=== PATIENT | female | born 1970 | race Caucasian/White ===

== ENCOUNTER → 2017-04-14 | Outpatient (CLI) | payer OTHER, SELFPAY | PROVIDERS: Visit Provider Nurse Practitioner Family | DX: J40 Bronchitis, not specified as acute or chronic (principal); R30.0 Dysuria | CPT/HCPCS: 80053; 80061; 81001; 82607; 82746; 84439; 84443; 85025 ==

== ENCOUNTER → 2017-05-26 09:58 | Outpatient (REF) | payer OTHER, SELFPAY ==
[2017-05-26 14:43] LABS: Basophils # 0.1 K/mm3 (0-0.2); Basophils % 0.9 % (0.1-2.0); Eosinophils # 0.2 K/mm3 (0.0-0.4); Eosinophils % 2.6 % (0.1-12.0); Hematocrit 45.7 % (37.0-47.0); Hemoglobin 14.6 g/dL (12.2-16.2); Lymphocytes # 2.3 K/mm3 (0.7-4.5); Lymphocytes % 25.6 K/mm3 (10-50); Mean Corpuscular Hemoglobin 30.7 pg (27.0-31.2); Mean Platelet Volume 7.9 fl (7.4-10.4); Monocytes # 0.5 K/mm3 (0.1-1.0); Monocytes % 5.2 % (1.7-9.3); Neutrophils # 5.9 K/mm3 (1.8-7.8); Neutrophils % 65.8 % (37.0-80.0); Platelet Count 362 K/mm3 (142-424); Red Blood Count 4.76 M/mm3 (4.20-5.40); Red Cell Distribution Width 12.3 % (11.5-17.5); White Blood Count 8.9 K/mm3 (4.8-10.8)
[2017-05-26 15:40] LABS: Alanine Aminotransferase 14 U/L (12-78); Albumin Level 4.1 gm/dL (3.4-5.0); Albumin/Globulin Ratio 1.2 (1.1-1.8); Alkaline Phosphatase 66 U/L (46-116); Anion Gap 13.4 mEq/L (5-15); Aspartate Amino Transferase 10 U/L (15-37); Bilirubin,Total 0.4 mg/dL (0.2-1.0); Blood Urea Nitrogen 7 mg/dL (7-18); Carbon Dioxide 27 mmol/L (21.0-32.0); Chloride 106 mmol/L (98-107); Creatinine,Serum 0.76 mg/dL (0.55-1.02); Estimated Glomerular Filt Rate 81 ml/min (>60); GFR (African American) 98 ML/MIN (>60); Globulin 3.3 gm/dl (1.3-3.2); Glucose 84 mg/dL (74-106); Potassium 4.4 mmoL/L (3.5-5.1); Sodium 142 mmol/L (136-145); Total Protein,Serum 7.4 gm/dL (6.4-8.2)
[2017-05-27 08:23] LABS: Iron 84 ug/dL (27-159); UIBC 156 ug/dL (131-425)
[2017-05-27 19:23] LABS: Iron Saturation 35 % (15-55)
== END ==
LOC: LAB 09:58
PROVIDERS: Visit Provider Nurse Practitioner Family
DX: E16.2 Hypoglycemia, unspecified (principal); D72.829 Elevated white blood cell count, unspecified; E66.1 Drug-induced obesity
CPT/HCPCS: 80053; 83550; 85025

== ENCOUNTER → 2017-10-17 09:46 | Outpatient (CLI) | payer OTHER, SELFPAY ==
[2017-10-17 10:32] VITALS: PULSE 68; PULSE 72
== END ==
PROVIDERS: Family Provider Nurse Practitioner Family; PCP Nurse Practitioner Family; Visit Provider Nurse Practitioner Family
DX: J44.9 Chronic obstructive pulmonary disease, unspecified (principal); R06.02 Shortness of breath
CPT/HCPCS: 94060; 94640

== ENCOUNTER → 2018-02-06 12:41 | Outpatient (POV) | payer OTHER, SELFPAY ==
--- NOTE | 2018-02-06 14:29 | XR_ITS ---
XR chest 2V HISTORY: ITS.REASON: COPD ORDERING PHYSICIAN: Josemanuel Carmona MD PATIENT AGE: 47 years COMPARISON: 12/26/2013 FINDINGS: There is hyperinflation with attenuation of the peripheral pulmonary vessels consistent with COPD. Calcified granuloma is noted in the anterior clear space. No lobar consolidation or collapse. There are some minimal fibrotic changes in the anterior clear space. No acute bony anomalies. IMPRESSION: COPD, no change with no acute finding
== END ==
PROVIDERS: Family Provider Nurse Practitioner Family; PCP Nurse Practitioner Family; Visit Provider Internal Medicine
DX: J44.9 Chronic obstructive pulmonary disease, unspecified (principal)
CPT/HCPCS: 71046

== ENCOUNTER → 2018-03-02 11:08 | Outpatient (CLI) | payer OTHER, SELFPAY ==
--- NOTE | 2018-03-02 11:10 | XR_ITS ---
XR chest 2V HISTORY: ITS.REASON: cough ORDERING PHYSICIAN: Amanda Jacome PATIENT AGE: 47 years COMPARISON: 02/06/2018 FINDINGS: The cardiomediastinal silhouette and pulmonary vascularity are within normal limits. There is opacification in the right middle lobe consistent with pneumonia. No obvious effusion. No acute bony anomalies. Probable nipple artifact overlying the left lower lung zone. IMPRESSION: Right middle lobe pneumonia
== END ==
LOC: RAD 11:09
PROVIDERS: PCP Emergency Medicine; Visit Provider Nurse Practitioner Family
DX: R05 Cough (principal); R06.02 Shortness of breath; R09.89 Other specified symptoms and signs involving the circulatory and respiratory systems
CPT/HCPCS: 71046

== ENCOUNTER → 2018-06-19 09:53 | Outpatient (POV) | payer OTHER, SELFPAY | PROVIDERS: Visit Provider Internal Medicine | DX: Z00.00 Encounter for general adult medical examination without abnormal findings (principal) ==

== ENCOUNTER → 2018-07-25 09:07 | Outpatient (CLI) | payer OTHER, SELFPAY ==
--- NOTE | 2018-07-25 09:35 | XR_ITS ---
XR chest 2V HISTORY: ITS.REASON: pneumonia ORDERING PHYSICIAN: Amanda Jacome PATIENT AGE: 48 years COMPARISON: PA and lateral chest 03/02/2018 FINDINGS: The cardiomediastinal silhouette and pulmonary vascularity are within normal limits. There is minimal post inflammatory scarring right middle lobe but I doubt residual or recurrent pneumonia. The remainder lung garg are clear. There is no pleural fluid. IMPRESSION: Nonacute chest findings
[2018-07-25 09:55] LABS: Basophils # 0.1 K/mm3 (0-0.2); Basophils % 0.7 % (0.1-2.0); Eosinophils # 0.3 K/mm3 (0.0-0.4); Eosinophils % 3.1 % (0.1-12.0); Hematocrit 43.2 % (37.0-47.0); Hemoglobin 14.6 g/dL (12.2-16.2); Lymphocytes # 2.1 K/mm3 (0.7-4.5); Lymphocytes % 23.6 % (10-50); Mean Corpuscular HGB Conc 33.9 g/dL (31.8-35.4); Mean Corpuscular Hemoglobin 32.3 pg (27.0-31.2); Mean Corpuscular Volume 95.2 fl (81-99); Mean Platelet Volume 6.5 fl (7.4-10.4); Monocytes # 0.5 K/mm3 (0.1-1.0); Monocytes % 5.6 % (1.7-9.3); Neutrophils # 5.9 K/mm3 (1.8-7.8); Platelet Count 397 K/mm3 (142-424); Red Blood Count 4.54 M/mm3 (4.20-5.40); Red Cell Distribution Width 12.8 % (11.5-17.5); White Blood Count 8.7 K/mm3 (4.8-10.8)
== END ==
PROVIDERS: PCP Nurse Practitioner Family; Visit Provider Nurse Practitioner Family
DX: D72.829 Elevated white blood cell count, unspecified (principal); J18.1 Lobar pneumonia, unspecified organism
CPT/HCPCS: 36415; 71046; 85025

== ENCOUNTER → 2018-09-20 11:17 | Outpatient (CLI) | payer OTHER, SELFPAY ==
--- NOTE | 2018-09-20 11:24 | XR_ITS ---
XR chest 2V HISTORY: ITS.REASON: cough ORDERING PHYSICIAN: Amanda Jacome APRN PATIENT AGE: 48 years COMPARISON: 07/25/2018 FINDINGS: The cardiomediastinal silhouette and pulmonary vascularity are within normal limits. COPD. Mild pectus deformity with some silhouetting out of the right heart border. No lobar consolidation or collapse. Bilateral nipple artifact. Old granulomatous disease. IMPRESSION: COPD, no change with no acute finding.
== END ==
PROVIDERS: PCP Nurse Practitioner Family; Visit Provider Nurse Practitioner Family
DX: R05 Cough (principal); J44.9 Chronic obstructive pulmonary disease, unspecified
CPT/HCPCS: 71046

== ENCOUNTER → 2018-12-11 11:11 | Outpatient (POV) | payer OTHER, SELFPAY | PROVIDERS: Visit Provider Internal Medicine | DX: Z00.00 Encounter for general adult medical examination without abnormal findings (principal) ==

== ENCOUNTER → 2019-03-13 11:39 | Outpatient (CLI) | payer OTHER, SELFPAY ==
--- NOTE | 2019-03-13 11:51 | XR_ITS ---
PROCEDURE: XR CERVICAL SPINE 4V CLINICAL INDICATION: neck pain COMPARISON: No exams were available for comparison FINDINGS: Normal alignment. No fracture or dislocation. No lytic or blastic change. The disc spaces are well preserved. There are minimal uncovertebral and facet hypertrophic changes on the left with mild foraminal narrowing of the left C3-C4 and C4-C5 foramen. No cervical rib IMPRESSION: There are minimal uncovertebral and facet hypertrophic changes on the left with mild foraminal narrowing of the left C3-C4 and C4-C5 foramen Otherwise negative cervical spine Dictated by: Ajay Soler MD 03/13/2019 18:06 Electronically signed by Ajay Soler MD in [place] 03/13/2019 18:06
== END ==
PROVIDERS: PCP Nurse Practitioner Family; Visit Provider Nurse Practitioner Family
DX: M54.2 Cervicalgia (principal)
CPT/HCPCS: 72050

== ENCOUNTER → 2019-11-29 16:37 | Outpatient (CLI) | payer OTHER, MEDICAID, SELFPAY ==
[2019-11-29 17:28] LABS: Basophils # 0.1 K/mm3 (0-0.2); Basophils % 0.7 % (0.1-2.0); Eosinophils # 0.3 K/mm3 (0.0-0.4); Eosinophils % 3.4 % (0.1-12.0); Hematocrit 43.2 % (37.0-47.0); Hemoglobin 14.2 g/dL (12.2-16.2); Lymphocytes # 2.6 K/mm3 (0.7-4.5); Lymphocytes % 26.2 % (10-50); Mean Corpuscular HGB Conc 32.9 g/dL (31.8-35.4); Mean Corpuscular Hemoglobin 31.8 pg (27.0-31.2); Mean Corpuscular Volume 96.5 fl (81-99); Mean Platelet Volume 8.3 fl (7.4-10.4); Monocytes # 0.4 K/mm3 (0.1-1.0); Neutrophils # 6.6 K/mm3 (1.8-7.8); Neutrophils % 65.7 % (37.0-80.0); Platelet Count 396 K/mm3 (142-424); Red Blood Count 4.47 M/mm3 (4.20-5.40); Red Cell Distribution Width 12.9 % (11.5-17.5); White Blood Count 10.1 K/mm3 (4.8-10.8)
[2019-11-29 17:29] LABS: Chloride 107 mmol/L (98-107); Potassium 4.7 mmoL/L (3.5-5.1); Sodium 144 mmol/L (136-145)
[2019-11-29 17:31] LABS: Alanine Aminotransferase 5 U/L (12-78); Aspartate Amino Transferase 22 U/L (14-36); Blood Urea Nitrogen 7 mg/dl (7-17); Estimated Glomerular Filt Rate 89 ml/min (>60); GFR (African American) 107 ML/MIN (>60)
[2019-11-29 17:32] LABS: Albumin Level 4.7 g/dl (3.5-5.0); Albumin/Globulin Ratio 1.5 (1.1-1.8); Alkaline Phosphatase 77 U/L (38-126); Anion Gap 17.7 mEq/L (5-15); Bilirubin,Total 0.5 mg/dl (0.2-1.3); Calcium 10.3 mg/dl (8.4-10.2); Carbon Dioxide 24 mmol/L (22.0-30.0); Chol/HDL Ratio 3.7 (1-3.5); Cholesterol 182 mg/dl (140-200); Globulin 3.1 g/dL (1.3-3.2); Glucose 89 mg/dl (74-100); HDL Cholesterol 49 mg/dl (40-60); Total Protein,Serum 7.8 g/dl (6.3-8.2); Triglycerides 116 mg/dl (30-150); VLDL Cholesterol 23 mg/dL (0-40)
[2019-11-29 17:43] LABS: Direct LDL Cholesterol 108.26 mg/dL (100-129)
[2019-11-29 19:41] LABS: Hemoglobin A1C 5.7 % (4.0-6.0)
== END ==
PROVIDERS: Visit Provider Family Medicine
DX: J44.9 Chronic obstructive pulmonary disease, unspecified (principal); R73.9 Hyperglycemia, unspecified
CPT/HCPCS: 80053; 80061; 83036; 85025

== ENCOUNTER → 2019-12-17 07:55 | Outpatient (CLI) | payer OTHER, MEDICAID, SELFPAY ==
--- NOTE | 2019-12-17 07:56 | CT_ITS ---
PROCEDURE: CT CHEST WO CON CLINICAL INDICATION: lung collapse ?Lung collapse,,soa,,smoker shortness of air, smoker, lung collapse, COMPARISON: CT CHESTW CT chest w con from 07/16/2018 TECHNIQUE: Axial images obtained with sagittal and coronal reformats. All CT scans at the facility use one or more dose reduction, viz: automated exposure control, ma/kV adjustment per patient size (including targeted exams where dose is matched to indication, i.e. head), or iterative reconstruction technique. FINDINGS: HEART AND MEDIASTINAL STRUCTURES: There are coronary artery calcifications. No mediastinal or hilar mass or adenopathy evident. No central airway obstruction LUNGS AND PLEURAL SPACES: There is hyperinflation with attenuation of the peripheral pulmonary vessels consistent with COPD. Scarring is present in the lung apices and the left upper lobe medially. Atelectasis/scarring noted in the right upper lobe medially which appears somewhat more prominent compared to the previous exam. There are also atelectatic or fibrotic changes in the right lung base. The volume loss/atelectatic changes in the right lung base has shown some improvement compared to the previous exam. There is now some peripheral subpleural opacity noted in the right lung base posteriorly consistent with an area of atelectasis or patchy infiltrate. In the upper lung zones there is a faint diffuse mosaic attenuation. Calcified granuloma is present in the left upper lobe medially. The right middle lobe collapse has improved since the previous exam. There does remain some volume loss in the medial aspect of the right middle lobe BONY STRUCTURES: No acute bony abnormalities apparent. UPPER ABDOMEN: Unremarkable. Previously there was noted celiac artery stenosis. This is not adequately evaluated without IV contrast on today's exam. ADDITIONAL FINDINGS: No other significant abnormalities. IMPRESSION: 1. COPD with scattered areas of atelectasis/fibrosis in the right upper lobe, left upper lobe, right lower lobe, and the right middle lobe. These areas of volume loss in the right middle lobe and right lower lobe has shown improvement. The atelectatic changes in the right upper lobe are slightly worse. There is a new patchy area of infiltrate in the subpleural region in the right lower lobe posteriorly. Bronchiolitis obliterans with organizing pneumonia is a consideration. 2. There is a mild diffuse mosaic attenuation appearance of the upper lung zones. This is nonspecific and could be seen with pulmonary infection such as atypical pneumonia or interstitial lung disease. Dictated by: Ajay Soler MD 12/18/2019 09:05 Ajay Soler MD in [place] 12/18/2019 09:05
[2019-12-17 09:47] LABS: Coronavirus 19 IgG Antibody Negative (Negative); Coronavirus 19 IgM Antibody Negative (Negative)
== END ==
PROVIDERS: PCP Nurse Practitioner Family; Visit Provider Internal Medicine Pulmonary Disease
DX: Z01.818 Encounter for other preprocedural examination (principal); J98.19 Other pulmonary collapse
CPT/HCPCS: 36415; 71250; 86328

== ENCOUNTER 2019-12-18 09:21 | Day surgery (SDC) | payer OTHER, MEDICAID, SELFPAY ==
[2019-12-16 12:46] VITALS: BMI 23.0
[2019-12-18] VITALS (12 sets, daily range): BP systolic 109–156; BP diastolic 68–89; PULSE 77–108; RESP 16–18; TEMP 36.4–36.6; O2SAT 94–100
[2019-12-18 09:55] LABS: Urine Pregnancy, HCG Qual. Negative (Negative)
--- NOTE | 2019-12-18 10:15 | SUR.PREOP ---
I started pt IV in left wrist. she complained of pain at insertion site. IV went in easily with blood return. IV flushed with no difficulty. No swelling or bruising at IV site. Fluids were started. Pt stated that it still hurt. Site was checked again. No bruising or infiltration seen. Fluids were dripping freely. I asked if she would prefer us to remove the IV and restart in another location. She stated it doesn't hurt that much and did not want a new IV started.
--- NOTE | 2019-12-18 13:56 | HMH.PROC ---
[facility] Procedure Note Procedure Note:: Bronchoscopy: Performed under conscious sedation, total of 125 MCG of fentanyl and 4 mg of Versed given for the procedure. Clean bronchoscope was introduced to the left naris and advanced to the vocal cords, 1% 5 cc of lidocaine was injected there and then bronchoscope advanced into the trachea and 1% 5 cc of lidocaine were injected combined into the main trachea, right and left bronchus. These were examined to the subsegmental bronchi. Mild mucous secretions noted. All the airways appeared normal except the jose between the right heel and lateral segment is not sharp. However the right middle lobe medial and lateral segment bronchi grossly appeared patent. BAL was performed the right middle lobe medial segment and sent for analysis. Patient tolerated the procedure well without any complications. We will see the patient in clinic in 10 days.
== END 2019-12-18 11:09 | disposition home or self-care (01) ==
LOC: OUTP 09:22
PROVIDERS: PCP Nurse Practitioner Family; Visit Provider Internal Medicine Pulmonary Disease
PROC: (CPT 31624; principal; 2019-12-18 10:15)
DX: J98.19 Other pulmonary collapse (principal); J18.1 Lobar pneumonia, unspecified organism; Z72.0 Tobacco use; J44.9 Chronic obstructive pulmonary disease, unspecified; Z79.51 Long term (current) use of inhaled steroids; Z79.899 Other long term (current) drug therapy; Z88.0 Allergy status to penicillin; Z88.8 Allergy status to other drugs, medicaments and biological substances
CPT/HCPCS: 31624; 81025; 87070; 87102; 87205; 87206; 99152

== ENCOUNTER → 2020-02-11 15:21 | Outpatient (CLI) | payer OTHER, MEDICAID, SELFPAY ==
--- NOTE | 2020-02-11 15:43 | ECG_ITS ---
APPROVED REPORT Exam: Resting ECG HR:71 bpm ECG Measurements Heart Rate 71 AXES IN 166 P 55 QRSd 84 QRS 69 QT 392 T 69 QTc 425 Conclusion Normal sinus rhythm Normal ECG Electronically signed by : Jimy Shankar, 02/24/2020 16:37:42
[2020-02-11 15:48] LABS: Basophils # 0.1 K/mm3 (0-0.2); Basophils % 0.9 % (0.1-2.0); Eosinophils # 0.3 K/mm3 (0.0-0.4); Hematocrit 40.2 % (37.0-47.0); Hemoglobin 12.9 g/dL (12.2-16.2); Lymphocytes # 2.8 K/mm3 (0.7-4.5); Lymphocytes % 34.8 % (10-50); Mean Corpuscular Volume 96.9 fl (81-99); Mean Platelet Volume 6.9 fl (7.4-10.4); Monocytes # 0.4 K/mm3 (0.1-1.0); Monocytes % 4.9 % (1.7-9.3); Neutrophils # 4.5 K/mm3 (1.8-7.8); Neutrophils % 55.4 % (37.0-80.0); Platelet Count 408 K/mm3 (142-424); Red Blood Count 4.15 M/mm3 (4.20-5.40); White Blood Count 8.1 K/mm3 (4.8-10.8)
[2020-02-11 18:24] LABS: Chloride 103 mmol/L (98-107); Potassium 4.4 mmoL/L (3.5-5.1); Sodium 139 mmol/L (136-145)
[2020-02-11 18:27] LABS: Anion Gap 13.4 mEq/L (5-15); Blood Urea Nitrogen 10 mg/dl (7-17); Carbon Dioxide 27 mmol/L (22.0-30.0); Estimated Glomerular Filt Rate 76 ml/min (>60); GFR (African American) 92 ML/MIN (>60)
[2020-02-11 18:28] LABS: Calcium 9.3 mg/dl (8.4-10.2); Glucose 115 mg/dl (74-100)
[2020-02-11 19:46] LABS: Coronavirus 19 IgG Antibody Negative (Negative); Coronavirus 19 IgM Antibody Negative (Negative)
== END ==
PROVIDERS: Visit Provider Otolaryngology
DX: Z01.818 Encounter for other preprocedural examination (principal); D49.89 Neoplasm of unspecified behavior of other specified sites; L98.9 Disorder of the skin and subcutaneous tissue, unspecified
CPT/HCPCS: 36415; 80048; 85025; 86328; 93005

== ENCOUNTER 2020-02-13 06:34 | Day surgery (SDC) | payer OTHER, MEDICAID, SELFPAY ==
[2020-02-11 14:54] VITALS: BMI 23.0
[2020-02-13 06:57] LABS: HCG Qualitative, Serum Negative (Negative)
[2020-02-13 07:04] VITALS: BP 141/74; PULSE 77; RESP 18; TEMP 36.9; O2SAT 100
--- NOTE | 2020-02-13 07:33 | HMH.ANESCL ---
[facility] Anesthesia Checklist - Structural Data Admitted From: Home Planned Operative Procedure/s: excision facial lesions x 2 Consent for Planned Operative Procedure(s) Verified: Yes - Additional verifications Anesthesia Reactions: No Hx Blood Transfusions: No Blood Transfusion Reaction: No - Airway Assessment C-Spine Mobility Assessed: Yes TMJ Mobility Assessed: Yes Dentition: Edentulous - Neurological Assessment Level of Consciousness: Awake, Alert, Appropriate - Anesthesia Plan Anesthesia Risk discussed: Yes Anesthesia Plan: Verified ASA Class: II Anesthesia Type: MAC [facility] History I have reviewed the patient's past medical history: Yes Medical History: Reports:: Chronic Obstructive Pulmonary Disease (COPD) Denies:: Cancer, Diabetes Mellitus Type 1, Diabetes Mellitus Type 2, Internal Pacemaker, MRSA, Seizures *Have you ever received a pneumonia vaccine?: Yes *Have you received a flu vaccine this season?: Yes Other Medical History: Denies: Blood Transfusion Reaction Anesthesia experience/problems:: none Other Surgeries: Yes: Cholecystectomy, Diagnostic Lap, Skin Cancer Excision, Other. No: Colonoscopy, Pacemaker Amputation: No Fractures: Yes - *Social History Smoking Status: Current every day smoker Tobacco Type: cigarettes # Packs/Day (cigarettes): 1 Alcohol Intake: never Substance Use Type: denies use *Occupational Status:: employed Housing: house Household Members: family *Travel in the last 8 weeks: None Family Hx:: No significant family history
[2020-02-13 08:30] VITALS: BP 145/81; PULSE 84; RESP 18; TEMP 36.2; O2SAT 98
--- NOTE | 2020-02-13 08:31 | HMH.OPNOTE ---
Date of procedure: 02/13/20 Pre-op Diagnosis:: 1. 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 Neoplasm left inferior nasofacial groove 1 cm Post-op Diagnosis:: Same Procedure performed:: 1. Excision of neoplasm left cheek 1.5 cm with tissue rearrangement Z-plasty repair 2. Excision of neoplasm left superior nasofacial groove 1.5 cm with tissue rearrangement Z-plasty repair 3. Excision of neoplasm left inferior nasofacial groove 1 cm with simple repair Surgeon:: Gerardo Andersen MD COSTUME SHOP COORDINATOR:: Felix Green Anesthesia: MAC Estimated blood loss (mL): 5 Operative findings:: Same Operative note:: With the patient under a MAC anesthesia, the face was prepped and draped. The eyes were protected with Steri-Strips. The perilesional areas on the left cheek and left nasofacial groove were infiltrated with a total of 2.5 cc of 1% lidocaine with epi. The lesion on the left cheek measured 1.5 cm, the marked out was incised and the lesion was excised and submitted. Superior and inferior incisions were made and a tissue rearrangement Z-plasty repair was done with interrupted 5-0 nylon sutures. The lesion on the left superior nasofacial groove measured 1.5 cm, the nabil up was incised and the lesion was excised and submitted. Bleeding was stopped with bipolar cautery. And Surgicel snow was placed in the defect. Anterior and posterior incisions were made and a tissue rearrangement Z-plasty repair was done with interrupted 5-0 nylon sutures. The lesion on the inferior left nasofacial groove measured 1 cm the nabil up was incised and the lesion was excised. Bleeding was stopped with bipolar cautery. Surgicel snow was placed in the defect. And a simple repair was done with interrupted 5-0 nylon sutures. Dermabond dressings were applied to all of the excisions and the patient was sent to recovery in good general condition. Condition: stable Disposition: PACU Complications:: none
[2020-02-13 08:45] VITALS: BP 146/80; PULSE 88; RESP 18; TEMP 36.2; O2SAT 98
[2020-02-13 09:00] VITALS: BP 148/71; PULSE 77; RESP 16; TEMP 36.2; O2SAT 98
== END 2020-02-13 09:00 | disposition home or self-care (01) ==
LOC: OR 06:36
PROVIDERS: PCP Nurse Practitioner Family; Visit Provider Otolaryngology
PROC: (CPT 14040; principal; 2020-02-13 08:15)
DX: L57.0 Actinic keratosis (principal); D36.11 Benign neoplasm of peripheral nerves and autonomic nervous system of face, head, and neck; J44.9 Chronic obstructive pulmonary disease, unspecified; Z72.0 Tobacco use; Z88.0 Allergy status to penicillin; Z88.8 Allergy status to other drugs, medicaments and biological substances
CPT/HCPCS: 14040; 11106; 14060; 84703; 96374

== ENCOUNTER → 2020-03-06 08:47 | Outpatient (CLI) | payer OTHER, MEDICAID, SELFPAY ==
--- NOTE | 2020-03-06 08:51 | CT_ITS ---
PROCEDURE: CT ABDOMEN PELVIS WO/W CON CLINICAL INDICATION: PELVIC MASS pelvic mass...RLQ...area marked with BB intermittent pain COMPARISON: CT CT CHEST WO CON from 12/17/2019 TECHNIQUE: IV Contrast: 75ML Isovue 370 Oral Contrast None Axial images obtained with sagittal and coronal reformats. All CT scans at the facility use one or more dose reduction, viz: automated exposure control, ma/kV adjustment per patient size (including targeted exams where dose is matched to indication, i.e. head), or iterative reconstruction technique. FINDINGS: LOWER THORAX: Atelectatic changes are present in the lung bases. ABDOMEN & PELVIS: There has been a prior cholecystectomy. The liver, spleen, adrenal glands, and pancreas have an unremarkable appearance. There is mild ectasia of the left renal pelvis and both ureters which are nonspecific and could be due to patient's hydration status. Small exophytic cyst projects off the lateral aspect of the left kidney at 8 mm. There is a large cystic lesion in the right mid abdominal area. This measures 9.8 cm cephalad caudad, 9.2 cm transverse, and 9.7 cm AP this is contiguous with the lower pole and anterior aspect of the right kidney and also abuts the inferior aspect of the right hepatic lobe medially the. This is contiguous with the lateral aspect of the ascending colon. The ascending colon is displaced medially. There is some minimal increased density along the posterior and superior aspect of the cyst slightly irregular in nature and also some minimal thickening of the cyst wall medially but with no significant enhancement of the cyst wall. Unremarkable appendix. Bowel gas pattern is nonspecific. There is a small umbilical hernia containing fat. No pelvic mass or abnormal fluid collection is evident. There is mild dilatation of the celiac artery just proximal to the its bifurcation measuring 1 cm in diameter. Moderate to high-grade stenosis involves the proximal aspect of the celiac artery of 50-60 percent with poststenotic dilatation. No acute bony anomalies are evident. IMPRESSION: 1. Large cystic lesion within the mid aspect of the right abdomen as described above. This is inseparable from the lower pole of the right kidney and could represent a large exophytic renal cyst. A large enteric duplication cyst is also consideration. There are only minimal complex features with some irregular increased density in the upper aspect of the cyst and some minimal thickening of the wall of the cyst inferiorly but no significant enhancement or nodularity. Follow-up is suggested to confirm stability. 2. Moderate to high-grade stenosis involving the proximal aspect of the celiac artery with mild poststenotic dilatation. Dictated by: Ajay Soler MD 03/07/2020 09:13 Ajay Soler MD in [place] 03/07/2020 09:13
== END ==
PROVIDERS: PCP Emergency Medicine; Visit Provider Nurse Practitioner Women's Health
DX: R19.00 Intra-abdominal and pelvic swelling, mass and lump, unspecified site (principal)
CPT/HCPCS: 74178; Q9967

== ENCOUNTER → 2020-03-09 10:47 | Outpatient (CLI) | payer OTHER, MEDICAID, SELFPAY ==
--- NOTE | 2020-03-09 10:49 | CA_ITS ---
APPROVED REPORT Right Upper Extremity Venous Study for DVT. Resident Surgeon: Marquita Mariee CRT Indications Upper Extremity Pain: Right Upper Extremity Edema: Right IV stick on 03/06/20 Vein Imaging IJV (R): Normal phasic flow is seen. Normal flow, augmentation and compression is seen. No evidence of Deep Vein Thrombosis. No abnormalities are demonstrated. SCV (R): Normal phasic flow is seen. Normal flow, augmentation and compression is seen. No evidence of Deep Vein Thrombosis. No abnormalities are demonstrated. Axillary (R): Normal phasic flow is seen. Normal flow, augmentation and compression is seen. No evidence of Deep Vein Thrombosis. No abnormalities are demonstrated. Brachial (R): Normal phasic flow is seen. Normal flow, augmentation and compression is seen. No evidence of Deep Vein Thrombosis. No abnormalities are demonstrated. Basilic (R): Normal phasic flow is seen. Normal flow, augmentation and compression is seen. No evidence of Deep Vein Thrombosis. No abnormalities are demonstrated. Cephalic (R): Non-Compressible Radial (R): Normal phasic flow is seen. Normal flow, augmentation and compression is seen. No evidence of Deep Vein Thrombosis. No abnormalities are demonstrated. Ulnar (R): Normal phasic flow is seen. Normal flow, augmentation and compression is seen. No evidence of Deep Vein Thrombosis. No abnormalities are demonstrated. Findings RUE negative for DVT. RUE positive for SVT in the Cephalic vein. Conclusion RUE negative for DVT. RUE positive for SVT in the Cephalic vein. Critical Notification Critical Value: Yes Physician Notified Date: 03/09/2020 Time: 1145 Physician Name: Javier Report Read Back Electronically signed by : Ajay Soler MD 03/09/2020 17:09:10
== END ==
PROVIDERS: PCP Emergency Medicine; Visit Provider Emergency Medicine
DX: M79.601 Pain in right arm (principal); R60.0 Localized edema
CPT/HCPCS: 93971

== ENCOUNTER 2020-03-23 08:45 | Day surgery (SDC) | payer OTHER, MEDICAID, SELFPAY ==
[2020-03-23] VITALS (12 sets, daily range): BP systolic 135–178; BP diastolic 76–94; PULSE 63–83; RESP 16–20; TEMP 36.9; O2SAT 94–100; BMI 23.3
--- NOTE | 2020-03-23 | IR_ITS ---
APPROVED REPORT Patient Location: Outpatient PROCEDURES Left heart catheterization Left ventriculogram Selective coronary angiogram Selective engagement of the superior mesenteric artery with selective superior mesenteric artery angiogram Selective engagement of the celiac artery with selective celiac artery angiogram Bare-metal stent deployment to the ostial proximal celiac artery INDICATION Coronary artery disease, Angina pectoris, Mesenteric ischemia, Celiac artery stenosis Informed consent was obtained prior to the procedure. COMPLICATIONS none Estimated Blood Loss: less than 10 mls TECHNIQUE One percent lidocaine was used to anesthetize the right groin. The right femoral artery was accessed via the Seldinger technique. A 4-Kenyan sheath was placed in the right femoral artery. The JL-4 and JR-4 catheter was also used to perform left heart catheterization left ventriculogram and selective coronary angiogram. The JR4 catheter was used to selectively intubate the celiac artery and perform selective angiography. At the end of the procedure the 4 Kenyan sheath was exchanged for a 7 Kenyan sheath and therapeutic heparin was administered giving a therapeutic ACT. A 7 Kenyan short FLOYD catheter was used to cannulate the celiac artery and a Choice PT wire was placed distally. A 7 mm x 15 mm Herculink stent was deployed at 14 and then 20 juli to reduce the severe stenosis to 0%. After achieving excellent angiographic results the apparatus was removed the groin was reprepped gloves were changed sheath was removed good hemostasis was achieved using Perclose device patient was transferred to the postop holding area stable condition ANGIOGRAPHIC RESULTS The left main artery Normal The left anterior descending artery Has proximal 20 to 30% stenosis followed by mid vessel 30% stenosis The circumflex artery Nondominant and has mid vessel 10 to 20% stenosis The right coronary artery Is a dominant vessel and has mid vessel 20% stenoses The VILLANUEVA ventriculogram reveals Normal 65% The left ventricular end-diastolic pressure 10 mmHg The superior mesenteric artery is normal The celiac artery has an ostial 80% stenosis IMPRESSION Mild coronary disease as described above Normal ejection fraction Normal left ventricular end-diastolic pressure Severe celiac artery stenosis Successful stenting of the ostial celiac artery severe disease reduced to 0% with 1 bare-metal stent PLAN 1. Aspirin Plavix for 1 month then drop Plavix 2. If patient has polyvascular disease I would recommend Xarelto 2.5 twice daily plus aspirin 81 mg daily 3. Risk factor modification for atherosclerotic disease 4. LDL less than 55 Electronically signed by : Kevin Coelho, 03/23/2020 13:59:43
[2020-03-23 09:10] LABS: Basophils # 0.1 K/mm3 (0-0.2); Eosinophils # 0.4 K/mm3 (0.0-0.4); Eosinophils % 3.5 % (0.1-12.0); Hemoglobin 13.6 g/dL (12.2-16.2); Lymphocytes # 2.5 K/mm3 (0.7-4.5); Lymphocytes % 23.2 % (10-50); Mean Corpuscular HGB Conc 32.5 g/dL (31.8-35.4); Mean Corpuscular Hemoglobin 31.1 pg (27.0-31.2); Mean Corpuscular Volume 95.8 fl (81-99); Mean Platelet Volume 7.1 fl (7.4-10.4); Monocytes # 0.4 K/mm3 (0.1-1.0); Monocytes % 4.1 % (1.7-9.3); Neutrophils # 7.2 K/mm3 (1.8-7.8); Neutrophils % 68.1 % (37.0-80.0); Platelet Count 449 K/mm3 (142-424); Red Blood Count 4.38 M/mm3 (4.20-5.40); Red Cell Distribution Width 13.3 % (11.5-17.5); White Blood Count 10.6 K/mm3 (4.8-10.8)
[2020-03-23 09:20] LABS: Chloride 109 mmol/L (98-107); Potassium 3.9 mmoL/L (3.5-5.1); Sodium 143 mmol/L (136-145)
[2020-03-23 09:23] LABS: Anion Gap 13.9 mEq/L (5-15); Blood Urea Nitrogen 6 mg/dl (7-17); Carbon Dioxide 24 mmol/L (22.0-30.0); Creatinine Clearance Estimated 71 mL/min (50-200); Estimated Glomerular Filt Rate 66 ml/min (>60); GFR (African American) 80 ML/MIN (>60)
[2020-03-23 09:24] LABS: Calcium 9.7 mg/dl (8.4-10.2); Glucose 101 mg/dl (74-100)
[2020-03-23 09:28] LABS: HCG Qualitative, Serum Negative (Negative)
[2020-03-23 09:46] LABS: Coronavirus 19 IgG Antibody Negative (Negative); Coronavirus 19 IgM Antibody Negative (Negative)
[2020-03-23 15:07] LABS: CATHL Activated Clotting Time 233 SEC (74-125)
--- NOTE | 2020-03-23 15:54 | HMH.PHACLD ---
Arlin Hirsch has received discharge medication counseling on the following medications: PATIENT IS CURRENTLY TAKING ASPIRIN 81 MG DAILY AND BISOPROLOL 5 MG DAILY. MD STARTING PLAVIX 75 MG DAILY AND LIPITOR 40 MG DAILY. PATIENT HAD PERIPHERAL STENT.
== END 2020-03-23 16:47 | disposition home or self-care (01) ==
LOC: CATHLAB 08:46
PROVIDERS: PCP Emergency Medicine; Visit Provider Internal Medicine
DX: I77.4 Celiac artery compression syndrome; R07.9 Chest pain, unspecified; R93.5 Abnormal findings on diagnostic imaging of other abdominal regions, including retroperitoneum; Z72.0 Tobacco use; Z82.49 Family history of ischemic heart disease and other diseases of the circulatory system; I77.1 Stricture of artery; J44.9 Chronic obstructive pulmonary disease, unspecified; Z88.1 Allergy status to other antibiotic agents; Z88.0 Allergy status to penicillin
CPT/HCPCS: 37236; 80048; 84703; 85025; 85347; 86328; 93458; 99152; 99153; C1725; C1760; C1769; C1876; C1894; J1644; Q9967

== ENCOUNTER → 2020-03-30 11:14 | Outpatient (CLI) | payer OTHER, SELFPAY ==
[2020-03-30 11:45] LABS: Chloride 104 mmol/L (98-107); Potassium 4.2 mmoL/L (3.5-5.1); Sodium 138 mmol/L (136-145)
[2020-03-30 11:46] LABS: Basophils # 0.1 K/mm3 (0-0.2); Basophils % 0.9 % (0.1-2.0); Eosinophils # 0.4 K/mm3 (0.0-0.4); Eosinophils % 3.9 % (0.1-12.0); Hematocrit 40.4 % (37.0-47.0); Hemoglobin 13.4 g/dL (12.2-16.2); Lymphocytes # 2.2 K/mm3 (0.7-4.5); Lymphocytes % 21.8 % (10-50); Mean Corpuscular HGB Conc 33.3 g/dL (31.8-35.4); Mean Corpuscular Volume 96.1 fl (81-99); Monocytes # 0.4 K/mm3 (0.1-1.0); Monocytes % 4.5 % (1.7-9.3); Neutrophils # 6.9 K/mm3 (1.8-7.8); Neutrophils % 68.9 % (37.0-80.0); Platelet Count 414 K/mm3 (142-424)
[2020-03-30 11:48] LABS: Anion Gap 12.2 mEq/L (5-15); Blood Urea Nitrogen 6 mg/dl (7-17); Calcium 9.6 mg/dl (8.4-10.2); Carbon Dioxide 26 mmol/L (22.0-30.0); Estimated Glomerular Filt Rate 76 ml/min (>60); GFR (African American) 92 ML/MIN (>60); Glucose 108 mg/dl (74-100)
== END ==
PROVIDERS: Visit Provider Internal Medicine
DX: I25.10 Atherosclerotic heart disease of native coronary artery without angina pectoris (principal); I77.4 Celiac artery compression syndrome; R09.89 Other specified symptoms and signs involving the circulatory and respiratory systems; Z72.0 Tobacco use
CPT/HCPCS: 36415; 80048; 85025

== ENCOUNTER → 2020-06-16 11:37 | Outpatient (CLI) | payer OTHER, SELFPAY ==
[2020-06-16 12:30] VITALS: PULSE 70; PULSE 74
== END ==
PROVIDERS: PCP Emergency Medicine; Visit Provider Internal Medicine Pulmonary Disease
DX: R06.02 Shortness of breath (principal)
CPT/HCPCS: 94060; 94640; 94726; 94729

== ENCOUNTER → 2020-06-16 12:40 | Outpatient (CLI) | payer OTHER, SELFPAY ==
--- NOTE | 2020-06-16 12:50 | XR_ITS ---
PROCEDURE: XR CHEST 2V CLINICAL HISTORY: RML collapse COMPARISON: CR CXR2V XR chest 2V from 03/02/2018 CR Chest from 07/16/2018 CR CXR2V XR chest 2V from 07/25/[address] CHEST WO CON from 12/17/[address] ABDOMEN PELVIS WO/W CON from 03/06/2020 FINDINGS: The cardiomediastinal silhouette and pulmonary vascularity are within normal limits. COPD. There is increased density in the right lower lung zone with silhouetting out of the right heart border consistent with right middle lobe collapse as noted on the lateral view is well. The remaining lungs are clear.. There are no recent studies available for comparison. No effusions. No acute bony findings IMPRESSION: COPD with right middle lobe collapse. Consider CT with contrast for further evaluation to exclude a post obstructive lesion Dictated by: Ajay Soler MD 06/16/2020 14:30 Ajay Soler MD in [place] 06/16/2020 14:30
[2020-06-17 19:09] LABS: Alpha-1-Antitrypsin 199 mg/dL (101-187)
== END ==
PROVIDERS: Visit Provider Internal Medicine Pulmonary Disease
DX: J44.9 Chronic obstructive pulmonary disease, unspecified (principal)
CPT/HCPCS: 36415; 71046; 82103

== ENCOUNTER 2020-07-30 10:52 | Emergency (ER) | payer OTHER, SELFPAY ==
[2020-07-30 10:53] VITALS: BP 142/81; PULSE 74; RESP 18; TEMP 36.9; O2SAT 98; BMI 22.8
--- NOTE | 2020-07-30 11:02 | XR_ITS ---
PROCEDURE: XR ANKLE RT MIN 3V CLINICAL INDICATION: fall Posttraumatic pain COMPARISON: CR XR FOOT RT MIN 3V from 07/30/2020 FINDINGS: No fracture or dislocation. No lytic or blastic change. There is normal mineralization. The joint spaces are well-preserved. No significant degenerative/arthritic changes. No erosive changes evident. Other findings:None. IMPRESSION: No acute findings. Dictated by: Ajay Soler MD 07/30/2020 11:51 Ajay Soler MD in [place] 07/30/2020 11:51
[2020-07-30 11:15] VITALS: BP 142/81; PULSE 74; RESP 18; TEMP 36.9; O2SAT 98; BMI 22.8
--- NOTE | 2020-07-30 11:56 | HMH.EDUTC ---
[facility] [place] Disposition Clinical Impression: Foot sprain Qualifiers: Encounter type: initial encounter Laterality: right Qualified Code(s): S93.601A - Unspecified sprain of right foot, initial encounter Disposition: Home, Self-Care Condition on Discharge: Good Instructions: How to Use Crutches, DI for Ankle Sprain, How To Perform RICE (Rest, Ice, Compress, Elevate), DI for Foot Sprain, How to Use a Walking Boot Additional Instructions: *weight bearing as tolerated *RICE, Rest the extremity, Ice 15-20 minutes 3-4 times daily, Compress- wear the sunday wrap as discussed as much as possible to help reduce swelling and pain, Elevate the extremity when at rest *Sunday wrap is for support and help control swelling, use it except in the shower. Be sure that is not to tight but not to loose either *Elevate when resting *Ibuprofen every 6-8 hours as needed for pain an inflammation. If need something more can take Tylenol in between doses of Ibuprofen to help Immediately follow up with your family doctor for new or worsening of symptoms, or no noticeable improvement over the next 3-5 days Follow up with Family Doctor if no improvement or any worsening of symptoms for further treatment and evaluation Return if needed Straight to ER if any life threatening symptoms Referrals: Mario Herrera MD [Primary Care Provider] - Forms: Work/School Release Time of Disposition: 12:06 Medical Decision Making - Shahbaz Inquiry Pt receiving controlled substance: No Shahbaz was queried for this patient: No Vital Signs: 07/30/20 10:53 07/30/20 11:15 Temperature 98.4 F 98.4 F Temperature Source Oral Oral Pulse Rate [Right] 74 74 Respiratory Rate 18 18 Blood Pressure [Right Arm] 142/81 H 142/81 H Blood Pressure Mean [Right Arm] 101 101 Blood Pressure Source [Right Arm] Automatic Cuff Blood Pressure Position [Right Arm] Sitting 02 Sat by Pulse Oximetry 98 98 Oxygen Delivery Method Room Air Room Air - Radiology Data #1 Image(s): Foot/Toes Image Reviewed: Yes I reviewed the patient's radiology image, Yes I have reviewed radiologist's interpretation No acute findings #2 Image(s): Ankle Image Reviewed: Yes I reviewed the patient's radiology image, Yes I have reviewed radiologist's interpretation No acute findings. [facility] [place] HPI - General Stated complaint: a/o 07/28 right foot Time Seen by Provider: 07/30/20 11:56 Mode of Arrival: Ambulatory Source of Information: Patient Limitations: No Limitations Description of Symptoms (Recalled from Triage Doc. by RN): PATIENT C/O PAIN TO RIGHT FOOT AFTER TWISTING IT YESTERDAY HEENT Symptoms (Recalled from RN notes): No Resp Symptoms (Recalled from RN notes): No Skin Symptoms (Recalled from RN notes): No MS Symptoms (Recalled from RN notes): Yes Functional Status (Recalled from RN notes): WNL - History of Present Illness Provider Complaint: Patient state that she was wearing sandles yesterday and slipped on some plastic and twisted her right foot States that she has been having pain in the top of her foot that shoots around the side of her foot ever since and having some swelling and pain when she tries to walk on it - Related Data Home Medications Medication Instructions Recorded Confirmed bisoproloL fumarate [Bisoprolol 5 mg PO QDAY 03/23/20 07/30/20 Fumarate] Aspirin [Low Dose Aspirin EC] See Rx Instructions .ROUTE .COMPLEX 07/30/20 07/30/20 Atorvastatin Calcium [Lipitor 40mg 40 mg PO HS 07/30/20 07/30/20 Tab] Umeclidinium Brm/Vilanterol Tr 1 inh INHALATION DAILY 07/30/20 07/30/20 [Anoro Ellipta] Allergies Allergy/AdvReac Type Severity Reaction Status Date / Time fluoxetine [From Prozac] Allergy Intermediate I-RASH Verified 07/21/20 09:53 Penicillins Allergy Intermediate I-RASH Verified 07/21/20 09:53 - Worker's Comp Is this a Worker's Comp case?: No H History - Hepatitis A Screen Drug use history?: No High risk sexual behaviors?: No History of sexually
[2020-07-30 12:16] VITALS: BP 142/81; PULSE 74; RESP 18; TEMP 36.9; O2SAT 98
== END 2020-07-30 12:20 | disposition home or self-care (01) ==
PROVIDERS: Emergency Provider Nurse Practitioner; PCP Emergency Medicine
DX: S93.601A Unspecified sprain of right foot, initial encounter (principal); X50.1XXA Overexertion from prolonged static or awkward postures, initial encounter; Y92.89 Other specified places as the place of occurrence of the external cause; E78.5 Hyperlipidemia, unspecified; J44.9 Chronic obstructive pulmonary disease, unspecified; F17.210 Nicotine dependence, cigarettes, uncomplicated; Z88.0 Allergy status to penicillin
CPT/HCPCS: 29515; 73610; 73630; 99202; G0463

== ENCOUNTER → 2020-08-05 12:57 | Outpatient (CLI) | payer OTHER, SELFPAY ==
--- NOTE | 2020-08-05 13:02 | US_ITS ---
APPROVED REPORT Exam Type: Ankle to Brachial Index Magazine Journalist: Marquita Mariee CRT Indications Claudication: Bilaterally PAD Current Smoker History of Smoking CAD hx- Right celiac stent Risk Factors History of PAD: Right CAD Hyperlipidemia Cardiac Disease Current Smoker History of Smoking Pressures/Indices Right Indices Left Indices Brachial 135.00 mmHg Brachial 134.00 mmHg Low Thigh 92.00 mmHg 0.68 Low Thigh 124.00 mmHg 0.92 Calf 100.00 mmHg 0.74 Calf 134.00 mmHg 0.99 Ankle(PT) 96.00 mmHg 0.71 Ankle(PT) 119.00 mmHg 0.88 Ankle(DP) 88.00 mmHg 0.65 Ankle(DP) 115.00 mmHg 0.85 Digit 59.00 mmHg 0.44 Digit 85.00 mmHg 0.63 Findings RT THOMAS=0.71 LT THOMAS=0.88 RT TPI=0.44 LT TPI=0.63 Conclusion RT THOMAS=0.71 LT THOMAS=0.88 RT TPI=0.44 LT TPI=0.63 Mild left and moderate right arterial disease Electronically signed by : Ajya Soler MD 08/05/2020 17:34:31
--- NOTE | 2020-08-05 15:33 | MR_ITS ---
PROCEDURE: MR LUMBAR SPINE WO CON CLINICAL INDICATION: back pain Lbp when bending over [id number]. COMPARISON: CT CT ABDOMEN PELVIS WO/W CON from 03/06/2020 TECHNIQUE: Standard multiplanar multiecho sequences are performed without contrast. 3-D MIP and myelographic images are also rendered and reviewed FINDINGS: There is normal alignment. Spinal cord ends at the L1-L2 level L1-L2: Unremarkable. L2-L3: Unremarkable. L3-L4: Mild facet and ligamentum hypertrophy. L4-5: Minimal bulging disc with facet and ligamentum hypertrophy. The bulging disc is slightly eccentric to the right causing moderate right-sided and mild left-sided foraminal narrowing. Small annular fissures are present in both the right and left foraminal region of the disc. L5-S1: Mild concentric bulging disc with mild facet and ligamentum hypertrophy with mild bilateral foraminal narrowing left slightly greater than right. No extruded herniated disc or bony canal stenosis. There is a large cystic structure along the inferior aspect of the right kidney measuring approximately 10 by 9 cm suggesting a large right renal cyst with some debris posteriorly. This was demonstrated on the previous CT scan of 03/06/2020 IMPRESSION: 1. L3-L4: Mild facet and ligamentum hypertrophy. 2. L4-5: Minimal bulging disc with facet and ligamentum hypertrophy. The bulging disc is slightly eccentric to the right causing moderate right-sided and mild left-sided foraminal narrowing. Small annular fissures are present in both the right and left foraminal region of the disc. 3. L5-S1: Mild concentric bulging disc with mild facet and ligamentum hypertrophy with mild bilateral foraminal narrowing left slightly greater than right. 4. No extruded herniated disc or bony canal stenosis. 5. There is a large cystic structure along the inferior aspect of the right kidney measuring approximately 10 by 9 cm suggesting a large right renal cyst with some debris posteriorly. This was demonstrated on the previous CT scan of 03/06/2020 Dictated by: Ajay Soler MD 08/06/2020 15:14 Ajay Soler MD in [facility] 08/06/2020 15:14
== END ==
PROVIDERS: PCP Emergency Medicine; Visit Provider Emergency Medicine
DX: M79.605 Pain in left leg (principal); M79.604 Pain in right leg; M54.5 Low back pain
CPT/HCPCS: 72148; 76376; 93923

== ENCOUNTER → 2020-08-10 17:15 | Outpatient (CLI) | payer OTHER, SELFPAY ==
[2020-08-10 18:28] LABS: Amphetamine/Metha Screen,Urine Negative ng/ml (<1000); Barbiturates Screen,Urine Negative ng/ml (<200)
[2020-08-10 18:29] LABS: Benzodiazepines Screen,Urine Negative ng/ml (<200)
[2020-08-10 18:30] LABS: Cannabinoid Screen,Urine Negative ng/ml (<50); Cocaine Screen,Urine Negative ng/ml (<300)
[2020-08-10 18:31] LABS: Methadone Screen,Urine Negative ng/ml (<300); Opiate Screen,Urine Negative ng/ml (<300)
[2020-08-10 18:32] LABS: Phencyclidine Screen,Urine Negative ng/ml (<25)
== END ==
PROVIDERS: Visit Provider Emergency Medicine
DX: Z79.899 Other long term (current) drug therapy (principal)
CPT/HCPCS: 80305

== ENCOUNTER → 2020-08-27 11:30 | Outpatient (CLI) | payer OTHER, SELFPAY ==
[2020-09-01 20:35] LABS: Chromogranin A 204.3
== END ==
PROVIDERS: Visit Provider Obstetrics & Gynecology Gynecologic Oncology
DX: R93.5 Abnormal findings on diagnostic imaging of other abdominal regions, including retroperitoneum (principal)
CPT/HCPCS: 36415; 83520

== ENCOUNTER → 2020-10-08 12:48 | Outpatient (CLI) | payer OTHER, SELFPAY ==
--- NOTE | 2020-10-08 12:48 | CA_ITS ---
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 Laterality: Bilateral Study Quality: Excellent Indications: right carotid bruit Risk Factors Hypertension: Smoking Hx-celiac stent Doppler Spectral Velocity Analysis ECA (R) 65.50/12.80 cm/s ECA (L) 87.10/11.20 cm/s dICA (R) 130.00/47.20 cm/s dICA (L) 132.80/50.60 cm/s Marin (R) 107.70/37.40 cm/s Marin (L) 117.50/40.40 cm/s pICA (R) 100.80/31.50 cm/s pICA (L) 90.50/28.30 cm/s dCCA (R) 84.50/23.90 cm/s dCCA (L) 72.60/13.50 cm/s pCCA (R) 115.60/18.30 cm/s pCCA (L) 110.70/18.70 cm/s Vert (R) 77.10/22.40 cm/s Vert (L) 62.90/14.80 cm/s ICA/CCA 1.50 ICA/CCA 1.80 Findings Duplex evaluation demonstrates stenosis of the right proximal internal carotid artery in the range of 20-49% with PSV <140 cm/sec, EDV <100 cm/sec, and IC/CC Ratio <4.0. Duplex evaluation demonstrates stenosis of the left proximal internal carotid artery in the range of 20-49% with PSV <140 cm/sec, EDV <100 cm/sec, and IC/CC Ratio <4.0. Duplex evaluation demonstrates antegrade flow of the bilateral Vertebral Arteries. Minimal plaque observed in the left caroitd bulb. Conclusion Duplex evaluation demonstrates stenosis of the right proximal internal carotid artery in the range of 20-49% with PSV <140 cm/sec, EDV <100 cm/sec, and IC/CC Ratio <4.0. Duplex evaluation demonstrates stenosis of the left proximal internal carotid artery in the range of 20-49% with PSV <140 cm/sec, EDV <100 cm/sec, and IC/CC Ratio <4.0. Duplex evaluation demonstrates antegrade flow of the bilateral Vertebral Arteries. Minimal plaque observed in the left caroitd bulb. Electronically signed by : Josemanuel Martinez MD 10/09/2020 08:45:10
== END ==
PROVIDERS: PCP Emergency Medicine; Visit Provider Physician Assistant
DX: R09.89 Other specified symptoms and signs involving the circulatory and respiratory systems (principal); I25.10 Atherosclerotic heart disease of native coronary artery without angina pectoris; I77.4 Celiac artery compression syndrome; Z72.0 Tobacco use
CPT/HCPCS: 93880

== ENCOUNTER → 2020-11-26 14:55 | Outpatient (CLI) | payer OTHER, SELFPAY ==
--- NOTE | 2020-11-26 15:04 | XR_ITS ---
PROCEDURE: XR CHEST PORTABLE CLINICAL HISTORY: COVID OUTPATIENT COMPARISON: CR Chest from 07/16/2018 CR CXR2V XR chest 2V from 07/25/[address] CHEST WO CON from 12/17/2019 CR XR CHEST 2V from 06/16/2020 FINDINGS: The cardiomediastinal silhouette and pulmonary vascularity are within normal limits. Atelectatic changes are present in the lower lung zones. Hyperdense nodules present in the left midlung and may be due to a granuloma. Nodular opacity right lower lobe and left lower lobe consistent with nipple densities No acute bony abnormalities. IMPRESSION: Bilateral lower lobe atelectatic change Dictated by: Ajay Soler MD 11/26/2020 15:39 Ajay Soler MD in [facility] 11/26/2020 15:39
[2020-11-26 16:01] LABS: Basophils # 0.1 K/mm3 (0-0.2); Basophils % 0.6 % (0.1-2.0); Eosinophils # 0.6 K/mm3 (0.0-0.4); Eosinophils % 4.8 % (0.1-12.0); Hematocrit 35.7 % (37.0-47.0); Hemoglobin 12.1 g/dL (12.2-16.2); Lymphocytes # 2.2 K/mm3 (0.7-4.5); Lymphocytes % 19.8 % (10-50); Mean Corpuscular HGB Conc 33.9 g/dL (31.8-35.4); Mean Corpuscular Volume 91.5 fl (81-99); Mean Platelet Volume 7.7 fl (7.4-10.4); Monocytes # 0.5 K/mm3 (0.1-1.0); Monocytes % 4.6 % (1.7-9.3); Neutrophils # 7.9 K/mm3 (1.8-7.8); Neutrophils % 70.1 % (37.0-80.0); Platelet Count 477 K/mm3 (142-424); Red Cell Distribution Width 13.7 % (11.5-17.5); White Blood Count 11.3 K/mm3 (4.8-10.8)
== END ==
PROVIDERS: PCP Physician Assistant; Visit Provider Physician Assistant
DX: Z20.822 Contact with and (suspected) exposure to COVID-19 (principal)
CPT/HCPCS: 36415; 71045; 85025; U0003

== ENCOUNTER → 2020-12-15 08:49 | Outpatient (CLI) | payer OTHER, SELFPAY ==
--- NOTE | 2020-12-15 09:12 | CT_ITS ---
PROCEDURE: CT ABDOMEN PELVIS W CON CLINICAL INDICATION: INCISIONAL HERNIA COMPARISON: CT CT ABDOMEN PELVIS WO/W CON from 03/06/2020 TECHNIQUE: IV Contrast: 17 mL Isovue 370. Patient was unable to tolerate contrast injection due to pain Oral Contrast None Axial images obtained with sagittal and coronal reformats. All CT scans at the facility use one or more dose reduction, viz: automated exposure control, ma/kV adjustment per patient size (including targeted exams where dose is matched to indication, i.e. head), or iterative reconstruction technique. FINDINGS: LOWER THORAX: Minimal atelectatic change right lung base posteriorly. Scarring is present in the lung bases as well. ABDOMEN & PELVIS: Prior cholecystectomy. No focal liver lesion. The spleen, adrenal glands, and pancreas have an unremarkable appearance. No renal or ureteral calculi. There is a small exophytic cyst projecting off the lateral aspect of the left kidney at 11 mm. Previously noted large cystic lesion in the right abdominal area is no longer apparent having been removed surgically. There is some minimal stranding of the fat in the right pericolic gutter with a small amount fluid in the right pericolic gutter inferiorly. There postsurgical changes of the abdominal wall in the supraumbilical region with minimal stranding of the fat both superficial and deep to the abdominal wall. No abnormal fluid collection apparent at this region. There is a small umbilical hernia containing fat with some mild stranding of the fat. Small amount of gas is noted in the abdominal wall on the left. There is also postsurgical changes in the infraumbilical region of the abdominal wall with minimal stranding of the fat. No evidence of abscess. There is a small area of discontinuity in the left periumbilical region image 57 series 3 which could represent a tiny incisional hernia or merely could be postsurgical change. There is a small umbilical hernia containing fat. No other hernias apparent. The umbilical hernia was present on the previous exam No intestinal obstruction or free air. No evidence of appendicitis or diverticulitis. There are post hysterectomy changes with a minimal amount of fluid in the pelvis. Colonic diverticulosis noted. There is an oval area fluid density noted in the right pelvic region and may be related to unopacified bowel. Multiple unopacified bowel loops in the abdomen or pelvis which could obscure or mimic pathology. If symptoms persist, consider repeat exam with IV and oral contrast.. IMPRESSION: 1. Postsurgical changes of the abdominal wall with some minimal stranding of the fat along the recent incision in both the supra and infra umbilical area and periumbilical area. No abscess apparent. There is a small area of discontinuity in the left periumbilical region image 57 series 3 which could represent a tiny incisional hernia or merely could be postsurgical change. There is a small umbilical hernia containing fat. 2. Interval removal of the cystic mass in the right abdominal area. 3. Multiple unopacified bowel loops in the abdomen or pelvis which could obscure or mimic pathology. If symptoms persist, consider repeat exam with IV and oral contrast. Dictated by: Ajay Soler MD 12/16/2020 06:50 Ajay Soler MD in [facility] 12/16/2020 06:50
== END ==
PROVIDERS: PCP Physician Assistant; Visit Provider Obstetrics & Gynecology Gynecologic Oncology
DX: K43.2 Incisional hernia without obstruction or gangrene (principal)
CPT/HCPCS: 74177; Q9967

== ENCOUNTER → 2021-01-05 18:56 | Outpatient (CLI) | payer OTHER, SELFPAY ==
[2021-01-05 21:25] LABS: Amphetamine/Metha Screen,Urine Negative ng/ml (<1000)
[2021-01-05 21:26] LABS: Benzodiazepines Screen,Urine Negative ng/ml (<200)
[2021-01-05 21:27] LABS: Cannabinoid Screen,Urine Negative ng/ml (<50)
[2021-01-05 21:30] LABS: Cocaine Screen,Urine Negative ng/ml (<300); Methadone Screen,Urine Negative ng/ml (<300)
[2021-01-05 21:31] LABS: Opiate Screen,Urine Negative ng/ml (<300)
[2021-01-05 21:32] LABS: Phencyclidine Screen,Urine Negative ng/ml (<25)
[2021-01-05 21:34] LABS: Barbiturates Screen,Urine Negative ng/ml (<200)
== END ==
PROVIDERS: Visit Provider Emergency Medicine
DX: Z79.899 Other long term (current) drug therapy (principal)
CPT/HCPCS: 80305

== ENCOUNTER → 2021-01-13 15:24 | Outpatient (CLI) | payer OTHER, SELFPAY ==
[2021-01-13 16:12] LABS: Basophils # 0.1 K/mm3 (0-0.2); Basophils % 1.5 % (0.1-2.0); Eosinophils # 0.5 K/mm3 (0.0-0.4); Eosinophils % 5.3 % (0.1-12.0); Hematocrit 38.8 % (37.0-47.0); Hemoglobin 12.3 g/dL (12.2-16.2); Lymphocytes # 2.7 K/mm3 (0.7-4.5); Mean Corpuscular HGB Conc 31.8 g/dL (31.8-35.4); Mean Corpuscular Hemoglobin 30.8 pg (27.0-31.2); Mean Corpuscular Volume 97.1 fl (81-99); Mean Platelet Volume 8.3 fl (7.4-10.4); Monocytes # 0.4 K/mm3 (0.1-1.0); Monocytes % 4.4 % (1.7-9.3); Neutrophils % 57.8 % (37.0-80.0); Platelet Count 390 K/mm3 (142-424); Red Cell Distribution Width 13.1 % (11.5-17.5); White Blood Count 8.6 K/mm3 (4.8-10.8)
[2021-01-13 17:16] LABS: Chloride 109 mmol/L (98-107); Sodium 144 mmol/L (136-145)
[2021-01-13 17:17] LABS: Potassium 4.2 mmoL/L (3.5-5.1)
[2021-01-13 17:19] LABS: Blood Urea Nitrogen 6 mg/dl (7-17); Estimated Glomerular Filt Rate 88 ml/min (>60); GFR (African American) 107 ML/MIN (>60)
[2021-01-13 17:20] LABS: Anion Gap 13.2 mEq/L (5-15); Carbon Dioxide 26 mmol/L (22.0-30.0); Glucose 116 mg/dl (74-100)
== END ==
PROVIDERS: Visit Provider Urology
DX: Z01.812 Encounter for preprocedural laboratory examination (principal); Z11.52 Encounter for screening for COVID-19; I73.9 Peripheral vascular disease, unspecified; I77.4 Celiac artery compression syndrome; R68.89 Other general symptoms and signs; Z72.0 Tobacco use
CPT/HCPCS: 36415; 80048; 85025; C9803; U0003; U0005

== ENCOUNTER 2021-01-14 08:51 | Day surgery (SDC) | payer OTHER, SELFPAY ==
[2021-01-14] VITALS (9 sets, daily range): BP systolic 149–193; BP diastolic 79–93; PULSE 68–81; RESP 17–20; TEMP 36.6; O2SAT 90–99; BMI 21.8
--- NOTE | 2021-01-14 07:15 | IR_ITS ---
APPROVED REPORT Patient Location: Outpatient PROCEDURES Left femoral arterial access Catheter placed in the abdominal aorta Abdominal aortography Bilateral iliofemoral runoff Right femoral arterial access Right retrograde femoral angiogram Catheter placement in the right superficial femoral artery Right superficial femoral artery antegrade angiogram Angioplasty followed by bare-metal stent deployment to the proximal common femoral artery Angioplasty followed by bare-metal stent deployment to the right external iliac artery INDICATION [place] claudication class III, Peripheral artery disease, Abnormal THOMAS, Occlusion of the proximal portion of the right common femoral artery extending into the distal right external iliac artery Informed consent was obtained prior to the procedure. COMPLICATIONS None Estimated Blood Loss: less than 10ml TECHNIQUE 1% lidocaine used to anesthetize the left femoral groin. The left femoral artery was accessed via the Seldinger technique. Pigtail catheter was placed in abdominal aorta and abdominal aortography was performed. The catheter was then repositioned and bilateral iliofemoral runoff was performed. Following this 1% lidocaine was used anesthetize right groin and the right femoral artery was accessed via the Salinger technique. Initially the sheath was placed in a small collateral with extravasation in the soft tissue with no evidence of retroperitoneal bleed. The sheath was pulled back and pressure was held with no hematoma or other problems. The femoral artery was then cannulated and an advantage wire was advanced into the common femoral artery. Using the 5 Chadian sheath a loop was developed and the wire and the sheath was used to push through the 100% occlusion of the proximal femoral artery and distal right common iliac artery. The wire was passed into the aorta true lumen. Following this a rim catheter was then placed in the left femoral groin and used to cannulate the right common iliac artery where a separate long advantage wire was then used to floss down the retrograde wire. The wire was advanced through the occlusion into the common femoral artery and into the superficial femoral artery true lumen. A trailblazer catheter was then advanced into the right superficial femoral artery and right superficial femoral artery selective angiography was performed at this point therapeutic heparin was administered giving a therapeutic ACT. The trailblazer was exchanged for a long advantage wire. A destination 6 Chadian sheath was then advanced in the left common femoral artery into the right common femoral artery. Angiography was performed. A 5 mm x 60 mm balloon was then deployed at 10 juli to open the chronic occlusion of the right common femoral artery and right external iliac artery. Following this a 7 mm x 80 mm self-expanding EV 3 stent was deployed at the very proximal tip of the right common femoral artery extending into the distal and midportion of the external iliac artery. A 6 mm x 40 mm balloon was then deployed at 10 juli. An additional 7 mm x 57 mm balloon mounted stent was then placed proximal to the stent covering the entire proximal portion of the right external iliac artery. The stent was deployed at 10 juli reducing the stenosis to 0%. An additional 6 mm x 20 mm balloon was then placed in the distal right external iliac artery and used to post dilate at 1014 and then 18 juli up and down the external iliac artery. Excellent angiographic results were obtained with repeat angiography demonstrated wide patency of the profunda femoris femoral artery and proximal superficial femoral artery in the right leg. At the end of the procedure the apparatus was removed the groin
--- NOTE | 2021-01-14 11:42 | CT_ITS ---
PROCEDURE: CT ABDOMEN PELVIS WO CON CLINICAL INDICATION: retro bleed Possible retroperitoneal bleed, recent stenting COMPARISON: CT CT ABDOMEN PELVIS W CON from 12/15/2020 XA CL BOLUS OLIVER UNILAT AORTA from 01/14/2021 TECHNIQUE: Axial images obtained with sagittal and coronal reformats. All CT scans at the facility use one or more dose reduction, viz: automated exposure control, ma/kV adjustment per patient size (including targeted exams where dose is matched to indication, i.e. head), or iterative reconstruction technique. FINDINGS: LOWER THORAX: Atelectatic changes are present in the lung bases. Mild consolidation/volume loss within the right middle lobe and lingula. ABDOMEN & PELVIS: Prior cholecystectomy. The liver, spleen, adrenal glands, and pancreas has an unremarkable appearance. No hydronephrosis. There is no evidence of acute retroperitoneal bleed. There is an area of extreme hyperdensity which extends from the right inguinal region cephalad to the inferior aspect of the cecum and extends medially to the stented right external iliac artery. This may be related to contrast extravasation from the recent procedure. Please correlate with clinical parameters. One would not expect extravasated contrast from the vessel to be this hyperdense without surrounding blood. There is a small amount of gas density also in this region suggesting postprocedure changes. Minimal amount of hyperdense material suspected to be contrast noted in the subcutaneous tissues in the right inguinal area. Minimal amount of fluid is noted in the pelvis. There has been a prior hysterectomy. No intestinal obstruction or free air apparent. The appendix has an unremarkable appearance. The bowel gas pattern is nonspecific with some fluid-filled loops of small bowel and a few air-fluid levels. There is mild haziness of the right perinephric fat and in the right pericolic gutter. There is stranding of the fat in the ventral abdominal region inferior to the level of the umbilicus. Has the patient had recent abdominal pelvic surgery? There is a small umbilical hernia containing fat. IMPRESSION: 1. No evidence of acute retroperitoneal hemorrhage. 2. Hyperdense area in the right inguinal region extending to the inferior right pericolic gutter with a small amount of air in this area suspected to be extravasated contrast from recent procedure. Please correlate with that procedure. Dictated by: Ajay Soler MD 01/14/2021 12:12 Ajay Soler MD in [facility] 01/14/2021 12:12
[2021-01-14 14:40] LABS: CATHL Activated Clotting Time > 400 SEC (74-125)
== END 2021-01-14 15:35 | disposition home or self-care (01) ==
LOC: CATHLAB 08:53
PROVIDERS: PCP Emergency Medicine; Visit Provider Internal Medicine
DX: I70.211 Atherosclerosis of native arteries of extremities with intermittent claudication, right leg (principal); I77.1 Stricture of artery; F17.210 Nicotine dependence, cigarettes, uncomplicated; Z79.899 Other long term (current) drug therapy; I70.92 Chronic total occlusion of artery of the extremities; I77.4 Celiac artery compression syndrome
CPT/HCPCS: 37221; 37226; 74176; 75716; 85347; 99152; 99153; C1725; C1760; C1766; C1769; C1876; C1894; J1644; Q9967

== ENCOUNTER → 2021-01-19 11:50 | Outpatient (CLI) | payer OTHER, SELFPAY ==
--- NOTE | 2021-01-19 11:51 | CA_ITS ---
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 She states her left groin has hurt since the cath. The entire left leg hurts per patient. Risk Factors History of Lower Extremity PAD: Patient had peripheral stent placed in right iliac artery 01/14/21. Findings Groin: Left Negative Findings No evidence of pseudoaneurysm, hematoma, or AV fistula of the left groin. Conclusion No evidence of pseudoaneurysm, hematoma, or AV fistula of the left groin. Electronically signed by : Ajay Soler MD 01/19/2021 15:46:00
== END ==
PROVIDERS: PCP Emergency Medicine; Visit Provider Emergency Medicine
DX: G89.18 Other acute postprocedural pain (principal)
CPT/HCPCS: 93926

== ENCOUNTER → 2021-03-02 08:22 | Outpatient (POV) | payer OTHER, SELFPAY ==
[2021-03-02 08:40] VITALS: BP 152/79; PULSE 71; RESP 18; O2SAT 99; BMI 22.1
--- NOTE | 2021-03-02 09:45 | [facility].PMCON ---
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 She also has soreness to her neck area. She has undergone an MRI which notes the patient to have a large cystic structure to the inferior aspect of the right kidney measuring approximately 10 x 9 cm suggesting a large right renal cyst with debris. Patient says that she has not been worked up for the renal cyst. She has been advised to discuss this with her primary care provider so that she can acquire a referral if warranted. The patient says this was also noted on 03/06/2020 CT scan. She does have disc bulging along with ligamentum hypertrophy and facet hypertrophy at the L4-L5 and L5-S1 area. We discussed injective therapy, however, the patient does not want to proceed with any type of injections. She has been advised by pulmonary not to proceed with injective therapy with steroids. We did discuss a low-dose of tramadol. She would like to try the lowest dose possible. The patient is on Xarelto and cannot take anti-inflammatories. We will order the patient tramadol 50 mg 1 tablet p.o. daily to see if this helps with the pain. She will discuss referral with Dr. Herrera for the large right renal cyst. We will see the patient back in 2 weeks to see if tramadol is helping. She does not want to go any higher on the dose until she determines if she is going to have any type of side effects to the medication. Risks and benefits of the medication have been explained in detail to the patient. If side effects do present with the medication, patient has been advised to stop the medication immediately and call the clinic. The patient has been advised to consult with his/her primary care provider and pharmacist regarding drug-drug interaction of medications currently prescribed. Patient has been instructed to contact the clinic with any concerns before the next appointment. Dr. Crouch has reviewed this note and agrees with this plan of care. This note was dictated using voice recognition software and make contain errors or omissions. HPI - Data of Consult Patient: new to practice Consult date: 03/02/21 Requesting Physician: Misa Matos APRN - Consult Narrative Reason for consult: Right low back pain History of present illness: Ms. Hirsch is a 50 year old female who presents today for consultation for right low back pain. 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 She says that she also has neck soreness. Patient's pain is worse to the low back, however. She says the pain does radiate into bilateral hips as well as her right lower extremity which she has heaviness and weakness. She reports the heaviness and weakness to her right leg to have started shortly after undergoing stenting by Dr. Coelho. She has stenting to right iliac. She denies any numbness or tingling. She says she does have pain to the posterior area of bilateral legs. She denies any surgical history, fractures, or trauma. She does report a history of severe pneumonia with collapsed lung and has been told to not undergo corticosteroid injections. She is also septic from pneumonia. This occurred this past year. She also reports that her stenting occurred this year. The patient did have a mass removed from her right abdominal area in October 2020. She says that she had a mass in her bowel requiring removal along with a complete h
== END ==
PROVIDERS: Visit Provider Clinical Nurse Specialist Family Health
DX: M47.896 Other spondylosis, lumbar region (principal); M54.16 Radiculopathy, lumbar region; N28.1 Cyst of kidney, acquired
CPT/HCPCS: 99202; G0463

== ENCOUNTER → 2021-03-09 09:18 | Outpatient (CLI) | payer OTHER, SELFPAY ==
--- NOTE | 2021-03-09 09:18 | US_ITS ---
PROCEDURE: US KIDNEY CLINICAL INDICATION: COMPARISON: CT CT ABDOMEN PELVIS WO/W CON from 03/06/[address] ABDOMEN PELVIS WO CON from 01/14/2021 FINDINGS: The right kidney is 11 x 4 x 5 cm. No cyst or solid lesion apparent. No hydronephrosis. The left kidney is 11 x 5 x 5 cm. Small exophytic cyst is present along the mid aspect of the left kidney at 11 mm. IMPRESSION: Small left renal cyst otherwise negative bilateral renal ultrasound Dictated by: Ajay Soler MD 03/10/2021 09:42 Ajay Soler MD in [facility] 03/10/2021 09:42
== END ==
PROVIDERS: PCP Emergency Medicine; Visit Provider Emergency Medicine
DX: N28.1 Cyst of kidney, acquired (principal)
CPT/HCPCS: 76770

== ENCOUNTER → 2021-03-16 13:41 | Outpatient (POV) | payer OTHER, SELFPAY ==
[2021-03-16 13:55] VITALS: BP 136/70; PULSE 70; RESP 18; O2SAT 98; BMI 22.1
--- NOTE | 2021-03-16 14:39 | HMH.PAINSOAP ---
[facility] Pain Management SOAP Note Subjective:: Patient is a 50-year-old white female who presents today for follow-up. The patient was referred to us for chronic right low back pain with radiation into right leg and bilateral hips. She did undergo an MRI which noted the patient to have a large cystic structure near the right kidney with renal cyst and debris. Patient says that she did undergo thorough work-up which was unremarkable. She does have imaging that shows her to have severe ligamentum hypertrophy/facet hypertrophy at the L4-L5 L5-S1 area. Patient deferred on injective therapy and also has deferred on any further physical therapy. was previously prescribed oral medications by Dr. Herrera. She has tried [place], oxycodone, Percocet, and gabapentin. She is currently on gabapentin 10 mg 1 tablet p.o. twice daily. Patient did try tramadol at last visit low dose of 50 mg, but was unable to tolerate the medication due to dizziness and nausea. She is unable to take anti-inflammatories due to renal insufficiency. At this time we are limited with options for the patient, as she does not want to do injective therapy. We also discussed possible implanted devices such as spinal cord stimulation. She is unsure she wants to proceed with this type of treatment. She has also deferred on seeing a neurosurgeon. She does rate her pain an 8 out of 10. Review of Systems General: No recent weight changes, no fever, no sleep disturbances Respiratory: No cough, no shortness of air, no recurring pulmonary infections Cardiovascular/peripheral vascular: No chest pain, no palpitations, no edema, no shortness of breath Gastrointestinal: No new onset incontinence, normal bowel movements reported Genitourinary: No new onset incontinence Musculoskeletal: []low back pain with radiation into right lower extremity with heaviness and weakness right lower extremity Psychiatric: [Normal mood/affect] Neurological: [Denies weakness in extremities], [denies balance issues] Objective:: Physical exam General: Alert and oriented x3, no acute distress, pleasant and cooperative Lungs: Respirations even and unlabored, symmetrical chest expansion Eyes: PERRL Musculoskeletal: Flexion and extension of lumbar [spine] somewhat guarded secondary to pain, [antalgic gait noted] Neurological: Speech clear, no gross sensory deficit Assessment:: Degenerative disc disease lumbar spine with lumbar radiculopathy symptoms, spinal stenosis with neurogenic claudication symptoms, facet arthropathy Plan:: Patient has deferred on all options available in the clinic at this time. She was given educational information regarding spinal cord stimulation. This may be an option for her in the future if she decides to proceed with any further treatment. She is deferred on injections, further physical therapy, and oral medications due to inability to tolerate the medicines. She is unable to take anti-inflammatories due to anticoagulation therapy and due to renal insufficiency. Patient has been advised she can contact the clinic if she does decide to proceed with possible implanted devices in the future. Patient has been instructed to contact the clinic with any concerns before the next appointment. Dr. Crouch has reviewed this note and agrees with this plan of care. This note was dictated using voice recognition software and make contain errors or omissions. [facility] History I have reviewed the patient's past medical history: Yes Medical History: Reports:: Chronic Obstructive Pulmonary Disease (COPD), Peripheral Artery Disease Denies:: Cancer, Diabetes Mellitus Type 1, Diabetes Mellitus Type 2, Internal Pacemaker, MRSA, Seizures *Have you ever received a pneumonia vaccine?: Yes *Have you received a flu vaccine this season?: No Other Medical History: Denies: Blood Transfusion Reaction Other Surgeries: Yes: Angiogram, Cardiac Catheterization, Cholecystectomy, Coronary Stent, Diagnostic L
== END ==
PROVIDERS: Visit Provider Clinical Nurse Specialist Family Health
DX: M51.16 Intervertebral disc disorders with radiculopathy, lumbar region (principal); M48.062 Spinal stenosis, lumbar region with neurogenic claudication; M54.06 Panniculitis affecting regions of neck and back, lumbar region
CPT/HCPCS: 99212; G0463

== ENCOUNTER → 2021-05-14 14:49 | Outpatient (CLI) | payer OTHER, SELFPAY ==
[2021-05-14 16:29] LABS: Amphetamine/Metha Screen,Urine Negative ng/ml (<1000); Barbiturates Screen,Urine Negative ng/ml (<200)
[2021-05-14 16:30] LABS: Benzodiazepines Screen,Urine Negative ng/ml (<200); Cannabinoid Screen,Urine Negative ng/ml (<50)
[2021-05-14 16:31] LABS: Cocaine Screen,Urine Negative ng/ml (<300)
[2021-05-14 16:32] LABS: Methadone Screen,Urine Negative ng/ml (<300); Opiate Screen,Urine Negative ng/ml (<300)
[2021-05-14 16:33] LABS: Phencyclidine Screen,Urine Negative ng/ml (<25)
== END ==
PROVIDERS: Visit Provider Emergency Medicine
DX: M47.816 Spondylosis without myelopathy or radiculopathy, lumbar region (principal)
CPT/HCPCS: 80305

== ENCOUNTER → 2021-06-21 16:15 | Outpatient (CLI) | payer OTHER, SELFPAY ==
--- NOTE | 2021-06-21 16:19 | XR_ITS ---
PROCEDURE INFORMATION: Exam: XR Cervical Spine Exam date and time: 06/21/2021 4:19 PM Age: 51 years old Clinical indication: Patient HX: Lt side neck pain and stiffness TECHNIQUE: Imaging protocol: XR of the cervical spine. Views: 4 or 5 views. COMPARISON: CR XR CHEST 2V 06/16/2020 12:56 PM FINDINGS: Bones/joints: Normal. No acute fracture. Normal alignment. Soft tissues: Unremarkable. IMPRESSION: No acute findings.
== END ==
PROVIDERS: PCP Emergency Medicine; Visit Provider Emergency Medicine
DX: M54.2 Cervicalgia (principal)
CPT/HCPCS: 72050

== ENCOUNTER 2021-06-22 03:01 | Emergency (ER) | payer OTHER, SELFPAY ==
[2021-06-22 03:02] VITALS: BP 156/85; PULSE 78; RESP 16; TEMP 36.5; O2SAT 98; BMI 21.6
--- NOTE | 2021-06-22 03:12 | CT_ITS ---
PROCEDURE INFORMATION: Exam: CT Cervical Spine Without Contrast Exam date and time: 06/22/2021 3:12 AM Age: 51 years old Clinical indication: Neck pain TECHNIQUE: Imaging protocol: Computed tomography images of the cervical spine without contrast. Radiation optimization: All CT scans at this facility use at least one of these dose optimization techniques: automated exposure control; mA and/or kV adjustment per patient size (includes targeted exams where dose is matched to clinical indication); or iterative reconstruction. COMPARISON: CR XR CERVICAL SPINE 5V 06/21/2021 4:23 PM FINDINGS: Bones/joints: Mild diffuse cervical spondylosis is noted. Hypertrophic changes of the facets are seen bilaterally. Discs/Spinal canal/Neural foramina: Degenerative changes are noted at C1-C2. Some small posterior osteophytes are present. Moderate neural foraminal narrowing is noted on the left at C3-C4. Lungs: Lung apices are normal. Soft tissues: Unremarkable. IMPRESSION: Mild degenerative changes as described. Consider MRI for further evaluation as clinically.
--- NOTE | 2021-06-22 03:12 | CT_ITS ---
PROCEDURE INFORMATION: Exam: CT Thoracic Spine Without Contrast Exam date and time: 06/22/2021 3:12 AM Age: 51 years old Clinical indication: Pain in thoracic spine TECHNIQUE: Imaging protocol: Computed tomography images of the thoracic spine without contrast. Radiation optimization: All CT scans at this facility use at least one of these dose optimization techniques: automated exposure control; mA and/or kV adjustment per patient size (includes targeted exams where dose is matched to clinical indication); or iterative reconstruction. COMPARISON: CT CERVICAL SPINE WO CON 06/22/2021 3:25 AM FINDINGS: Vertebrae: No acute fracture. Normal alignment. Discs/Spinal canal/Neural foramina: No significant disc protrusion. No severe spinal canal stenosis. No significant neural foraminal narrowing. Soft tissues: Unremarkable. IMPRESSION: Unremarkable CT Spine.
--- NOTE | 2021-06-22 03:29 | PC.NURSE ---
PT TO CT VIA AMBULATION.
--- NOTE | 2021-06-22 04:18 | HMH.EDGENADL ---
ED Disposition Clinical Impression: Cervical pain (neck) Disposition: Home, Self-Care Condition on Discharge: Good Instructions: DI for Neck Pain Additional Instructions: see pcp for follow up Prescriptions: methocarbamoL [Methocarbamol 500mg Tablet] 500 mg PO BID 7 Days #14 tab Transmission Status: Pending to [facility] Referrals: Mario Herrera MD [Primary Care Provider] - - Critical Care Critical Care Time: No Attestation: On 06/22/21, the high probability of a clinically significant, sudden or life threatening deterioration of the following system(s) required my full and direct attention, intervention and personal management. The time I documented below is in addition to time spent performing reported procedures but includes the following listed in this critical care notation. Medical Decision Making - Medical Records Medical records reviewed: Yes: I reviewed the patient's medical records. - Shabhaz Inquiry Pt receiving controlled substance: No Vital Signs: 06/22/21 03:02 Temperature 97.7 F Temperature Source Oral Pulse Rate [Right Radial] 78 Respiratory Rate 16 Blood Pressure [Right Arm] 156/85 H Blood Pressure Mean [Right Arm] 108 Blood Pressure Source [Right Arm] Automatic Cuff Blood Pressure Position [Right Arm] Sitting 02 Sat by Pulse Oximetry 98 Oxygen Delivery Method Room Air - Lab Data Lab results reviewed: Yes: I reviewed the patient's lab results. Orders (Tests/Meds): ED MEDICATIONS Generic Name Dose Route Start Last Admin Trade Name Freq PRN Reason Stop Dose Admin Methocarbamol 500 mg 06/22/21 09:00 06/22/21 03:19 Methocarbamol 500mg Tablet PO 07/22/21 08:59 500 mg BID KWASI Administration Discontinued Medications Generic Name Dose Route Start Last Admin Trade Name Freq PRN Reason Stop Dose Admin Acetaminophen 1,000 mg 06/22/21 03:12 06/22/21 03:18 Acetaminophen 500mg Tab PO 06/22/21 03:13 1,000 mg ONCE ONE Administration Lidocaine 1 each 06/22/21 03:12 06/22/21 03:22 Lidocaine 5% Transdermal Patch TP 06/22/21 03:13 1 each ONCE ONE Administration Prednisone 20 mg 06/22/21 03:16 06/22/21 03:19 Prednisone 20mg Tab PO 06/22/21 03:17 20 mg ONCE ONE Administration - CT Data CT Scan: C-Spine, T-Spine Time Received: 04:[address] Reviewed: Yes: I have viewed the radiologist's interpretation Preliminary Findings: No Fracture Seen Medical Decision Narrative: no def changes on ct - no focal changes General Adult HPI - General Chief complaint: PAIN Stated complaint: neck and left shoulder pain Time Seen by Provider: 06/22/21 03:30 Mode of Arrival: Ambulatory Source of Information: Patient, Medical Record Limitations: No Limitations Description of Symptoms (Recalled from ER Triage Doc. by RN): Pt c/o left sided neck and shoulder pain since . Pt was seen by PCP on 06/21 and had negative xrays. Pt says she just cant take it anymore. She denies any injury. Denies cp, abd pain, fevers, cough, N/V/D, dizziness. - History of Present Illness HPI narrative: atraumatic neck pain with no rash or acute trauma Onset (ago): day(s) Location: neck, back Severity: moderate Consistency: intermittent Associated symptoms: denies other symptoms Treatments prior to arrival: none - Related Data Home Medications Medication Instructions Recorded Confirmed Atorvastatin Calcium [Lipitor 40mg 40 mg PO HS 07/30/20 06/15/21 Tab] famotidine 20 mg tablet 20 mg PO DAILY 09/28/20 06/15/21 Aspirin [Low Dose Aspirin EC] See Rx Instructions .ROUTE .COMPLEX 01/14/21 06/15/21 Previous Rx's Medication Instructions Recorded alprazolam 0.25 mg tablet 0.25 mg PO BID #60 tab 04/12/21 clopidogrel 75 mg tablet 75 mg PO DAILY #30 tab 05/12/21 diclofenac sodium 1 % topical gel 2 g TOPICAL QID #100 g 05/14/21 gabapentin 100 mg capsule See Rx Instructions .ROUTE 05/14/21 .COMPLEX #120 cap lidocaine 5 % t
[2021-06-22 04:30] VITALS: BP 133/73; PULSE 63; RESP 16; TEMP 36.6; O2SAT 97
== END 2021-06-22 04:34 | disposition home or self-care (01) ==
PROVIDERS: Emergency Provider Emergency Medicine; PCP Emergency Medicine
DX: M54.2 Cervicalgia (principal); M25.512 Pain in left shoulder; J44.9 Chronic obstructive pulmonary disease, unspecified; F17.210 Nicotine dependence, cigarettes, uncomplicated
CPT/HCPCS: 72125; 72128; 99284

== ENCOUNTER 2021-06-23 12:54 | Outpatient (RCR) | payer OTHER, SELFPAY ==
--- NOTE | 2021-06-23 14:33 | HMH.PTOPEV ---
PT Outpatient Evaluation Rehab PT Outpatient Evaluation Start: 06/23/21 12:59 Freq: Status: Active Protocol: Document 06/23/21 12:59 JOSÉ LUIS (Rec: 06/23/21 14:33 PDESEROUX [id number]) Electronically Signed By Chaparro Marquez, PT 06/23/21 12:59 Outpatient Therapy Subjective History Subjective History Pt. is a 51 year old female who presents to [facility] Outpatient [facility] Therapy Services for the initial evaluation this date(06/23/21) w/ c/o acute on chronic and constant L-sided cervical/ shldr. P!, weakness, and ROM deficits of insidious onset since last (06/17/21). However, pt. reports initial onset of symptoms were 2 years ago, but were intermittent and managed w/ Tylenol. Pt. reports symptoms worsened last (06/17/21) insidiously, only thing pt. reported she could think of was looking down at her computer more often at work. 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 Pt. reports symptoms worsen w/ looking down at her computer and phone, but also lifting weighted objects and pushing a wheelchair. Pt. reports having some symptom relief w/ ice and prescribed medication. Pt. describes symptoms as a deep ache that is constant in the L-sided cervical spine and shldr., but will intermittently radiate to her elbow. Pt. denies symptoms into the RUE, denies any diplopia/drop attacks/ dizziness/blurred vision since last (06/17/21). Recent diagnostic imaging positive for osteoarthritis per pt. report. Pt. denies having injections for current
== END 2021-07-19 11:35 | disposition home or self-care (01) ==
LOC: PT.CARL 12:54
PROVIDERS: PCP Emergency Medicine; Visit Provider Emergency Medicine
DX: M54.2 Cervicalgia (principal)
CPT/HCPCS: 97010; 97014; 97110; 97140; 97163; G0283

== ENCOUNTER → 2021-07-12 14:14 | Outpatient (CLI) | payer OTHER, SELFPAY ==
[2021-07-09 17:29] LABS: Benzodiazepines Screen,Urine Negative ng/ml (<200)
[2021-07-09 17:30] LABS: Amphetamine/Metha Screen,Urine Negative ng/ml (<1000)
[2021-07-09 17:31] LABS: Barbiturates Screen,Urine Negative ng/ml (<200); Cannabinoid Screen,Urine Negative ng/ml (<50)
[2021-07-09 17:32] LABS: Cocaine Screen,Urine Negative ng/ml (<300)
[2021-07-09 17:33] LABS: Opiate Screen,Urine Negative ng/ml (<300)
[2021-07-09 17:34] LABS: Phencyclidine Screen,Urine Negative ng/ml (<25)
[2021-07-09 17:36] LABS: Methadone Screen,Urine Negative ng/ml (<300)
== END ==
PROVIDERS: Visit Provider Emergency Medicine
DX: Z79.899 Other long term (current) drug therapy (principal)
CPT/HCPCS: 80305

== ENCOUNTER → 2021-09-25 09:21 | Outpatient (CLI) | payer OTHER, SELFPAY ==
--- NOTE | 2021-09-25 09:21 | MR_ITS ---
FINAL REPORT CLINICAL HISTORY: back pain. chronic. nki. numbness/ tingling and pain that radiates down bilateral extremities. FINDINGS: Multiplanar MR imaging of the lumbar spine was performed without contrast. On the sagittal T2-weighted images, disc degeneration is seen at several levels. The vertebral alignment is normal. Mild endplate changes are noted at several levels. There is no evidence of fracture. No bony mass is identified. The conus has an unremarkable appearance. No significant canal stenosis is identified. L1-2: An annular bulge is present. There is no significant canal stenosis or neural foraminal narrowing. L2-3: An annular bulge is present. There is no significant canal stenosis or neural foraminal narrowing. L3-4: An annular bulge is present. There is mild bilateral neural foraminal narrowing. L4-5: An annular bulge is present. A right posterolateral annular tear is present. There is moderate to severe bilateral neural foraminal narrowing. L5-S1: An annular bulge is present. A small broad-based left paracentral disc protrusion is present which contacts the left S1 nerve root. There is mild right and moderate left neural foraminal narrowing. IMPRESSION: Multilevel degenerative disc disease and spondylosis as described. Broad-based left paracentral L5-S1 disc protrusion contacting the left S1 nerve root. Authenticated and ERN
== END ==
PROVIDERS: PCP Emergency Medicine; Visit Provider Emergency Medicine
DX: M54.50 Low back pain, unspecified (principal)
CPT/HCPCS: 72148; 76376

== ENCOUNTER → 2021-10-11 16:34 | Outpatient (CLI) | payer OTHER, SELFPAY ==
[2021-10-11 15:15] LABS: Amphetamine/Metha Screen,Urine Negative ng/ml (<1000); Barbiturates Screen,Urine Negative ng/ml (<200)
[2021-10-11 15:16] LABS: Benzodiazepines Screen,Urine Negative ng/ml (<200)
[2021-10-11 15:17] LABS: Cannabinoid Screen,Urine Negative ng/ml (<50); Cocaine Screen,Urine Negative ng/ml (<300)
[2021-10-11 15:18] LABS: Methadone Screen,Urine Negative ng/ml (<300)
[2021-10-11 15:19] LABS: Opiate Screen,Urine Negative ng/ml (<300); Phencyclidine Screen,Urine Negative ng/ml (<25)
== END ==
PROVIDERS: Visit Provider Emergency Medicine
DX: Z79.899 Other long term (current) drug therapy (principal)
CPT/HCPCS: 80305

== ENCOUNTER → 2021-10-30 09:12 | Outpatient (CLI) | payer OTHER, SELFPAY ==
--- NOTE | 2021-10-30 09:13 | ECG_ITS ---
APPROVED REPORT Exam: Resting ECG HR:58 bpm ECG Measurements Heart Rate 58 AXES ME 182 P 68 QRSd 96 QRS 50 QT 410 T 69 QTc 407 Conclusion SINUS BRADYCARDIA BORDERLINE ECG UNCONFIRMED REPORT Electronically signed by : Jt Carlos MD 11/01/2021 14:06:02
[2021-10-30 09:20] LABS: MANUAL DIFFERENTIAL MANUAL DIFFERENTIAL (MANUAL DIFF)
[2021-10-30 09:49] LABS: Basophils # 0.1 K/mm3 (0-0.2); Basophils % 0.6 % (0.1-2.0); Eosinophils # 0.1 K/mm3 (0.0-0.4); Eosinophils % 1.4 % (0.1-12.0); Hemoglobin 13.3 g/dL (12.2-16.2); Lymphocytes # 2.5 K/mm3 (0.7-4.5); Lymphocytes % 24.9 % (10-50); Mean Corpuscular HGB Conc 32.5 g/dL (31.8-35.4); Mean Corpuscular Hemoglobin 30.7 pg (27.0-31.2); Mean Corpuscular Volume 94.5 fl (81-99); Mean Platelet Volume 7.1 fl (7.4-10.4); Monocytes # 0.6 K/mm3 (0.1-1.0); Monocytes % 5.9 % (1.7-9.3); Neutrophils # 6.7 K/mm3 (1.8-7.8); Neutrophils % 67.2 % (37.0-80.0); Platelet Count 283 K/mm3 (142-424); Red Blood Count 4.34 M/mm3 (4.20-5.40); Red Cell Distribution Width 12.6 % (11.5-17.5)
[2021-10-30 10:15] LABS: Alanine Aminotransferase 8 U/L (12-78); Albumin Level 3.8 g/dl (3.5-5.0); Albumin/Globulin Ratio 1.7 (1.1-1.8); Alkaline Phosphatase 73 U/L (38-126); Anion Gap 9.9 mEq/L (5-15); Aspartate Amino Transferase 16 U/L (14-36); Blood Urea Nitrogen 7 mg/dl (7-17); Calcium 9.2 mg/dl (8.4-10.2); Carbon Dioxide 28 mmol/L (22.0-30.0); Chloride 107 mmol/L (98-107); Estimated Glomerular Filt Rate 88 ml/min (>60); GFR (African American) 106 ML/MIN (>60); Globulin 2.3 g/dL (1.3-3.2); Glucose 123 mg/dl (74-100); Potassium 3.9 mmoL/L (3.5-5.1); Sodium 141 mmol/L (136-145); Total Protein,Serum 6.1 g/dl (6.3-8.2)
[2021-10-30 10:39] LABS: Bilirubin,Total < 0.1 mg/dl (0.2-1.3)
[2021-10-30 10:59] LABS: Lymphocytes % 38 % (10-50); Monocytes % 2 % (2-9); Neutrophils % 60 % (42-76); Total Cells Counted 100
[2021-10-30 11:01] LABS: Platelet Estimate Normal; RBC Morphology Normal
== END ==
PROVIDERS: PCP Emergency Medicine; Visit Provider Otolaryngology
DX: Z01.812 Encounter for preprocedural laboratory examination (principal); Z20.822 Contact with and (suspected) exposure to COVID-19; H02.826 Cysts of left eye, unspecified eyelid; L72.0 Epidermal cyst
CPT/HCPCS: 36415; 80053; 85007; 85014; 85018; 85048; 85049; 93005; C9803; U0003; U0005

== ENCOUNTER 2021-11-01 07:13 | Day surgery (SDC) | payer OTHER, SELFPAY ==
[2021-10-28 13:48] VITALS: BMI 20.9
[2021-11-01] VITALS (9 sets, daily range): BP systolic 122–149; BP diastolic 55–81; PULSE 67–97; RESP 16–25; TEMP 36.1–36.3; O2SAT 94–100
--- NOTE | 2021-11-01 08:26 | HMH.ANESCL ---
[facility] Anesthesia Checklist - Patient Identification Patient Identification: Arm Band, Verbal (Name & ) - Structural Data Admitted From: Home Planned Operative Procedure/s: Evxcision of eyelid and midback lesion Consent for Planned Operative Procedure(s) Verified: Yes Verified Documents: Surgical Consent - NPO Status Verified Time NPO: 00:00 - Chart Verification Results Verified: CBC, BMP - Additional verifications Anesthesia Reactions: No Hx Blood Transfusions: No Blood Transfusion Reaction: No - Airway Assessment C-Spine Mobility Assessed: Yes TMJ Mobility Assessed: Yes Dentition: Partials - Neurological Assessment Level of Consciousness: Awake, Alert, Appropriate - Anesthesia Plan Anesthesia Risk discussed: Yes ASA Class: II Anesthesia Type: General - Preoperative Comments Pre-Operative Comments: none [facility] History Medical History: Reports:: Chronic Obstructive Pulmonary Disease (COPD), Peripheral Artery Disease Denies:: Cancer, Diabetes Mellitus Type 1, Diabetes Mellitus Type 2, Internal Pacemaker, MRSA, Seizures *Have you ever received a pneumonia vaccine?: No *Have you received a flu vaccine this season?: No Other Medical History: Denies: Blood Transfusion Reaction Anesthesia experience/problems:: none Other Surgeries: Yes: Angiogram, Cardiac Catheterization, Cholecystectomy, Coronary Stent, Diagnostic Lap, Hysterectomy-Total, Skin Cancer Excision, Other. No: Colonoscopy, Pacemaker Amputation: No Fractures: Yes - *Social History Last grade of school completed: High school graduate Smoking Status: Current every day smoker Tobacco Type: cigarettes # Packs/Day (cigarettes): 1 Alcohol Intake: never Substance Use Type: denies use *Occupational Status:: unemployed Housing: house Household Members: significant other *Travel in the last 8 weeks: None Family Hx:: Coronary Artery Disease
--- NOTE | 2021-11-01 10:21 | HMH.ANESI ---
[facility] Anesthesia Record Part I Intake, IV Amount: 800 Estimated blood loss (mL): 0 Urine output (mL): 0 Blood Pressure: 132/72 SaO2: 100 Pulse Rate: 87 Respiratory Rate: 25 Temperature: 97.4 F Patient is:: Drowsy, Oral/Nasal airway Stable to PACU at:: 10:17
--- NOTE | 2021-11-01 10:28 | P.OP_ITS ---
Date of procedure: 11/01/21 Pre-op Diagnosis:: 1. Left lateral canthal lesion 2. Midline mid scapular skin lesion Post-op Diagnosis:: 1. Left lateral canthal lesion 2. Midline mid scapular skin lesion Procedure performed:: 1. Wide local excision left lateral canthal lesion measuring 8 mm in greatest diameter 2. Wide local excision mid scapular skin lesion (12 mm) Surgeon:: Rosales Silverman III, MD SALES REPRESENTATIVE [employer]:: Reva Moore Anesthesia: GETA, LMA Estimated blood loss (mL): 2 Operative findings:: 1. Left lateral canthal lesion suspect cyst 2. Mid scapular lesion cystic Operative note:: Patient was brought to the operating placed under general anesthesia with an LMA device. The left lateral canthal lesion was identified and preinjected with 1% lidocaine with epinephrine. It appeared to be a cystic lesion just lateral to the lateral canthus. Ellipse was marked around the area after it was prepared and draped in usual fashion. Incision was brought down through the skin and scope continues tissue and the cyst was preserved as it was being removed. Any bleeding spots were spot coagulated with the bipolar cautery. Incision was then closed with interrupted 5-0 fast-absorbing chromic sutures. Steri-Strips were applied. She was then placed in the lateral position and the back lesion was identified in the mid scapular area. It was in the midline and was longer vertically than laterally; I therefore marked out an incision in the vertical plane. The area was prepared and draped in usual fashion and an injection of 1% lidocaine with epinephrine was placed in the subcutaneous tissue. An ellipse was marked out around the lesion, and was carried down through the skin and subcutaneous tissue and the mass was removed along with the surrounding skin. Subcutaneous tissue was then reapproximated using 4-0 Monocryl suture. A running mattress suture consisting of 5-0 fast-absorbing gut was then used to bring the skin edges together. Steri-Strips were applied followed by pressure dressing. Both specimens were sent for pathologic evaluation. Condition: stable Disposition: PACU Complications:: none
--- NOTE | 2021-11-03 08:12 | HMH.ANESII ---
[facility] Anesthesia Record Part II Discharge Time: 10:47 Destination: Home PACU nurse assessment reviewed?: Yes Patient Condition:: Good Anesthesia Complications:: None Swallowing reflex intact?: Yes Cyanosis?: No Blood Pressure: 126/55 Pulse Rate: 72 Temperature: 97.2 F Mental Status: Alert & Oriented Pain level:: 0 Nausea and/or vomitting:: None Intake, IV Amount: 0
[2021-11-03 08:13] VITALS: BP 126/55; PULSE 72; TEMP 36.2
== END 2021-11-01 11:17 | disposition home or self-care (01) ==
PROVIDERS: PCP Emergency Medicine; Visit Provider Otolaryngology
PROC: (CPT 11406; principal; 2021-11-01 09:00)
DX: H02.826 Cysts of left eye, unspecified eyelid (principal); L72.0 Epidermal cyst; J44.9 Chronic obstructive pulmonary disease, unspecified; I73.9 Peripheral vascular disease, unspecified; Z72.0 Tobacco use; I25.10 Atherosclerotic heart disease of native coronary artery without angina pectoris; Z79.899 Other long term (current) drug therapy
CPT/HCPCS: 11406; 67840

== ENCOUNTER → 2021-11-19 09:27 | Outpatient (CLI) | payer OTHER, SELFPAY ==
[2021-11-19 10:05] LABS: Basophils # 0.1 K/mm3 (0-0.2); Basophils % 1.1 % (0.1-2.0); Eosinophils # 0.4 K/mm3 (0.0-0.4); Eosinophils % 4.4 % (0.1-12.0); Hematocrit 42.8 % (37.0-47.0); Hemoglobin 13.7 g/dL (12.2-16.2); Lymphocytes # 2.2 K/mm3 (0.7-4.5); Lymphocytes % 23.1 % (10-50); Mean Corpuscular HGB Conc 32.1 g/dL (31.8-35.4); Mean Corpuscular Hemoglobin 31.4 pg (27.0-31.2); Mean Corpuscular Volume 97.9 fl (81-99); Mean Platelet Volume 7.2 fl (7.4-10.4); Monocytes # 0.6 K/mm3 (0.1-1.0); Monocytes % 5.8 % (1.7-9.3); Neutrophils # 6.4 K/mm3 (1.8-7.8); Neutrophils % 65.6 % (37.0-80.0); Platelet Count 334 K/mm3 (142-424); Red Blood Count 4.37 M/mm3 (4.20-5.40); Red Cell Distribution Width 13.6 % (11.5-17.5); White Blood Count 9.7 K/mm3 (4.8-10.8)
[2021-11-19 10:25] LABS: INR 0.98 (0.9-1.1); Prothrombin Time 11.1 seconds (10.1-12.5)
[2021-11-19 10:33] LABS: Alanine Aminotransferase 7 U/L (12-78); Albumin/Globulin Ratio 1.7 (1.1-1.8); Alkaline Phosphatase 96 U/L (38-126); Anion Gap 7.7 mEq/L (5-15); Aspartate Amino Transferase 18 U/L (14-36); Bilirubin,Total 0.2 mg/dl (0.2-1.3); Blood Urea Nitrogen 5 mg/dl (7-17); Calcium 9.2 mg/dl (8.4-10.2); Carbon Dioxide 28 mmol/L (22.0-30.0); Chloride 109 mmol/L (98-107); Chol/HDL Ratio 2.7 (1-3.5); Cholesterol 109 mg/dl (140-200); Estimated Glomerular Filt Rate 88 ml/min (>60); GFR (African American) 106 ML/MIN (>60); Globulin 2.4 g/dL (1.3-3.2); Glucose 80 mg/dl (74-100); HDL Cholesterol 41 mg/dl (40-60); Potassium 3.7 mmoL/L (3.5-5.1); Sodium 141 mmol/L (136-145); Total Protein,Serum 6.4 g/dl (6.3-8.2); Triglycerides 83 mg/dl (30-150); VLDL Cholesterol 17 mg/dL (0-40)
[2021-11-19 10:44] LABS: Direct LDL Cholesterol 45.68 mg/dL (100-129)
[2021-11-19 11:03] LABS: Thyroid Stimulating Hormone 1.56 uIU/mL (0.465-4.68)
== END ==
PROVIDERS: PCP Emergency Medicine; Visit Provider Emergency Medicine
DX: E03.9 Hypothyroidism, unspecified (principal); R53.83 Other fatigue; K59.00 Constipation, unspecified
CPT/HCPCS: 36415; 80053; 80061; 82306; 84439; 84443; 85025; 85610

== ENCOUNTER 2021-12-05 10:36 | Emergency (ER) | payer OTHER, SELFPAY ==
[2021-12-05 10:52] VITALS: BP 121/66; PULSE 67; RESP 17; TEMP 36.7; O2SAT 98; BMI 23.0
--- NOTE | 2021-12-05 11:06 | HMH.EDUTC ---
[facility] [place] Dis[place] Clinical Impression: Muscle spasm of back Disposition: Home, Self-Care Condition on Discharge: Good Instructions: Methocarbamol, DI for Muscle Spasm Additional Instructions: *Ibuprofen juanita 6 hours with meal as needed for pain/inflammation if your doctor has said that you can take it *Not additional anti-inflammatory like motrin, aleve, advil with the above amount of ibuprofen. You can still take Tylenol every 4 hours as needed if you need something else for pain *Ice 20 minutes every 2 hours for the first 48 hours after the initial injury followed by moist heat every 20 minutes 3-4 times a day to affected area *Muscle relaxer every 12 hours as needed for muscle spasms but remember, it WILL cause drowsiness You cannot take it and drive, operate machinery or care for small children. *Keep this area active, no movement leads to more stiffness, However take it easy and avoid heavy lifting pushing or pulling *Follow up with you family doctor if no improvement for further treatment Prescriptions: methylPREDNISolone [Medrol 4mg tab] 4 mg PO DIRECTED #21 tab Transmission Status: Received by [id number] methocarbamoL [Methocarbamol 500mg Tablet] 500 mg PO BID PRN 30 Days #60 tab PRN Reason: Muscle Spasm Transmission Status: Received by [id number] Referrals: Mario Herrera MD [Primary Care Provider] - As needed Time of Disposition: 11:30 Medical Decision Making - Shahbaz Inquiry Pt receiving controlled substance: No Shahbaz was queried for this patient: No Vital Signs: 12/05/21 10:52 12/05/21 11:45 Temperature 98.0 F 98.0 F Temperature Source Oral Pulse Rate 67 Pulse Rate [Left] 67 Respiratory Rate 17 17 Blood Pressure 121/66 Blood Pressure [Right Arm] 121/66 Blood Pressure Mean [Right Arm] 84 02 Sat by Pulse Oximetry 98 Medical Decision Narrative: Discussed xrays and patient declined states that she hasnt falling or anything and pain started after lifting the health aide Patient states that she has taken medrol and methocarbamol in the past without complications or reactions Declined injection in the [facility] HPI - General Stated complaint: back and leg pain, no accident Time Seen by Provider: 12/05/21 11:06 Mode of Arrival: Ambulatory Source of Information: Patient Limitations: No Limitations Description of Symptoms (Recalled from Triage Doc. by RN): patient comes in with complaints of severe back and bilateral leg pain. symptoms began monday. patient states that she helped her sister move a lawnmower and ever since that her back has been hurting HEENT Symptoms (Recalled from RN notes): No Resp Symptoms (Recalled from RN notes): No Skin Symptoms (Recalled from RN notes): No MS Symptoms (Recalled from RN notes): Yes Functional Status (Recalled from RN notes): n/a - History of Present Illness Provider Complaint: Patient states that she helped her sister lift a health aide and ever since she has been having pain in her back that is worse with movement States that it feels like she is having spasms States that she took her Percocet and it helps for a little while then the pain returns Denies falling denies loss of control of bowel or bladder - Related Data Home Medications Medication Instructions Recorded Confirmed famotidine 20 mg tablet 20 mg PO DAILY 09/28/20 12/05/21 ALPRAZolam [Alprazolam 0.25mg 0.25 mg PO BID 10/28/21 12/05/21 Tab] Aspirin [Low Dose Aspirin EC] See Rx Instructions .ROUTE .COMPLEX 10/28/21 12/05/21 Atorvastatin Calcium [Lipitor 40mg See Rx Instructions .ROUTE .COMPLEX 10/28/21 12/05/21 Tab] Clopidogrel Bisulfate [Plavix] 75 mg PO DAILY 10/28/21 11/15/21 Gabapentin See Rx Instructions .ROUTE .COMPLEX 10/28/21 12/05/21 Minocycline HCl [Minocycline HCl 100 mg PO BID 10/28/21 11/15/21 100mg Tab*] Oxycodone HCl/Acetaminophen 1 tab PO BID 10/28/21 12/05/21 [Oxycodone-Acetaminophen 5-325] Umeclidinium Brm/Vilanterol Tr 1
[2021-12-05 11:45] VITALS: BP 121/66; PULSE 67; RESP 17; TEMP 36.7
== END 2021-12-05 11:45 | disposition home or self-care (01) ==
PROVIDERS: Emergency Provider Nurse Practitioner; PCP Emergency Medicine
DX: M62.830 Muscle spasm of back (principal); M79.605 Pain in left leg; M79.604 Pain in right leg; Z88.0 Allergy status to penicillin; Z88.6 Allergy status to analgesic agent; Z88.8 Allergy status to other drugs, medicaments and biological substances; Z79.82 Long term (current) use of aspirin; Z79.899 Other long term (current) drug therapy
CPT/HCPCS: 99212; G0463

== ENCOUNTER → 2021-12-16 07:50 | Outpatient (CLI) | payer OTHER, SELFPAY | PROVIDERS: PCP Emergency Medicine; Visit Provider Internal Medicine Pulmonary Disease | DX: R06.09 Other forms of dyspnea (principal) | CPT/HCPCS: 94060; 94726; 94729 ==

== ENCOUNTER → 2022-01-03 13:46 | Outpatient (CLI) | payer OTHER, SELFPAY ==
--- NOTE | 2022-01-03 13:49 | XR_ITS ---
FINAL REPORT CLINICAL HISTORY: Pt injured forearm lifting rolled pennies x 1 day ago. Pain all over Lt forearm (ANNA not specified) FINDINGS: 2 views of the left forearm were obtained. There is no acute fracture or dislocation. The joint spaces are intact. There is no soft tissue abnormality. IMPRESSION: No acute abnormality. Reviewed, Interpreted and Dictated by Kale Valverde III, MD Transcribed by Remberto Marinelli Authenticated and [facility]
== END ==
PROVIDERS: PCP Emergency Medicine; Visit Provider Emergency Medicine
DX: M79.632 Pain in left forearm (principal)
CPT/HCPCS: 73090

== ENCOUNTER → 2022-01-11 12:00 | Outpatient (CLI) | payer OTHER, SELFPAY ==
[2022-01-12 07:13] LABS: Homocyst(e)ine 17.3 umol/L (0.0-14.5)
[2022-01-13 19:13] LABS: Anti-Thrombin III Antigen 112 % (72-124); Antithrombin Activity 136 % (75-135); Factor VIII Activity 109 % (56-140); Protein C Functional 97 % (73-180); Protein S, Free 93 % (61-136); Protein S, Total 117 % (60-150); Protein S-Functional 95 % (63-140)
[2022-01-14 14:42] LABS: Protein C Antigen 82 % (60-150)
[2022-01-21 08:26] LABS: Prothrombin Time 11.4 seconds (10.1-12.5)
== END ==
PROVIDERS: PCP Emergency Medicine; Visit Provider Emergency Medicine
DX: L98.9 Disorder of the skin and subcutaneous tissue, unspecified (principal)
CPT/HCPCS: 36415; 81241; 83090; 85240; 85300; 85301; 85302; 85305; 85306; 85610; 86148

== ENCOUNTER → 2022-02-02 09:30 | Outpatient (CLI) | payer OTHER, SELFPAY | PROVIDERS: PCP Emergency Medicine; Visit Provider Emergency Medicine | DX: Z11.1 Encounter for screening for respiratory tuberculosis (principal) ==

== ENCOUNTER → 2022-02-02 10:10 | Outpatient (CLI) | payer OTHER, SELFPAY ==
--- NOTE | 2022-02-02 10:11 | XR_ITS ---
FINAL REPORT CLINICAL HISTORY: rule out TB COMPARISON: November 26, 2020 FINDINGS: Two views of the chest were obtained. The heart size and pulmonary vascularity are within normal limits. The mediastinum is normal. There is mild left lung base scarring. There is no acute abnormality. There is no evidence of active mycobacterial/fungal disease. There is no pneumothorax. The bony thorax is intact. IMPRESSION: Mild left lung base scarring. No evidence of active mycobacterial/fungal disease. Reviewed, Interpreted and Dictated by Kale Valverde III, MD Transcribed by Tiffany Sanchez Authenticated and . [facility]
[2022-02-02 12:16] LABS: Amphetamine/Metha Screen,Urine Negative ng/ml (<1000)
[2022-02-02 12:18] LABS: Barbiturates Screen,Urine Negative ng/ml (<200); Benzodiazepines Screen,Urine Negative ng/ml (<200)
[2022-02-02 12:19] LABS: Cannabinoid Screen,Urine Negative ng/ml (<50)
[2022-02-02 12:20] LABS: Cocaine Screen,Urine Negative ng/ml (<300); Methadone Screen,Urine Negative ng/ml (<300)
[2022-02-02 12:21] LABS: Opiate Screen,Urine Negative ng/ml (<300)
[2022-02-02 12:23] LABS: Phencyclidine Screen,Urine Negative ng/ml (<25)
[2022-02-02 18:05] LABS: Amphetamine/Metha Screen,Urine Negative ng/ml (<1000)
[2022-02-02 18:06] LABS: Barbiturates Screen,Urine Negative ng/ml (<200); Benzodiazepines Screen,Urine Negative ng/ml (<200)
[2022-02-02 18:07] LABS: Cannabinoid Screen,Urine Negative ng/ml (<50); Cocaine Screen,Urine Negative ng/ml (<300)
[2022-02-02 18:08] LABS: Methadone Screen,Urine Negative ng/ml (<300)
[2022-02-02 18:11] LABS: Opiate Screen,Urine Negative ng/ml (<300); Phencyclidine Screen,Urine Negative ng/ml (<25)
== END ==
PROVIDERS: PCP Emergency Medicine; Visit Provider Emergency Medicine
DX: Z11.1 Encounter for screening for respiratory tuberculosis (principal); M54.12 Radiculopathy, cervical region
CPT/HCPCS: 71046; 80305

== ENCOUNTER → 2022-03-16 11:37 | Outpatient (CLI) | payer OTHER, SELFPAY ==
--- NOTE | 2022-03-16 11:39 | XR_ITS ---
FINAL REPORT CLINICAL HISTORY: left hip pain FINDINGS: 2 views of the left hip and an AP pelvis were obtained. There is no acute fracture or dislocation. There are mild degenerative changes of both hips. There is mild vascular calcification. There is a right iliac artery stent. IMPRESSION: Mild degenerative change. Reviewed, Interpreted and Dictated by Kale Valverde III, MD Transcribed by Remberto Marinelli Authenticated and [facility]
== END ==
PROVIDERS: PCP Emergency Medicine; Visit Provider Emergency Medicine
DX: M25.552 Pain in left hip (principal)
CPT/HCPCS: 73502

== ENCOUNTER → 2022-03-22 15:27 | Outpatient (CLI) | payer OTHER, SELFPAY ==
--- NOTE | 2022-03-22 15:27 | CT_ITS ---
FINAL REPORT TECHNIQUE: Axial images were obtained from the lung apex to the mid abdomen by computed tomography. This study was performed with techniques to keep radiation doses as low as reasonably achievable (ALARA). Individualized dose reduction techniques using automated exposure control or adjustment of mA and/or kV according to the patient's size were employed. CLINICAL HISTORY: lung cancer screening COMPARISON: Chest CT dated 12/17/2019 FINDINGS: CHEST CT LOW DOSE CTDI vol (mGy): 2.90 DLP (mGy-cm): 108.90 There is no axillary adenopathy. There is no hilar or mediastinal adenopathy. The heart is normal in size. There is no pericardial or pleural effusion. Note is made of emphysema. Scattered chronic changes are identified. There is new, fibrosis/collapse in the right middle lobe. No obvious mass is identified. No suspicious pulmonary nodule is seen. Limited images of the upper abdomen are unremarkable. IMPRESSION: New fibrosis/collapse in the right middle lobe. No suspicious pulmonary nodule. Lung RADS category 1S. Recommend 6 month follow-up low-dose chest CT given the new findings in the right middle lobe. Reviewed, Interpreted and Dictated by Norma Mittal MD Transcribed by Kelly Gonsales Authenticated and [facility]
== END ==
PROVIDERS: PCP Emergency Medicine; Visit Provider Internal Medicine Pulmonary Disease
DX: Z87.891 Personal history of nicotine dependence (principal); Z12.2 Encounter for screening for malignant neoplasm of respiratory organs
CPT/HCPCS: 71271

== ENCOUNTER → 2022-05-17 06:17 | Outpatient (CLI) | payer OTHER, SELFPAY ==
[2022-05-17 18:28] LABS: Coronavirus 19, PCR Not Detected (NotDetected); Influenza A, PCR Not Detected (NotDetected); Influenza B, PCR Not Detected (NotDetected)
== END ==
PROVIDERS: PCP Emergency Medicine; Visit Provider Emergency Medicine
DX: R09.89 Other specified symptoms and signs involving the circulatory and respiratory systems (principal)
CPT/HCPCS: C9803; U0003; U0005

== ENCOUNTER → 2022-06-14 08:01 | Outpatient (CLI) | payer OTHER, SELFPAY ==
--- NOTE | 2022-06-14 08:01 | US_ITS ---
FINAL REPORT CLINICAL HISTORY: pulsating sensation to abdomen FINDINGS: Limited sonographic images were obtained of the abdomen to evaluate the abdominal aorta and iliac arteries. The abdominal aorta measures up to 2.0 cm in greatest dimension. The iliac arteries are within normal limits. IMPRESSION: No evidence of abdominal aortic aneurysm. Reviewed, Interpreted and Dictated by Kale Valverde III, MD Transcribed by Tiffany Sanchez Authenticated and [facility]
== END ==
PROVIDERS: PCP Emergency Medicine; Visit Provider Nurse Practitioner
DX: R07.89 Other chest pain (principal); I73.9 Peripheral vascular disease, unspecified; I77.4 Celiac artery compression syndrome
CPT/HCPCS: 76770

== ENCOUNTER → 2022-07-13 14:39 | Outpatient (CLI) | payer OTHER, SELFPAY ==
--- NOTE | 2022-07-13 14:50 | XR_ITS ---
FINAL REPORT CLINICAL HISTORY: congestion, covid + FINDINGS: SINGLE-VIEW CHEST The heart size is normal. The mediastinum is normal. There is mild airspace opacity at the left base, probably due to small focus of acute pneumonia. There is linear scar or atelectasis at the right base, favor atelectasis. There is no pneumothorax. IMPRESSION: Probable acute pneumonia at the left base. Reviewed, Interpreted and Dictated by Malcolm Tolliver MD Transcribed by Kelly Gonsales Authenticated and [facility]
== END ==
PROVIDERS: PCP Emergency Medicine; Visit Provider Emergency Medicine
DX: R09.89 Other specified symptoms and signs involving the circulatory and respiratory systems (principal)
CPT/HCPCS: 71045

== ENCOUNTER → 2022-07-26 09:20 | Outpatient (CLI) | payer OTHER, SELFPAY ==
[2022-07-26 14:07] LABS: Amphetamine/Metha Screen,Urine Negative ng/ml (<1000)
[2022-07-26 14:08] LABS: Barbiturates Screen,Urine Negative ng/ml (<200)
[2022-07-26 14:09] LABS: Benzodiazepines Screen,Urine Negative ng/ml (<200); Cannabinoid Screen,Urine Negative ng/ml (<50)
[2022-07-26 14:10] LABS: Cocaine Screen,Urine Negative ng/ml (<300)
[2022-07-26 14:11] LABS: Methadone Screen,Urine Negative ng/ml (<300); Opiate Screen,Urine Negative ng/ml (<300)
[2022-07-26 14:12] LABS: Phencyclidine Screen,Urine Negative ng/ml (<25)
== END ==
PROVIDERS: PCP Emergency Medicine; Visit Provider Emergency Medicine
DX: Z79.899 Other long term (current) drug therapy (principal)
CPT/HCPCS: 80305

== ENCOUNTER → 2022-08-04 06:14 | Outpatient (CLI) | payer OTHER, SELFPAY | PROVIDERS: PCP Emergency Medicine; Visit Provider Nurse Practitioner | DX: R07.89 Other chest pain (principal); I25.10 Atherosclerotic heart disease of native coronary artery without angina pectoris; I35.0 Nonrheumatic aortic (valve) stenosis | CPT/HCPCS: 78452; 93017; 93306; A9502; J2785 ==

== ENCOUNTER → 2022-08-22 08:52 | Outpatient (CLI) | payer OTHER, SELFPAY ==
--- NOTE | 2022-08-22 08:56 | XR_ITS ---
FINAL REPORT CLINICAL HISTORY: Chronic left foot pain FINDINGS: LEFT FOOT Three views demonstrate no acute fracture or dislocation. Mild hypertrophic changes are seen at the 1st metatarsophalangeal joint. There is a degenerative cyst at the base of the 1st proximal phalanx measuring 6 mm. No acute soft tissue abnormality is seen. IMPRESSION: Mild hypertrophic changes of the 1st MTP joint with a degenerative cyst at the base of the 1st proximal phalanx. Reviewed, Interpreted and Dictated by Malcolm Tolliver MD Transcribed by Donna Salazar Authenticated and [facility]
--- NOTE | 2022-08-22 08:56 | XR_ITS ---
FINAL REPORT CLINICAL HISTORY: Chronic right foot pain FINDINGS: RIGHT FOOT Three views demonstrate no acute fracture or dislocation. There are hammertoe deformities of the 2nd, 3rd, and 4th digits. The joint spaces appear normal. No acute soft tissue abnormality is seen. IMPRESSION: No acute process. Reviewed, Interpreted and Dictated by Malcolm Tolliver MD Transcribed by Donna Salazar Authenticated and [facility]
== END ==
PROVIDERS: PCP Emergency Medicine; Visit Provider Emergency Medicine
DX: M79.671 Pain in right foot (principal); M79.672 Pain in left foot; R00.2 Palpitations
CPT/HCPCS: 73630; 93270

== ENCOUNTER → 2022-09-26 14:36 | Outpatient (CLI) | payer OTHER, SELFPAY ==
[2022-09-26 13:32] LABS: Alanine Aminotransferase 14 U/L (12-78); Albumin Level 4.5 g/dl (3.5-5.0); Albumin/Globulin Ratio 1.9 (1.1-1.8); Alkaline Phosphatase 80 U/L (38-126); Anion Gap 15.2 mEq/L (5-15); Aspartate Amino Transferase 33 U/L (14-36); Bilirubin,Total 0.6 mg/dl (0.2-1.3); Blood Urea Nitrogen 7 mg/dl (7-17); Calcium 9.1 mg/dl (8.4-10.2); Carbon Dioxide 28 mmol/L (22.0-30.0); Chloride 99 mmol/L (98-107); Chol/HDL Ratio 2.5 (1-3.5); Cholesterol 113 mg/dl (140-200); Estimated Glomerular Filt Rate 88 ml/min (>60); GFR (African American) 106 ML/MIN (>60); Globulin 2.4 g/dL (1.3-3.2); Glucose 103 mg/dl (74-100); HDL Cholesterol 45 mg/dl (40-60); Potassium 4.2 mmoL/L (3.5-5.1); Sodium 138 mmol/L (136-145); Total Protein,Serum 6.9 g/dl (6.3-8.2); Triglycerides 126 mg/dl (30-150); VLDL Cholesterol 25 mg/dL (0-40)
[2022-09-26 13:43] LABS: Direct LDL Cholesterol 50.79 mg/dL (100-129)
[2022-09-26 13:54] LABS: Basophils # 0.1 K/mm3 (0-0.2); Basophils % 0.6 % (0.1-2.0); Eosinophils # 0.3 K/mm3 (0.0-0.4); Eosinophils % 2.9 % (0.1-12.0); Hematocrit 39.3 % (37.0-47.0); Hemoglobin 12.8 g/dL (12.2-16.2); Lymphocytes # 1.9 K/mm3 (0.7-4.5); Lymphocytes % 19.5 % (10-50); Mean Corpuscular HGB Conc 32.6 g/dL (31.8-35.4); Mean Corpuscular Hemoglobin 31.3 pg (27.0-31.2); Mean Corpuscular Volume 96.1 fl (81-99); Mean Platelet Volume 7.1 fl (7.4-10.4); Monocytes # 0.6 K/mm3 (0.1-1.0); Monocytes % 5.6 % (1.7-9.3); Neutrophils % 71.3 % (37.0-80.0); Platelet Count 287 K/mm3 (142-424); Red Blood Count 4.09 M/mm3 (4.20-5.40); Red Cell Distribution Width 12.8 % (11.5-17.5); White Blood Count 9.8 K/mm3 (4.8-10.8)
[2022-09-26 14:00] LABS: Amphetamine/Metha Screen,Urine Negative ng/ml (<1000)
[2022-09-26 14:01] LABS: Barbiturates Screen,Urine Negative ng/ml (<200)
[2022-09-26 14:02] LABS: Thyroid Stimulating Hormone 1.62 uIU/mL (0.465-4.68)
[2022-09-26 14:02] LABS: Benzodiazepines Screen,Urine Negative ng/ml (<200)
[2022-09-26 14:03] LABS: Cannabinoid Screen,Urine Negative ng/ml (<50)
[2022-09-26 14:04] LABS: Cocaine Screen,Urine Negative ng/ml (<300)
[2022-09-26 14:05] LABS: Methadone Screen,Urine Negative ng/ml (<300); Opiate Screen,Urine Negative ng/ml (<300)
[2022-09-26 14:06] LABS: Phencyclidine Screen,Urine Negative ng/ml (<25)
[2022-09-26 14:33] LABS: Hemoglobin A1C 5.7 % (4.0-6.0)
== END ==
PROVIDERS: PCP Emergency Medicine; Visit Provider Emergency Medicine
DX: Z79.899 Other long term (current) drug therapy (principal); E78.5 Hyperlipidemia, unspecified
CPT/HCPCS: 80053; 80061; 80305; 83036; 84443; 85025

== ENCOUNTER → 2022-10-06 09:22 | Outpatient (CLI) | payer OTHER, SELFPAY ==
--- NOTE | 2022-10-06 | US_ITS ---
FINAL REPORT CLINICAL HISTORY: Smoker, Right leg stents, HLD, TIA FINDINGS: COMPLETE ANKLE/BRACHIAL INDICES BILATERAL Complete ankle brachial indices were obtained. The right THOMAS is 1.0. The left THOMAS is 1.0. IMPRESSION: ABIs are within normal limits bilaterally. Reviewed, Interpreted and Dictated by Kale Valverde III, MD Transcribed by Kelly Gonsales Authenticated and . [facility]
== END ==
PROVIDERS: PCP Emergency Medicine; Visit Provider Emergency Medicine
DX: M79.606 Pain in leg, unspecified (principal); R25.2 Cramp and spasm; R09.89 Other specified symptoms and signs involving the circulatory and respiratory systems
CPT/HCPCS: 93923

== ENCOUNTER → 2022-11-23 12:58 | Outpatient (CLI) | payer OTHER, SELFPAY ==
[2022-11-23 15:36] LABS: Amphetamine/Metha Screen,Urine Negative ng/ml (<1000); Barbiturates Screen,Urine Negative ng/ml (<200); Benzodiazepines Screen,Urine Negative ng/ml (<200)
[2022-11-23 15:41] LABS: Cocaine Screen,Urine Negative ng/ml (<300); Phencyclidine Screen,Urine Negative ng/ml (<25)
[2022-11-23 16:09] LABS: Cannabinoid Screen,Urine Negative ng/ml (<50); Methadone Screen,Urine Negative ng/ml (<300)
[2022-11-23 16:10] LABS: Opiate Screen,Urine Negative ng/ml (<300)
== END ==
PROVIDERS: PCP Emergency Medicine; Visit Provider Emergency Medicine
DX: Z79.899 Other long term (current) drug therapy (principal)
CPT/HCPCS: 80305

== ENCOUNTER → 2023-01-11 11:10 | Outpatient (CLI) | payer OTHER, SELFPAY ==
[2023-01-11 19:54] LABS: Amphetamine/Metha Screen,Urine Negative ng/ml (<1000); Barbiturates Screen,Urine Negative ng/ml (<200)
[2023-01-11 19:55] LABS: Benzodiazepines Screen,Urine Negative ng/ml (<200)
[2023-01-11 19:56] LABS: Cannabinoid Screen,Urine Negative ng/ml (<50); Cocaine Screen,Urine Negative ng/ml (<300)
[2023-01-11 19:57] LABS: Methadone Screen,Urine Negative ng/ml (<300)
[2023-01-11 19:58] LABS: Opiate Screen,Urine Negative ng/ml (<300); Phencyclidine Screen,Urine Negative ng/ml (<25)
== END ==
PROVIDERS: PCP Emergency Medicine; Visit Provider Emergency Medicine
DX: Z79.899 Other long term (current) drug therapy (principal)
CPT/HCPCS: 80305

== ENCOUNTER → 2023-02-01 09:04 | Outpatient (CLI) | payer OTHER, SELFPAY ==
--- NOTE | 2023-02-01 09:07 | XR_ITS ---
FINAL REPORT CLINICAL HISTORY: callous of right foot, foot pain FINDINGS: Right foot Three views were obtained. There is no acute fracture or dislocation. The joint spaces appear normal. No soft tissue abnormality is identified. IMPRESSION: No acute process. Reviewed, Interpreted and Dictated by Kale Valverde III, MD Transcribed by Kelly Gonsales Authenticated and [facility]
== END ==
PROVIDERS: PCP Emergency Medicine; Visit Provider Podiatrist
DX: M79.671 Pain in right foot (principal)
CPT/HCPCS: 73630

== ENCOUNTER → 2023-02-20 15:21 | Outpatient (CLI) | payer OTHER, SELFPAY ==
--- NOTE | 2023-02-20 15:21 | US_ITS ---
FINAL REPORT CLINICAL HISTORY: B/L LE decreased sensation recent left great toe nail removal difficulty in healing FINDINGS: ANKLE-BRACHIAL PRESSURE INDICES Pressure indices are as follows: RIGHT LOWER EXTREMITY: Ankle-brachial pressure index: 1.1 Comments: Normal LEFT LOWER EXTREMITY: Ankle-brachial pressure index: 1.0 Comments: Normal IMPRESSION: No evidence of significant obstructive peripheral vascular disease of the lower extremities Reviewed, Interpreted and Dictated by Kale Valverde III, MD Transcribed by Anabel Calderon Authenticated and [facility]
== END ==
PROVIDERS: PCP Emergency Medicine; Visit Provider Podiatrist
DX: R20.8 Other disturbances of skin sensation (principal)
CPT/HCPCS: 93923

== ENCOUNTER → 2023-03-08 08:10 | Outpatient (CLI) | payer OTHER, SELFPAY | PROVIDERS: PCP Emergency Medicine; Visit Provider Emergency Medicine | DX: R06.02 Shortness of breath (principal) | CPT/HCPCS: 87635 ==

== ENCOUNTER → 2023-03-28 11:35 | Outpatient (CLI) | payer OTHER, SELFPAY ==
[2023-03-28 12:06] LABS: Basophils # 0.1 K/mm3 (0-0.2); Basophils % 0.5 % (0.1-2.0); Eosinophils # 0.3 K/mm3 (0.0-0.4); Eosinophils % 3.3 % (0.1-12.0); Hematocrit 40.6 % (37.0-47.0); Hemoglobin 13.9 g/dL (12.2-16.2); Lymphocytes # 2.7 K/mm3 (0.7-4.5); Mean Corpuscular HGB Conc 34.2 g/dL (31.8-35.4); Mean Corpuscular Hemoglobin 32.8 pg (27.0-31.2); Mean Corpuscular Volume 95.9 fl (81-99); Mean Platelet Volume 7.9 fl (7.4-10.4); Monocytes # 0.4 K/mm3 (0.1-1.0); Neutrophils # 6.5 K/mm3 (1.8-7.8); Neutrophils % 65.2 % (37.0-80.0); Platelet Count 301 K/mm3 (142-424); Red Blood Count 4.23 M/mm3 (4.20-5.40); Red Cell Distribution Width 12.9 % (11.5-17.5); White Blood Count 9.9 K/mm3 (4.8-10.8)
[2023-03-28 12:44] LABS: Alanine Aminotransferase 12 U/L (12-78); Albumin Level 4.4 g/dl (3.5-5.0); Albumin/Globulin Ratio 1.7 (1.1-1.8); Alkaline Phosphatase 67 U/L (38-126); Anion Gap 12.9 mEq/L (5-15); Aspartate Amino Transferase 25 U/L (14-36); Bilirubin,Total 0.4 mg/dl (0.2-1.3); Blood Urea Nitrogen 6 mg/dl (7-17); Calcium 8.8 mg/dl (8.4-10.2); Carbon Dioxide 26 mmol/L (22.0-30.0); Chloride 103 mmol/L (98-107); Estimated Glomerular Filt Rate 88 ml/min (>60); GFR (African American) 106 ML/MIN (>60); Globulin 2.6 g/dL (1.3-3.2); Glucose 129 mg/dl (74-100); Potassium 3.9 mmoL/L (3.5-5.1); Sodium 138 mmol/L (136-145)
[2023-03-28 12:46] LABS: Erythrocyte Sedimentation Rate 13 mm/hr (0-30)
[2023-03-28 12:49] LABS: C-Reactive Protein 0.8 mg/L (0-4)
== END ==
PROVIDERS: PCP Internal Medicine; Visit Provider Podiatrist
DX: R60.9 Edema, unspecified (principal)
CPT/HCPCS: 36415; 80053; 85025; 85651; 86140

== ENCOUNTER → 2023-04-05 09:06 | Outpatient (CLI) | payer OTHER, SELFPAY ==
--- NOTE | 2023-04-05 09:06 | CA_ITS ---
FINAL REPORT TECHNIQUE: Real-time imaging was performed of the extracranial carotid arteries in transverse and longitudinal planes, with color duplex evaluation of blood flow velocity. Spectral analysis was performed. The cervical vertebral arteries were also examined. CLINICAL HISTORY: ALONSO,DIZZINESS,SMOKER COMPARISON: None FINDINGS: NASCET technique is utilized for stenosis evaluation. Right carotid system (centimeters/second): CCA: 106 ICA: 129 ECA: 79 Vertebral artery: Antegrade ICA/CCA ratio: 1.8 Minimal plaque is identified at the bifurcation. Left carotid system (centimeters/second): CCA: 100 ICA: 111 ECA: 70 Vertebral artery: Antegrade ICA/CCA ratio: 1.25 Minimal plaque is identified at the bifurcation. IMPRESSION: Less than 50% right ICA stenosis. Less than 50% left ICA stenosis. Antegrade flow bilateral vertebral arteries. Reviewed, Interpreted and Dictated by Malcolm Tolliver MD Transcribed by Grace Navas Authenticated and . [facility]
== END ==
PROVIDERS: PCP Internal Medicine; Visit Provider Nurse Practitioner
DX: R42 Dizziness and giddiness (principal); I65.23 Occlusion and stenosis of bilateral carotid arteries; I77.9 Disorder of arteries and arterioles, unspecified
CPT/HCPCS: 93880

== ENCOUNTER → 2023-04-10 09:07 | Outpatient (CLI) | payer OTHER, SELFPAY ==
--- NOTE | 2023-04-10 09:15 | CT_ITS ---
FINAL REPORT TECHNIQUE: Axial CT images of the chest were obtained without contrast. Low-dose protocol was utilized. This study was performed with techniques to keep radiation doses as low as reasonably achievable (ALARA). Individualized dose reduction techniques using automated exposure control or adjustment of mA and/or kV according to the patient's size were employed. CLINICAL HISTORY: lung cancer screening, smokes 1 pk per day for 30+ yrs, COPD, mother had hx of lung cancer, exposed to second hand smoke COMPARISON: 03/22/2022 FINDINGS: CT CHEST WITHOUT, LOW DOSE SCREENING CT Di Vol: 2.90 mGy DLP: 109.16 mGy*cm There is no axillary, mediastinal, or hilar adenopathy. The heart size is normal. There is dense calcification of the aortic arch. There is no pleural or pericardial effusion. The lung windows show no suspicious mass or nodule. There is linear density along the medial aspect of the right upper lobe. There is a calcified granuloma in the left upper lobe. Mild changes of centrilobular emphysema are noted. Limited images of the upper abdomen demonstrate no acute findings. IMPRESSION: LR Category 1S: 12 month follow-up low-dose chest CT is recommended. Modifier S: Scarring medial right upper lobe. Reviewed, Interpreted and Dictated by Malcolm Tolliver MD Transcribed by Rena Jaimes Authenticated and [facility]
== END ==
PROVIDERS: PCP Internal Medicine; Visit Provider Internal Medicine Pulmonary Disease
DX: F17.200 Nicotine dependence, unspecified, uncomplicated (principal); Z12.2 Encounter for screening for malignant neoplasm of respiratory organs; R06.09 Other forms of dyspnea
CPT/HCPCS: 71271; 94060

== ENCOUNTER 2023-04-25 14:37 | Emergency (ER) | payer OTHER, SELFPAY ==
[2023-04-25 15:45] VITALS: BP 120/67; PULSE 92; RESP 19; TEMP 37.1; O2SAT 96; BMI 19.8
--- NOTE | 2023-04-25 16:03 | ED_ITS ---
Discharge Plan Disposition Patient Disposition: Home, Self-Care Condition: Good Prescriptions Prescriptions: New azithromycin [Zithromax Z-Horacio] 250 mg tablet See Rx Instructions .ROUTE .COMPLEX 5 Days Qty: 6 0RF Rx Instructions: For 250 mg dose pack: take 500 mg today (day 1), then 250 mg for 4 days (days 2-5) prednisone [prednisone] 20 mg tablet 20 mg PO BID 5 Days Qty: 10 0RF guaifenesin [Mucinex] 600 mg tablet extended release 12hr 600 mg PO BID PRN (Reason: cough) Qty: 20 0RF No Action ipratropium-albuterol 0.5 mg-3 mg(2.5 mg base)/3 mL solution for nebulization 3 ml inhalation QID PRN (Reason: shortness of breath or wheezing) 90 Days Qty: 270 3RF benzonatate 150 mg capsule 150 mg PO TID PRN (Reason: cough) fluticasone propionate [Flonase Allergy Relief] 50 mcg/actuation spray,suspension 2 spray intranasal DAILY 90 Days Qty: 16 2RF Rx Instructions: administer into each nostril azelastine 137 mcg (0.1 %) aerosol,spray 2 spray intranasal HS 90 Days Qty: 30 3RF Rx Instructions: administer into each nostril Trelegy Ellipta 200-62.5-25 mcg blister with device 1 inh inhalation DAILY 90 Days Qty: 90 3RF Santyl 250 unit/gram ointment 1 applic topical QDAY Qty: 30 1RF diclofenac sodium 1 % gel 2 g topical QID Qty: 100 0RF Rx Instructions: apply to single elbow, wrist or hand; for hand includes palm/fingers/back of hand bisoprolol fumarate 5 mg tablet 7.5 mg PO DAILY 90 Days Qty: 135 3RF clonazepam [Klonopin] 0.5 mg tablet 0.5 mg PO BID Qty: 60 1RF gabapentin 300 mg capsule See Rx Instructions .Route .COMPLEX Qty: 120 1RF Rx Instructions: Take one tablet twice dailly and 2 tablets at night; oxycodone-acetaminophen [Percocet] 7.5-325 mg tablet 1 tab PO BID Qty: 60 0RF lidocaine 5 % adhesive patch,medicated 1 patch topical DAILY Qty: 30 2RF Rx Instructions: Leave on most painful area for up to 12 hrs doxycycline hyclate 100 mg tablet 100 mg PO BID Qty: 28 0RF lidocaine 5 % adhesive patch,medicated See Rx Instructions .ROUTE .COMPLEX Qty: 30 1RF Dose Instruction: APPLY 1 PATCH TOPICALLY ONCE DAILY AND LEAVE ON MOST PAINFUL AREA FOR UP TO 12 HOURS Rx Instructions: APPLY 1 PATCH TOPICALLY ONCE DAILY AND LEAVE ON MOST PAINFUL AREA FOR UP TO 12 HOURS albuterol sulfate [ProAir HFA] 90 mcg/actuation HFA aerosol inhaler See Rx Instructions .ROUTE .COMPLEX Qty: 8.5 2RF Dose Instruction: INHALE TWO PUFFS BY MOUTH THREE TIMES DAILY NEEDED FOR SHORTNESS OF BREATH OR wheezing Rx Instructions: INHALE TWO PUFFS BY MOUTH THREE TIMES DAILY NEEDED FOR SHORTNESS OF BREATH OR wheezing nystatin 100,000 unit/mL suspension 10 ml PO QID 5 Days Qty: 200 0RF Rx Instructions: swish and swallow aspirin 81 mg tablet,delayed release (DR/EC) 81 mg PO DAILY Qty: 90 1RF Rx Instructions: 81 mg orally daily; atorvastatin 40 mg tablet 40 mg PO DAILY Qty: 90 3RF clopidogrel [Plavix] 75 mg tablet 75 mg PO DAILY Qty: 30 11RF pantoprazole 40 mg tablet,delayed release (DR/EC) See Rx Instructions .ROUTE .COMPLEX Qty: 90 0RF Dose Instruction: Take 1 tablet by mouth once daily Rx Instructions: Take 1 tablet by mouth once daily Referrals Follow up/Referrals: Mario Llamas DO [Primary Care Provider] - See instructions Activity Restrictions/Add. Instructions Additional Instructions/Restrictions: * Start antibiotic today. Be sure to complete entire prescription even if feeling better * Monitor temp. Tylenol every 4 hours as needed and / or ibuprofen every 6 hours as needed ( As long as your primary care physician has told you that it ok to take both. For fever/aches/pains ER if no less than 101 despite Tylenol or Motrin * Humidifier/vaporizer or hot steamy shower * Mucinex for your cough Be sure to drink lots of water. *Start steroid today. Helps with inflammation therefore, cough and wheezing. Follow directions on the package. Reviewed side effects. Patient reports taking them before. Follow up IMMEDIATELY for new or worsening of symptoms OR no noticeable improvement over the next 48-72 hours. 911 immediately for any life threatening symptoms such as chest pain or difficulty breathing You were tested for today for ?Upper Respiratory Panel with COVID19 your test result should be back in the next 24hours, you may check your results on the [facility] My Health Portal if your COVID or Flu is positive you must Quarantine for 5 days Clinical Impressions Clinical Impression: Bronchitis Instructions Patient Instructions: Acute Bronchitis, DI for Fever (Symptom) -- Adult Discharge ED Provider: Brandi Flores [facility] HPI General Stated complaint: fever, cough, chills body aches Mode of Arrival: Ambulatory Source of Information: Patient Limitations: No Limitations Time Seen by Provider: 04/25/23 16:03 Description of Symptoms (Recalled from Triage Doc. by RN): PATIENT C/O FEVER, BODY ACHES AND COUGH SINCE MONDAY HEENT Symptoms (Recalled from RN notes): No Resp Symptoms (Recalled from RN notes): Yes Skin Symptoms (Recalled from RN notes): No MS Symptoms (Recalled from RN notes): No Functional Status (Recalled from RN notes): WNL History of Present Illness Provider Complaint: Patient states that she started feeling bad on Monday States that she had a cough and at times would cough up some mucous States that since then she started with fever, chills, body aches and over all feeling bad states that she has been drinking but dont have much of an appetite so today when she was still feeling bad she came in to get checked Related Data Home Medications Medication Instructions Recorded Confirmed benzonatate 150 mg capsule 150 mg PO TID PRN cough 05/31/22 03/28/23 Previous Rx's Medication Instructions Recorded ipratropium 0.5 mg-albuterol 3 mg 3 ml inhalation QID PRN shortness 12/21/21 (2.5 mg base)/3 mL nebulization of breath or wheezing 90 days #270 soln mL diclofenac sodium 1 % topical gel 2 g topical QID #100 grams 05/02/22 lidocaine 5 % topical patch See Rx Instructions .Route 05/30/22 .COMPLEX #30 patches albuterol sulfate 90 mcg/actuation See Rx Instructions .Route 07/13/22 aerosol inhaler (ProAir HFA) .COMPLEX #8.5 grams nystatin 100,000 unit/mL oral 10 ml PO QID 5 days #200 mL 07/26/22 suspension azelastine 137 mcg (0.1 %) nasal 2 spray intranasal HS 90 days #30 09/22/22 spray aerosol mL fluticasone fur. 200 mcg-umeclid 1 inh inhalation DAILY 90 days #90 09/22/22 62.5 mcg-vilant 25 mcg ea inhalat.powder (Trelegy Ellipta) fluticasone propionate 50 2 spray intranasal DAILY 90 days 09/22/22 mcg/actuation nasal #16 grams spray,suspension (Flonase Allergy Relief) aspirin 81 mg tablet,delayed 81 mg PO DAILY thiiner #90 tabs 11/23/22 release atorvastatin 40 mg tablet 40 mg PO DAILY #90 tabs 11/23/22 clopidogrel 75 mg tablet (Plavix) 75 mg PO DAILY #30 tabs 12/13/22 pantoprazole 40 mg tablet,delayed See Rx Instructions .Route 01/27/23 release .COMPLEX #90 tabs doxycycline hyclate 100 mg tablet 100 mg PO BID #28 tabs 02/17/23 lidocaine 5 % topical patch 1 patch topical DAILY pain #30 ea 02/17/23 clonazepam 0.5 mg tablet (Klonopin) 0.5 mg PO BID #60 tabs 03/08/23 gabapentin 300 mg capsule See Rx Instructions .Route 03/08/23 .COMPLEX Pain #120 caps oxycodone-acetaminophen 7.5 mg-325 1 tab PO BID #60 tabs 03/08/23 mg tablet (Percocet) bisoprolol fumarate 5 mg tablet 7.5 mg PO DAILY 90 days #135 tabs 03/28/23 collagenase clostridium histo. 250 1 applic topical QDAY wound care 03/28/23 unit/gram topical ointment (Santyl) #30 grams azithromycin 250 mg tablet See Rx Instructions PO .COMPLEX 5 04/25/23 (Zithromax Z-Horacio) days #6 tabs guaifenesin 600 mg tablet, 600 mg PO BID PRN cough #20 tabs 04/25/23 extended release 12 hr (Mucinex) prednisone 20 mg tablet 20 mg PO BID 5 days #10 tabs 04/25/23 Allergies Allergy/AdvReac Type Severity Reaction Status Date / Time fluoxetine [From Prozac] Allergy Intermediate I-RASH Verified 03/28/23 10:41 Penicillins Allergy Intermediate I-RASH Verified 03/28/23 10:41 tramadol AdvReac dizziness, Verified 03/28/23 10:41 sweats Worker's Comp Is this a Worker's Comp case?: No [facility] Disclaimer: The information contained in this section may have been updated after the patient was seen, as this information can be updated by other users. 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 Tobacco abuse counseling Tobacco abuse counseling Tobacco abuse disorder Surgical History H/O total hysterectomy History of abdominal surgery History of cholecystectomy History of heart artery stent Family History Mother Lung cancer Social History Smoking Status: Current every day smoker tobacco type: cigarettes packs per day: 1 second hand exposure: No alcohol intake: never substance use type: denies use current occupational status: unemployed Travel in the last 8 weeks: None household members: significant other housing: house current occupation: [employer] current occupational exposures/hazards: No caffeine: Yes ROS Obtained: Yes All systems reviewed & no additional complaints except as documented and Yes Systems reviewed as appropriate & no additional complaints except as documented Constitutional Constitutional: Reports system reviewed and no additional complaints, except as documented, Reports as per HPI, Reports body ache, Reports chills, Reports fever(s) and Reports headache(s) ENT Ears, Nose, Mouth, and Throat: Reports system reviewed and no additional complaints, except as documented, Reports as per HPI, Reports headache(s), Reports nasal congestion and Reports nasal discharge Cardiovascular Cardiovascular: Reports system reviewed and no additional complaints, except as documented and Reports as per HPI Respiratory Respiratory: Reports system reviewed and no additional complaints, except as documented, Reports as per HPI, Denies shortness of breath, Denies chest congestion and Reports cough Gastrointestinal Gastrointestingal: Reports system reviewed and no additional complaints, except as documented and as per HPI Neurologic Neurologic: Reports headache(s) Physical Exam General General appearance: alert and in no apparent distress ENT ENT exam: Present mucous membranes moist Expanded ENT Exam Nose exam: Present sinus tenderness Throat exam: Present other (Pharyngeal erythema noted with PND) Chest Chest inspection: Present normal inspection and symmetric chest wall rise Respiratory Respiratory exam: Present normal lung sounds bilaterally; Absent respiratory distress or wheezes Cardiovascular Cardiovascular exam: Present regular rate, normal rhythm and normal heart sounds Abdominal Exam Abdominal exam: Present soft and normal bowel sounds; Absent distention or tenderness Neurological Exam Neurological exam: Present alert, oriented X3 and normal gait Medical Decision Making Shahbaz Inquiry Pt receiving controlled substance: No Shahbaz was queried for this patient: No Vital Signs: 04/25/23 15:45 Temperature 98.7 F Temperature Source Oral Pulse Rate [Left Brachial] 92 H Respiratory Rate 19 Blood Pressure [Left Arm] 120/67 Blood Pressure Mean [Left Arm] 84 Blood Pressure Source [Left Arm] Automatic Cuff Blood Pressure Position [Left Arm] Sitting 02 Sat by Pulse Oximetry 96 Oxygen Delivery Method Room Air Lab Data Lab results reviewed: Yes I reviewed the patient's lab results.
[2023-04-25 16:13] VITALS: BP 120/67; PULSE 92; RESP 19; TEMP 37.1; O2SAT 96
[2023-04-25 16:22] LABS: UTC Influenza A Antigen Negative (Negative); UTC Influenza B Antigen Negative (Negative)
[2023-04-25 16:55] LABS: Adenovirus,PCR Not Detected (NotDetected); Bordetella Pertussis Not Detected (NotDetected); Chlamydophila Pneumoniae, PCR Not Detected (NotDetected); Coronavirus 19, PCR Not Detected (NotDetected); Coronavirus 229E Not Detected (NotDetected); Coronavirus NL63 Not Detected (NotDetected); Coronavirus OC43 Not Detected (NotDetected); Coronovirus HKU1,PCR Not Detected (NotDetected); Human Metapneumovirus Not Detected (NotDetected); Influenza A, PCR Not Detected (NotDetected); Influenza AH1, PCR Not Detected (NotDetected); Influenza AH3,PCR Not Detected (NotDetected); Influenza B, PCR Not Detected (NotDetected); Mycoplasma Pneumoniae, PCR Not Detected (NotDetected); Parainfluenza 1, PCR Not Detected (NotDetected); Parainfluenza 2, PCR Not Detected (NotDetected); Parainfluenza 3, PCR Not Detected (NotDetected); Parainfluenza 4, PCR Not Detected (NotDetected); Respiratory Syncytial Virus Not Detected (NotDetected); Rhinovirus/Enterovirus Not Detected (NotDetected)
[2023-04-25 18:17] LABS: Influenza AH1, 2009 Detected (NotDetected)
== END 2023-04-25 16:42 | disposition home or self-care (01) ==
PROVIDERS: Emergency Provider Nurse Practitioner; PCP Internal Medicine
DX: J10.1 Influenza due to other identified influenza virus with other respiratory manifestations (principal); J20.9 Acute bronchitis, unspecified; R50.9 Fever, unspecified; R05.9 Cough, unspecified; R51.9 Headache, unspecified; R09.81 Nasal congestion; M79.18 Myalgia, other site
CPT/HCPCS: 87581; 87632; 87635; 87798; 87804; 99212; 99214; G0463

== ENCOUNTER 2023-04-28 14:52 | Emergency (ER) | payer OTHER, SELFPAY ==
[2023-04-28 14:54] VITALS: BP 107/60; PULSE 120; RESP 20; TEMP 38; O2SAT 94; BMI 21.2
--- NOTE | 2023-04-28 15:32 | HMH.EDGENADL ---
Discharge Plan Disposition Patient Disposition: Home, Self-Care Condition: Fair Prescriptions Prescriptions: New doxycycline hyclate 100 mg capsule 100 mg PO BID 7 Days Qty: 14 0RF ondansetron 4 mg tablet,disintegrating 4 mg PO Q8H PRN (Reason: nausea and vomiting) 5 Days Qty: 10 0RF Discontinued doxycycline hyclate 100 mg tablet 100 mg PO BID Qty: 28 0RF No Action ipratropium-albuterol 0.5 mg-3 mg(2.5 mg base)/3 mL solution for nebulization 3 ml inhalation QID PRN (Reason: shortness of breath or wheezing) 90 Days Qty: 270 3RF benzonatate 150 mg capsule 150 mg PO TID PRN (Reason: cough) fluticasone propionate [Flonase Allergy Relief] 50 mcg/actuation spray,suspension 2 spray intranasal DAILY 90 Days Qty: 16 2RF Rx Instructions: administer into each nostril azelastine 137 mcg (0.1 %) aerosol,spray 2 spray intranasal HS 90 Days Qty: 30 3RF Rx Instructions: administer into each nostril Trelegy Ellipta 200-62.5-25 mcg blister with device 1 inh inhalation DAILY 90 Days Qty: 90 3RF Santyl 250 unit/gram ointment 1 applic topical QDAY Qty: 30 1RF diclofenac sodium 1 % gel 2 g topical QID Qty: 100 0RF Rx Instructions: apply to single elbow, wrist or hand; for hand includes palm/fingers/back of hand bisoprolol fumarate 5 mg tablet 7.5 mg PO DAILY 90 Days Qty: 135 3RF clonazepam [Klonopin] 0.5 mg tablet 0.5 mg PO BID Qty: 60 1RF gabapentin 300 mg capsule See Rx Instructions .Route .COMPLEX Qty: 120 1RF Rx Instructions: Take one tablet twice dailly and 2 tablets at night; oxycodone-acetaminophen [Percocet] 7.5-325 mg tablet 1 tab PO BID Qty: 60 0RF lidocaine 5 % adhesive patch,medicated 1 patch topical DAILY Qty: 30 2RF Rx Instructions: Leave on most painful area for up to 12 hrs lidocaine 5 % adhesive patch,medicated See Rx Instructions .ROUTE .COMPLEX Qty: 30 1RF Dose Instruction: APPLY 1 PATCH TOPICALLY ONCE DAILY AND LEAVE ON MOST PAINFUL AREA FOR UP TO 12 HOURS Rx Instructions: APPLY 1 PATCH TOPICALLY ONCE DAILY AND LEAVE ON MOST PAINFUL AREA FOR UP TO 12 HOURS albuterol sulfate [ProAir HFA] 90 mcg/actuation HFA aerosol inhaler See Rx Instructions .ROUTE .COMPLEX Qty: 8.5 2RF Dose Instruction: INHALE TWO PUFFS BY MOUTH THREE TIMES DAILY NEEDED FOR SHORTNESS OF BREATH OR wheezing Rx Instructions: INHALE TWO PUFFS BY MOUTH THREE TIMES DAILY NEEDED FOR SHORTNESS OF BREATH OR wheezing nystatin 100,000 unit/mL suspension 10 ml PO QID 5 Days Qty: 200 0RF Rx Instructions: swish and swallow aspirin 81 mg tablet,delayed release (DR/EC) 81 mg PO DAILY Qty: 90 1RF Rx Instructions: 81 mg orally daily; atorvastatin 40 mg tablet 40 mg PO DAILY Qty: 90 3RF clopidogrel [Plavix] 75 mg tablet 75 mg PO DAILY Qty: 30 11RF pantoprazole 40 mg tablet,delayed release (DR/EC) See Rx Instructions .ROUTE .COMPLEX Qty: 90 0RF Dose Instruction: Take 1 tablet by mouth once daily Rx Instructions: Take 1 tablet by mouth once daily azithromycin [Zithromax Z-Horacio] 250 mg tablet See Rx Instructions .ROUTE .COMPLEX 5 Days Qty: 6 0RF Rx Instructions: For 250 mg dose pack: take 500 mg today (day 1), then 250 mg for 4 days (days 2-5) prednisone [prednisone] 20 mg tablet 20 mg PO BID 5 Days Qty: 10 0RF guaifenesin [Mucinex] 600 mg tablet extended release 12hr 600 mg PO BID PRN (Reason: cough) Qty: 20 0RF Referrals Follow up/Referrals: Mario Llamas DO [Primary Care Provider] - See instructions Activity Restrictions/Add. Instructions Additional Instructions/Restrictions: Please take the nausea medication as needed and the additional antibiotic. Please continue to stay hydrated. Please return with any new or worsening symptoms. Please follow-up with your primary care doctor. Clinical Impressions Clinical Impression: Community acquired pneumonia Qualifiers: Laterality: right Lung location: lower lobe of lung Qualified Code(s): J18.9 - Pneumonia, unspecified organism Instructions Patient Instructions: Influenza Discharge ED Provider: Anand Valerio General Adult HPI General Chief complaint: Upper Respiratory Infection Stated complaint: vomiting Time Seen by Provider: 04/28/23 15:32 Mode of Arrival: Ambulatory Source of Information: Patient Limitations: No Limitations Description of Symptoms (Recalled from ER Triage Doc. by RN): Patient states that she has Flu A diagnosed on Monday and just isn't getting any better. States she thinks that she may have pneumonia. States that she hasn't been able to eat or drink. States she took Tylenol this morning. History of Present Illness HPI narrative: Patient presents with nausea, vomiting, shortness of air, gradual in onset, constant, worsening, since diagnosis of influenza a diagnosed earlier this week. She was prescribed azithromycin, no antivirals were prescribed. Patient has history of COPD, pneumonia, smoking history, and has had similar symptoms before. She has been compliant with azithromycin. She denies any associated chest pain. No known sick contacts. No recent travel. She has had markedly decreased p.o. intake of solids but has been able to get some liquids down. No oxygen requirements. Related Data Home Medications Medication Instructions Recorded Confirmed benzonatate 150 mg capsule 150 mg PO TID PRN cough 05/31/22 03/28/23 Previous Rx's Medication Instructions Recorded ipratropium 0.5 mg-albuterol 3 mg 3 ml inhalation QID PRN shortness 12/21/21 (2.5 mg base)/3 mL nebulization of breath or wheezing 90 days #270 soln mL diclofenac sodium 1 % topical gel 2 g topical QID #100 grams 05/02/22 lidocaine 5 % topical patch See Rx Instructions .Route 05/30/22 .COMPLEX #30 patches albuterol sulfate 90 mcg/actuation See Rx Instructions .Route 07/13/22 aerosol inhaler (ProAir HFA) .COMPLEX #8.5 grams nystatin 100,000 unit/mL oral 10 ml PO QID 5 days #200 mL 07/26/22 suspension azelastine 137 mcg (0.1 %) nasal 2 spray intranasal HS 90 days #30 09/22/22 spray aerosol mL fluticasone fur. 200 mcg-umeclid 1 inh inhalation DAILY 90 days #90 09/22/22 62.5 mcg-vilant 25 mcg ea inhalat.powder (Trelegy Ellipta) fluticasone propionate 50 2 spray intranasal DAILY 90 days 09/22/22 mcg/actuation nasal #16 grams spray,suspension (Flonase Allergy Relief) aspirin 81 mg tablet,delayed 81 mg PO DAILY thiiner #90 tabs 11/23/22 release atorvastatin 40 mg tablet 40 mg PO DAILY #90 tabs 11/23/22 clopidogrel 75 mg tablet (Plavix) 75 mg PO DAILY #30 tabs 12/13/22 pantoprazole 40 mg tablet,delayed See Rx Instructions .Route 01/27/23 release .COMPLEX #90 tabs lidocaine 5 % topical patch 1 patch topical DAILY pain #30 ea 02/17/23 clonazepam 0.5 mg tablet (Klonopin) 0.5 mg PO BID #60 tabs 03/08/23 gabapentin 300 mg capsule See Rx Instructions .Route 03/08/23 .COMPLEX Pain #120 caps oxycodone-acetaminophen 7.5 mg-325 1 tab PO BID #60 tabs 03/08/23 mg tablet (Percocet) bisoprolol fumarate 5 mg tablet 7.5 mg PO DAILY 90 days #135 tabs 03/28/23 collagenase clostridium histo. 250 1 applic topical QDAY wound care 03/28/23 unit/gram topical ointment (Santyl) #30 grams azithromycin 250 mg tablet See Rx Instructions PO .COMPLEX 5 04/25/23 (Zithromax Z-Horacio) days #6 tabs guaifenesin 600 mg tablet, 600 mg PO BID PRN cough #20 tabs 04/25/23 extended release 12 hr (Mucinex) prednisone 20 mg tablet 20 mg PO BID 5 days #10 tabs 04/25/23 doxycycline hyclate 100 mg capsule 100 mg PO BID 7 days #14 caps 04/28/23 ondansetron 4 mg disintegrating 4 mg PO Q8H PRN nausea and 04/28/23 tablet vomiting 5 days #10 tabs Allergies Allergy/AdvReac Type Severity Reaction Status Date / Time fluoxetine [From Prozac] Allergy Intermediate I-RASH Verified 03/28/23 10:41 Penicillins Allergy Intermediate I-RASH Verified 03/28/23 10:41 tramadol AdvReac dizziness, Verified 03/28/23 10:41 sweats PFSH PFS Disclaimer: The information contained in this section may have been updated after the patient was seen, as this information can be updated by other users. 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 Tobacco abuse counseling Tobacco abuse counseling Tobacco abuse disorder Surgical History H/O total hysterectomy History of abdominal surgery History of cholecystectomy History of heart artery stent Family History Mother Lung cancer Social History Smoking Status: Unknown if ever smoked second hand exposure: No alcohol intake: never substance use type: denies use current occupational status: unemployed Travel in the last 8 weeks: None household members: significant other housing: house current occupation: [employer] current occupational exposures/hazards: No caffeine: Yes ROS Obtained: Yes Systems reviewed as appropriate & no additional complaints except as documented As per HPI Physical Exam General General appearance: alert, in no apparent distress and other (Fatigued appearing, but overall nontoxic) Head Head exam: atraumatic and normocephalic Eye Eye exam: Present normal appearance Neck Neck exam: Present normal inspection Chest Chest inspection: Present normal inspection and symmetric chest wall rise Respiratory Respiratory exam: Present normal lung sounds bilaterally and other (Bilateral rhonchi); Absent respiratory distress Cardiovascular Cardiovascular exam: Present regular rate and normal rhythm Abdominal Exam Abdominal exam: Present soft Neurological Exam Neurological exam: Present alert and oriented X3 Psychiatric Psychiatric exam: Present normal affect and normal mood Skin Skin exam: Present warm and dry Medical Decision Making Medical Records Medical records reviewed: Yes I reviewed the patient's medical records. Shahbaz Inquiry Pt receiving controlled substance: No Vital Signs: 04/28/23 14:54 04/28/23 18:21 Temperature 100.4 F H 100.0 F H Temperature Source Oral Oral Pulse Rate 100 H Pulse Rate [Radial] 120 H Respiratory Rate 20 20 Blood Pressure 107/60 L Blood Pressure [Right Arm] 107/60 L Blood Pressure Mean [Right Arm] 75 Blood Pressure Source Automatic Cuff Blood Pressure Source [Right Arm] Automatic Cuff Blood Pressure Position Sitting Blood Pressure Position [Right Arm] Sitting 02 Sat by Pulse Oximetry 94 L Oxygen Delivery Method Room Air Room Air Lab Data Lab Results 04/28/23 15:51: WBC 13.2 H, RBC 4.74, Hgb 15.1, Hct 45.2, MCV 95.3, MCH 31.9 H, MCHC 33.5, RDW 13.0, Plt Count 213, MPV 8.0, Neut % (Auto) 85.5 H, Lymph % (Auto) 7.6 L, Platte % (Auto) 5.8, Eos % (Auto) 0.5, Baso % (Auto) 0.6, Neut # (Auto) 11.3 H, Lymph # (Auto) 1.0, Platte # (Auto) 0.8, Eos # (Auto) 0.1, Baso # (Auto) 0.1, Total Counted 100, Neutrophils % (Manual) 88 H, Lymphocytes % (Manual) 11, Monocytes % (Manual) 1 L, Platelet Estimate Normal, RBC Morphology Normal, Sodium 131 L, Potassium 2.9 L*, Chloride 99, Carbon Dioxide 22, Anion Gap 12.9, BUN 13, Creatinine 1.20 H, Estimated Creat Clear 47, Estimated GFR 47 L, Est GFR ( Amer) 57 L, Glucose 132 H, Calcium 8.3 L, Total Bilirubin 0.3, AST 33, ALT 16, Alkaline Phosphatase 62, Troponin I < 0.01, Total Protein 7.2, Albumin 4.0, Globulin 3.2, Albumin/Globulin Ratio 1.3 04/28/23 15:51 04/28/23 15:51 Orders (Tests/Meds): ED MEDICATIONS Discontinued Medications Generic Name Dose Route Start Last Admin Trade Name aNsq PRN Reason Stop Dose Admin Lactated Ringer's 1,000 mls @ 999 mls/hr 04/28/23 15:41 04/28/23 15:56 Lactated Ringer's 1000 Ml Bag IV 04/28/23 16:41 999 mls/hr .Q1H1M ONE Administration Ondansetron HCl 4 mg 04/28/23 15:41 04/28/23 15:57 Ondansetron 4mg/2ml Vial IV 04/28/23 15:42 4 mg ONCE ONE Administration ORDERS Category Date Time Status XR chest 2V Stat Exams 04/28/23 15:42 Completed CBC w/Auto Diff [Complete Blood Count Auto Diff] Stat Lab 04/28/23 15:51 Completed CMP [Comprehensive Metabolic Panel] Stat Lab 04/28/23 15:51 Completed Troponin I Q2H Lab 04/28/23 15:51 Completed Medical Decision Narrative: Patient with history and exam per above presenting for evaluation of shortness of breath Diagnoses considered include COPD exacerbation, pleural effusion, noncardiogenic edema, pneumothorax, pneumonia, CHF exacerbation, ACS, anemia ED workup and treatment included: ED MEDICATIONS Discontinued Medications Generic Name Dose Route Start Last Admin Trade Name Yair PRN Reason Stop Dose Admin Lactated Ringer's 1,000 mls @ 999 mls/hr 04/28/23 15:41 04/28/23 15:56 Lactated Ringer's 1000 Ml Bag IV 04/28/23 16:41 999 mls/hr .Q1H1M ONE Administration Ondansetron HCl 4 mg 04/28/23 15:41 04/28/23 15:57 Ondansetron 4mg/2ml Vial IV 04/28/23 15:42 4 mg ONCE ONE Administration ORDERS Category Date Time Status XR chest 2V Stat Exams 04/28/23 15:42 Completed CBC w/Auto Diff [Complete Blood Count Auto Diff] Stat Lab 04/28/23 15:51 Completed CMP [Comprehensive Metabolic Panel] Stat Lab 04/28/23 15:51 Completed Troponin I Q2H Lab 04/28/23 15:51 Completed Labs were independently interpreted by me, significant for troponin undetectable, leukocytosis, hypokalemia to 2.9, creatinine 1.2 with baseline approximately 0.7-0.9 Imaging was independently visualized and interpreted by me, significant for right-sided lobar pneumonia Symptoms at this time are thought to be most consistent with pneumonia, in the setting of COPD and influenza A Discussed my clinical impression with the patient, she reports improvement of symptoms upon repeat evaluation and is able to tolerate p.o. intake. She exhibits no respiratory distress and has no supplemental oxygen requirement. Unfortunately she is out of the treatment window for her known diagnosis of influenza A. It appears that she has developed a secondary bacterial pneumonia. I discussed the possibility of inpatient management for her symptoms. After shared decision-making, she elects to be discharged at this time with strict return precautions and close outpatient follow-up. I have prescribed doxycycline for combination therapy and addition to her previous atypical pneumonia coverage. Return precautions were given. Critical Care Critical Care Time Critical Care Time: No
--- NOTE | 2023-04-28 15:42 | XR_ITS ---
FINAL REPORT CLINICAL HISTORY: Shortness of breath, hx flu A, cough COMPARISON: 07/13/2022 FINDINGS: Two views of the chest were obtained. The heart size and pulmonary vascularity are within normal limits. The mediastinum is normal. Mild bibasilar opacities are favored to represent atelectasis or scar. There is a mild right mid lung opacity worrisome for pneumonia. There is no pneumothorax. The bony thorax is intact. IMPRESSION: Mild right midlung opacity worrisome for pneumonia. Mild bibasilar opacities, favor atelectasis or scar. Reviewed, Interpreted and Dictated by Kale Valverde III, MD Transcribed by Rena Jaimes Authenticated and [facility]
[2023-04-28] MEDS: LACTATED RINGERS 1000ML 1,000 ML 999 ML IV (15:56)
[2023-04-28] MEDS: ONDANSETRON 4MG/2ML VIAL 4 MG IV (15:57)
[2023-04-28 16:00] LABS: Basophils # 0.1 K/mm3 (0-0.2); Basophils % 0.6 % (0.1-2.0); Eosinophils # 0.1 K/mm3 (0.0-0.4); Eosinophils % 0.5 % (0.1-12.0); Hematocrit 45.2 % (37.0-47.0); Hemoglobin 15.1 g/dL (12.2-16.2); Lymphocytes % 7.6 % (10-50); Mean Corpuscular HGB Conc 33.5 g/dL (31.8-35.4); Mean Corpuscular Hemoglobin 31.9 pg (27.0-31.2); Mean Corpuscular Volume 95.3 fl (81-99); Monocytes # 0.8 K/mm3 (0.1-1.0); Monocytes % 5.8 % (1.7-9.3); Neutrophils # 11.3 K/mm3 (1.8-7.8); Neutrophils % 85.5 % (37.0-80.0); Platelet Count 213 K/mm3 (142-424); Red Blood Count 4.74 M/mm3 (4.20-5.40); White Blood Count 13.2 K/mm3 (4.8-10.8)
[2023-04-28 16:05] LABS: MANUAL DIFFERENTIAL MANUAL DIFFERENTIAL (MANUAL DIFF)
[2023-04-28 16:16] LABS: Alanine Aminotransferase 16 U/L (12-78); Albumin/Globulin Ratio 1.3 (1.1-1.8); Alkaline Phosphatase 62 U/L (38-126); Anion Gap 12.9 mEq/L (5-15); Aspartate Amino Transferase 33 U/L (14-36); Bilirubin,Total 0.3 mg/dl (0.2-1.3); Blood Urea Nitrogen 13 mg/dl (7-17); Calcium 8.3 mg/dl (8.4-10.2); Carbon Dioxide 22 mmol/L (22.0-30.0); Chloride 99 mmol/L (98-107); Creatinine Clearance Estimated 47 mL/min (50-200); Estimated Glomerular Filt Rate 47 ml/min (>60); GFR (African American) 57 ML/MIN (>60); Globulin 3.2 g/dL (1.3-3.2); Glucose 132 mg/dl (74-100); Sodium 131 mmol/L (136-145); Total Protein,Serum 7.2 g/dl (6.3-8.2)
[2023-04-28 16:19] LABS: Potassium 2.9 mmoL/L (3.5-5.1)
[2023-04-28 16:21] LABS: Lymphocytes % 11 % (10-50); Monocytes % 1 % (2-9); Neutrophils % 88 % (42-76); RBC Morphology Normal; Total Cells Counted 100
[2023-04-28 16:22] LABS: Platelet Estimate Normal
[2023-04-28 16:33] LABS: Troponin I < 0.01 ng/ml (0.00-0.034)
[2023-04-28 18:21] VITALS: BP 107/60; PULSE 100; RESP 20; TEMP 37.8; O2SAT 95
== END 2023-04-28 18:21 | disposition home or self-care (01) ==
PROVIDERS: Emergency Medicine; Emergency Provider Emergency Medicine; PCP Internal Medicine
DX: J18.9 Pneumonia, unspecified organism (principal); R11.2 Nausea with vomiting, unspecified; R06.02 Shortness of breath; I25.10 Atherosclerotic heart disease of native coronary artery without angina pectoris; J44.9 Chronic obstructive pulmonary disease, unspecified; J10.1 Influenza due to other identified influenza virus with other respiratory manifestations; J10.2 Influenza due to other identified influenza virus with gastrointestinal manifestations; E87.6 Hypokalemia
CPT/HCPCS: 71046; 80053; 84484; 85007; 85025; 96361; 96374; 99285; J2405

== ENCOUNTER 2023-05-01 06:39 | Outpatient (CLI) | payer OTHER, SELFPAY | END 2023-05-01 23:59 | LOC: LAB.DROPOF 05-04 06:40 | PROVIDERS: PCP Family Medicine; Visit Provider Family Medicine | DX: J18.9 Pneumonia, unspecified organism (principal) ==

== ENCOUNTER 2023-05-03 13:12 | Outpatient (CLI) | payer OTHER, SELFPAY ==
[2023-05-03 19:13] LABS: Chloride 101 mmol/L (98-107); Sodium 141 mmol/L (136-145)
[2023-05-03 19:14] LABS: Potassium 3.5 mmoL/L (3.5-5.1)
[2023-05-03 19:16] LABS: Alanine Aminotransferase 16 U/L (12-78); Albumin Level 3.8 g/dl (3.5-5.0); Albumin/Globulin Ratio 1.2 (1.1-1.8); Alkaline Phosphatase 89 U/L (38-126); Anion Gap 14.5 mEq/L (5-15); Aspartate Amino Transferase 31 U/L (14-36); Bilirubin,Total 0.6 mg/dl (0.2-1.3); Blood Urea Nitrogen 14 mg/dl (7-17); Carbon Dioxide 29 mmol/L (22.0-30.0); Estimated Glomerular Filt Rate 75 ml/min (>60); GFR (African American) 91 ML/MIN (>60); Globulin 3.3 g/dL (1.3-3.2); Total Protein,Serum 7.1 g/dl (6.3-8.2)
[2023-05-03 19:17] LABS: Calcium 9.2 mg/dl (8.4-10.2); Glucose 93 mg/dl (74-100)
[2023-05-03 19:55] LABS: Amphetamine/Metha Screen,Urine Negative ng/ml (<1000); Barbiturates Screen,Urine Negative ng/ml (<200); Benzodiazepines Screen,Urine Negative ng/ml (<200); Cannabinoid Screen,Urine Negative ng/ml (<50); Cocaine Screen,Urine Negative ng/ml (<300); Methadone Screen,Urine Negative ng/ml (<300); Opiate Screen,Urine Positive ng/ml (<300); Phencyclidine Screen,Urine Negative ng/ml (<25)
[2023-05-09 15:11] LABS: Opiates Negative (Cutoff=100)
== END 2023-05-03 23:59 ==
PROVIDERS: PCP Family Medicine; Visit Provider Internal Medicine Pulmonary Disease
DX: Z79.899 Other long term (current) drug therapy (principal); R06.09 Other forms of dyspnea; J44.9 Chronic obstructive pulmonary disease, unspecified
CPT/HCPCS: 80053; 80307; 80361; 80365; 94762; G0480

== ENCOUNTER 2023-05-19 13:54 | Outpatient (CLI) | payer OTHER, SELFPAY ==
--- NOTE | 2023-05-19 13:54 | CT_ITS ---
FINAL REPORT TECHNIQUE: After the administration of intravenous contrast, axial images through the chest were performed by computed tomography.This study was performed with techniques to keep radiation doses as low as reasonably achievable, (ALARA). Individualized dose reduction techniques using automated exposure control or adjustment of mA and/or kV according to the patient''s size were employed. CLINICAL HISTORY: BUTT, chest pain COMPARISON: 04/10/2023 FINDINGS: There is no axillary adenopathy. There is no hilar or mediastinal adenopathy. The heart size is normal. There is no pericardial or pleural effusion. Limited images of the upper abdomen are unremarkable. No suspicious infiltrate or nodule identified. There is linear scarring in the medial right upper lobe. There are moderate changes of centrilobular emphysema. Calcified granulomas seen in the anterior left upper lobe. IMPRESSION: Moderate centrilobular emphysema. Reviewed, Interpreted and Dictated by Malcolm Tolliver MD Transcribed by Kelly Gonsales Authenticated and [facility]
[2023-05-19] MEDS: IOPAMIDOL-370 (76%);100ML BOTTLE 75 ML IV (14:19)
[2023-05-19] MEDS: SODIUM CHLORIDE 0.9% 10ML SYR (RAD ONLY) 10 ML IV (14:19)
== END 2023-05-19 23:59 ==
LOC: RAD 13:54
PROVIDERS: PCP Family Medicine; Visit Provider Family Medicine
DX: J43.2 Centrilobular emphysema (principal); J44.9 Chronic obstructive pulmonary disease, unspecified; R06.00 Dyspnea, unspecified
CPT/HCPCS: 71260; Q9967

== ENCOUNTER 2023-06-05 09:54 | Outpatient (CLI) | payer OTHER, SELFPAY | END 2023-06-05 23:59 | LOC: RT 09:55 | PROVIDERS: PCP Family Medicine; Visit Provider Internal Medicine Pulmonary Disease | DX: J44.9 Chronic obstructive pulmonary disease, unspecified (principal); F17.210 Nicotine dependence, cigarettes, uncomplicated | CPT/HCPCS: 94762 ==

== ENCOUNTER 2023-06-12 12:58 | Outpatient (CLI) | payer OTHER, SELFPAY ==
--- NOTE | 2023-06-12 13:01 | XR_ITS ---
FINAL REPORT CLINICAL HISTORY: SOB..cough..congestion since monday COMPARISON: 04/28/2023 FINDINGS: 2 views of the chest were obtained . The heart is normal in size. The mediastinum is within normal limits. The lungs are clear. There is no pneumothorax. Osseous structures are unremarkable. IMPRESSION: No acute cardiopulmonary process. Reviewed, Interpreted and Dictated by Malcolm Tolliver MD Transcribed by Anabel Calderon Authenticated and [facility]
== END 2023-06-12 23:59 ==
LOC: RAD 12:59
PROVIDERS: PCP Family Medicine; Visit Provider Internal Medicine Pulmonary Disease
DX: J18.9 Pneumonia, unspecified organism (principal); F17.210 Nicotine dependence, cigarettes, uncomplicated
CPT/HCPCS: 71046

== ENCOUNTER 2023-08-16 10:19 | Outpatient (CLI) | payer OTHER, SELFPAY ==
--- NOTE | 2023-08-16 10:21 | XR_ITS ---
FINAL REPORT CLINICAL HISTORY: Acute right hip pain COMPARISON: None FINDINGS: RIGHT HIP Two views of the right hip demonstrate no acute fracture or dislocation. The joint spaces appear normal. The visualized bony structures are well aligned. No soft tissue abnormality is seen. There is a right iliac stent noted. IMPRESSION: No acute bony abnormality. Reviewed, Interpreted and Dictated by Malcolm Tolliver MD Transcribed by KEYSHAWN Camp Authenticated and [facility]
--- NOTE | 2023-08-16 10:21 | XR_ITS ---
FINAL REPORT CLINICAL HISTORY: Acute left hip pain COMPARISON: None FINDINGS: LEFT HIP: 3 views of the left hip demonstrate no acute fracture or dislocation. The joint spaces appear normal. The visualized bony structures are well aligned. No soft tissue abnormality is seen. There is a right iliac stent noted. IMPRESSION: No acute bony abnormality. Reviewed, Interpreted and Dictated by Malcolm Tolliver MD Transcribed by KEYSHAWN Camp Authenticated and [facility]
== END 2023-08-16 23:59 | disposition home or self-care (01) ==
LOC: RAD 10:20
PROVIDERS: PCP Family Medicine; Visit Provider Family Medicine
DX: M25.551 Pain in right hip (principal); M25.552 Pain in left hip
CPT/HCPCS: 73502

== ENCOUNTER 2023-11-02 09:01 | Outpatient (CLI) | payer OTHER, SELFPAY ==
[2023-11-02 09:14] LABS: Basophils # 0.1 K/mm3 (0-0.2); Eosinophils # 0.3 K/mm3 (0.0-0.4); Eosinophils % 3.2 % (0.1-12.0); Hematocrit 39.7 % (37.0-47.0); Hemoglobin 13.9 g/dL (12.2-16.2); Lymphocytes # 1.8 K/mm3 (0.7-4.5); Lymphocytes % 21.2 % (10-50); Mean Corpuscular HGB Conc 35.1 g/dL (31.8-35.4); Mean Corpuscular Hemoglobin 34.9 pg (27.0-31.2); Mean Corpuscular Volume 99.5 fl (81-99); Mean Platelet Volume 7.8 fl (7.4-10.4); Monocytes # 0.5 K/mm3 (0.1-1.0); Monocytes % 5.7 % (1.7-9.3); Neutrophils # 5.9 K/mm3 (1.8-7.8); Platelet Count 307 K/mm3 (142-424); Red Blood Count 3.98 M/mm3 (4.20-5.40); Red Cell Distribution Width 13.7 % (11.5-17.5); White Blood Count 8.6 K/mm3 (4.8-10.8)
[2023-11-02 09:37] LABS: Chloride 109 mmol/L (98-107)
[2023-11-02 09:38] LABS: Potassium 4.1 mmoL/L (3.5-5.1); Sodium 142 mmol/L (136-145)
[2023-11-02 09:40] LABS: Alanine Aminotransferase 8 U/L (12-78); Albumin Level 4.1 g/dl (3.5-5.0); Alkaline Phosphatase 71 U/L (38-126); Anion Gap 9.1 mEq/L (5-15); Aspartate Amino Transferase 21 U/L (14-36); Bilirubin,Indirect 0.5 mg/dL (0.0-0.9); Bilirubin,Total 0.5 mg/dl (0.2-1.3); Bilirubin,Unconjugated 0.5 mg/dL (0.0-1.1); Blood Urea Nitrogen 5 mg/dl (7-17); Calcium 9.4 mg/dl (8.4-10.2); Carbon Dioxide 28 mmol/L (22.0-30.0); Cholesterol 118 mg/dl (140-200); Estimated Glomerular Filt Rate 75 ml/min (>60); GFR (African American) 90 ML/MIN (>60); Glucose 67 mg/dl (74-100); Magnesium 1.8 mg/dl (1.6-2.3); Total Protein,Serum 6.7 g/dl (6.3-8.2); Triglycerides 106 mg/dl (30-150); VLDL Cholesterol 21 mg/dL (0-40)
[2023-11-02 09:41] LABS: Chol/HDL Ratio 2.4 (1-3.5); HDL Cholesterol 50 mg/dl (40-60)
[2023-11-02 09:52] LABS: Direct LDL Cholesterol 43.16 mg/dL (100-129)
[2023-11-02 09:58] LABS: Free T4 (Free Thyroxine) 1.32 ng/dl (0.78-2.19)
[2023-11-02 10:11] LABS: Thyroid Stimulating Hormone 2.07 uIU/mL (0.465-4.68)
== END 2023-11-02 23:59 | disposition home or self-care (01) ==
LOC: LAB 09:02
PROVIDERS: PCP Family Medicine; Visit Provider Nurse Practitioner
DX: I77.9 Disorder of arteries and arterioles, unspecified (principal); I77.4 Celiac artery compression syndrome; I25.10 Atherosclerotic heart disease of native coronary artery without angina pectoris; E78.5 Hyperlipidemia, unspecified; I73.9 Peripheral vascular disease, unspecified; Z72.0 Tobacco use; Z71.6 Tobacco abuse counseling
CPT/HCPCS: 36415; 80048; 80061; 80076; 83735; 84439; 84443; 85025

== ENCOUNTER 2023-11-09 15:11 | Outpatient (CLI) | payer OTHER, SELFPAY ==
--- NOTE | 2023-11-09 15:19 | CT_ITS ---
FINAL REPORT TECHNIQUE: Thin section axial images were obtained from skull base to vertex without contrast. Coronal reconstruction images were obtained from the axial data. Exam was performed using dose reduction technique. CLINICAL HISTORY: chronic headaches FINDINGS: There is no mass effect or midline shift. There is no hydrocephalus. There is no intracranial hemorrhage. The posterior fossa is without acute abnormality. The basilar cisterns are preserved. Air-fluid level seen in the right maxillary sinus. Mastoid air cells are clear. Soft tissues are otherwise unremarkable. No acute osseous abnormality is identified. IMPRESSION: Right maxillary sinusitis. No acute intracranial abnormality. Reviewed, Interpreted and Dictated by Leann Ruiz MD Transcribed by Anabel Calderon Authenticated and . [facility]
== END 2023-11-09 23:59 | disposition home or self-care (01) ==
LOC: RAD 15:12
PROVIDERS: Visit Provider Family Medicine
DX: R51.9 Headache, unspecified (principal); G89.29 Other chronic pain
CPT/HCPCS: 70450

== ENCOUNTER 2023-11-27 08:00 | Outpatient (CLI) | payer OTHER, SELFPAY ==
--- NOTE | 2023-11-27 08:01 | CT_ITS ---
FINAL REPORT TECHNIQUE: Thin section axial CT images of the abdomen, pelvis and lower extremities were obtained with contrast. Multiplanar reformatted images were also obtained and reviewed. This study was performed with techniques to keep radiation doses as low as reasonably achievable, (ALARA). Individualized dose reduction techniques using automated exposure control or adjustment of mA and/or kV according to the patient's size were employed. CLINICAL HISTORY: claudication right leg/pad COMPARISON: None FINDINGS: ABDOMEN AND PELVIS: There is no abdominal aortic aneurysm or dissection. There is mild plaque present in the abdominal aorta. The celiac axis is incompletely imaged on this examination, however there is a stent present in the proximal celiac axis. There is a small focal dissection in the proximal superior mesenteric artery which does not produce significant stenosis. The right renal artery is unremarkable in appearance. There is calcified plaque at the origin of the right renal artery, with probable mild stenosis. The inferior mesenteric artery is patent. There is calcified plaque in the common iliac arteries bilaterally, and mild stenosis of the right common iliac artery. There is a right external iliac arterial stent present, patent. There are mild and moderate stenoses of the left common and external iliac arteries. The internal iliac arteries are patent. RIGHT LOWER EXTREMITY: There is mild stenosis of the proximal right common femoral artery. The right deep femoral artery is patent. The right popliteal artery is patent. There is three-vessel runoff to the distal lower leg. LEFT LOWER EXTREMITY: There is mild stenosis of the left common femoral artery with multiple small foci of stenosis in the superficial femoral artery. The left deep femoral artery is patent. The left popliteal artery is patent. There is three-vessel runoff to the distal lower leg. OTHER FINDINGS: The gallbladder has been surgically resected. The uterus has also been surgically resected. IMPRESSION: The celiac axis was incompletely imaged on this examination, however there is a stent present in the proximal celiac axis that appears patent. There is a small focal dissection in the proximal SMA without significant stenosis. There is calcified plaque at the origin of the left renal artery, probably producing mild stenosis. A right external iliac stent is patent, with mild stenosis of the right common iliac artery. There is mild stenosis in the common femoral arteries bilaterally. There are multifocal mild SFA stenoses in the left leg, without hemodynamically significant stenosis. There is three-vessel runoff to the ankles bilaterally. Reviewed, Interpreted and Dictated by Kale Valverde III, MD Transcribed by Grace Navas Authenticated and . [facility]
[2023-11-27] MEDS: SODIUM CHLORIDE 0.9% 10ML SYR (RAD ONLY) 10 ML IV (08:41)
[2023-11-27] MEDS: 0.9 % SODIUM CHLORIDE 50 ML VIAL IV (08:41)
[2023-11-27] MEDS: IOPAMIDOL-370 (76%);100ML BOTTLE 120 ML IV (08:41)
== END 2023-11-27 23:59 | disposition home or self-care (01) ==
LOC: RAD 08:01
PROVIDERS: PCP Family Medicine; Visit Provider Nurse Practitioner
DX: I73.9 Peripheral vascular disease, unspecified (principal); I77.4 Celiac artery compression syndrome; I25.10 Atherosclerotic heart disease of native coronary artery without angina pectoris; F17.210 Nicotine dependence, cigarettes, uncomplicated
CPT/HCPCS: 75635; Q9967

== ENCOUNTER 2023-11-29 09:00 | Outpatient (RCR) | payer OTHER, SELFPAY ==
--- NOTE | 2023-11-07 10:47 | HMH.PTOPEV ---
PT Outpatient Evaluation Rehab PT Outpatient Evaluation Start: 11/07/23 09:14 Freq: Status: Active Protocol: Document 11/07/23 10:05 DAVID (Rec: 11/07/23 10:47 DAVID [id number]) E-signed By Kameron Bhat, PT Outpatient Therapy Subjective History Subjective History Patient Arlin Hirsch is a 53 year old female presenting to physical therapy today with the chief complaint of LBP and L hip pain. Patient mentioned that in the morning she feels still and is hard to get moving initially. Her PMH includes but is not limited to a bulging disc and a pinched nerve. She also remembers previously pulling a muscle in her back but since then no other traumatic experiences have occurred to her knowledge . She currently rates her pain as a 3/10 but the pain has reached to a 8/10 a worst. She is an S[employer] ([employer]) and her occupation can be very demanding at times. She recently switched to PRN and has noticed a decrease in her pain. New diagnosis of cancer in past 12 No months? Chief Complaint Pain,Stiff Symptom Type Ache Symptoms Relieved By Rest/Positioning,OTC Meds, Prescription Meds Symptoms Aggravated By Supine,Sitting,Standing, Bending/Stooping,Physical Activity,Walking,Lifting Prior Functional Limitations None Current Functional Limitations Lifting,Housework,Driving, Sleeping,Standing,Sitting, Recreation Activity,Walking, Bending/Stooping Symptom Description Constant and Continuous Level of pain today (0-10) 3 Pain scale - at its best (0-10) 3 Pain scale - at its worst (0-10) 8 Lumbopelvic Eval Assistive device Assistive Devices None / NA Palapation tenderness left paraspinal tenderness Yes: 4/4 Range of Motion Lumbar Spine Active Flexion Range of 50 Motion (degrees) Lumbar Spine Active Extension Range of 9 Motion (degrees) Left Lumbar Spine Lateral Flexion Active 10 Range of Motion (degrees) Right Lumbar Spine Lateral Flexion 9 Active Range of Motion (degrees) Lumbar Spine ROM Limitations Soft Tissue Tightness,Pain Manual Muscle Test Bilateral Knee Extension Strength Grade 4- Good- Knee Flexion Strength Grade 4- Good- Hip Flexion Strength Grade 4- Good- Hip Abduction Strength Grade 3 Fair Hip Adduction Strength Grade 3 Fair Ankle Dorsiflexion Strength Grade 5 Normal Gastronemius/Soleus Strength Grade 5 Normal Special Tests Hip Chaparro (HELENE) Test Negative Left,Negative Right Unilateral Straight Leg Raise (Lasegue) Negative Left,Negative Right Test Lumbar [place] Distraction Test/Manual increased pain Traction Hip/Knee Eval Special Tests Hip Piriformis Test Negative Left,Negative Right Oswestry Index Section 1 Pain Intensity The pain comes and goes and is moderate Section 2 Personal Care (Washing,Dresing) change my way of washing or dressing in order to avoid pain Section 3 Lifting I can only lift very light weights at most Section 4 Walking I cannot walk more than one mile wihtout increasing pain Section 5 Sitting Pain prevents me from sitting for more than 1/2 hour Section 6 Standing I cannot stand more than 1/2 hour without increasing pain Section 7 Sleeping I get pain in bed, but it does not prevent me from sleeping well Section 8 Social Life My social life is normal and gives me no extra pain Section 9 Traveling I get some pain when traveling , but none of my usual forms of travel m Section 10 Changing Degreee of Pain My pain is neither getting better or worse Score and Risk Level Oswestry Sc 20 Oswestry Risk Level Moderate Disability Miscellaneous Dx PT Eval Objective Objective Patient is very tender with palpation of the L paraspinals it was noted and compared to the R side. Activities such as bending forward and distraction increase her pain. Outpatient Therapy Assessment Impairments Problems/Impairmments Palpation Tenderness,Impaired Range of Motion,Impaired Strength,Impaired Walking, Impaired Standing,Impaired Sitting,Impaired Driving, Impaired Lifting,Impaired Recreational Activities, Impaired Work Activities, Impaired Self Care/Self Management Prognosis Rehab Potential Good Comment Patient is appropriate at this time for skilled physical therapy to address her current limitations with ROM, strength, and body mechanics to improve her QOL. 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 Number of Weeks 8 Increase Range of Motion Yes: Lumbar extension to 0-15 Increase Strength Yes: MMT LE Hip Abd & Add to 5 /5 Improve Oswestry Score Yes: Score <12 Decrease Subjective C/O Pain Yes: Decrease pain of 07/01 to /10 during functional activities Patient to be Ind w/ Advanced HEP Yes Outpatient Therapy Plan of Care Treatment Plan May Include Therapeutic Exercise Including Home Yes Exercise Program Manual Therapy Techniques Yes Therapeutic Activities to Return to Yes Previous Functional/Work Level ADL/Self Care Education Yes Dry Needling Yes Thermal Modalities Yes Electrical Stimulation Yes Ultrasound/Phonophoresis Yes Eval/Re-Eval Yes Frequency Times per week 2 Duration Number of Weeks 8 Addendums This patient is a candidate for social No or vocational rehab? Patient/Guardian verbally acknowledges Yes understanding of treatment program and consents to further treatment? Patient/Guardian verbally acknowledges Yes understanding of diagnosis, prognosis and goals for treatment? Eval Complexity PT Charges 25857 - High Complexity Shoulder/Elbow Eval Shoulder Objective Measurements Elbow Objective Measurements PHYSICIAN CERTIFICATION: I certify the specified therapy services for Arlin Hirsch are required, authorized, and reviewed every 30 days.
== END 2023-11-29 09:05 | disposition home or self-care (01) ==
LOC: PT 09:00
PROVIDERS: Visit Provider Family Medicine
DX: M54.16 Radiculopathy, lumbar region (principal); M47.816 Spondylosis without myelopathy or radiculopathy, lumbar region; M62.830 Muscle spasm of back; M25.559 Pain in unspecified hip
CPT/HCPCS: 97010; 97014; 97163; 97530; G0283

== ENCOUNTER 2024-01-08 15:15 | Outpatient (CLI) | payer OTHER, SELFPAY ==
--- NOTE | 2024-01-08 15:18 | XR_ITS ---
FINAL REPORT TECHNIQUE: Chest PA & Lateral CLINICAL HISTORY: sob, wheeze COMPARISON: 06/12/2023 FINDINGS: 2 views of the chest were performed. The heart size is normal. The mediastinum is within normal limits. There are new linear opacities in the right lung base, scar versus atelectasis. There are also mild linear densities in the medial aspect of the upper lobes bilaterally. There are no pleural effusions. There is no pneumothorax. The bony thorax appears intact. IMPRESSION: New linear opacities in the right lung base, along with mild linear densities in the medial aspect of the upper lobes bilaterally, that may represent scar versus atelectasis. Reviewed, Interpreted and Dictated by Malcolm Tolliver MD Transcribed by Grace Navas Authenticated and [facility]
== END 2024-01-08 23:59 | disposition home or self-care (01) ==
LOC: RAD 15:15
PROVIDERS: PCP Family Medicine; Visit Provider Family Medicine
DX: J44.9 Chronic obstructive pulmonary disease, unspecified (principal); R06.02 Shortness of breath; J43.2 Centrilobular emphysema
CPT/HCPCS: 71046

== ENCOUNTER → 2024-02-16 08:00 | Outpatient (CLI) | payer OTHER, SELFPAY | LOC: SL 02-23 08:00 | PROVIDERS: PCP Family Medicine; Visit Provider Family Medicine | DX: R40.0 Somnolence (principal); R53.83 Other fatigue; R06.83 Snoring; D75.89 Other specified diseases of blood and blood-forming organs | CPT/HCPCS: G0399 ==

== ENCOUNTER 2024-02-28 16:00 | Outpatient (CLI) | payer OTHER, SELFPAY ==
[2024-02-28 18:26] LABS: Influenza A, PCR Not Detected (NotDetected); Influenza B, PCR Not Detected (NotDetected)
[2024-02-28 20:08] LABS: Coronavirus 19, PCR Detected (NotDetected)
== END 2024-02-28 23:59 | disposition home or self-care (01) ==
LOC: LAB.DROPOF 02-29 10:35
PROVIDERS: PCP Family Medicine; Visit Provider Family Medicine
DX: R68.89 Other general symptoms and signs (principal); N23 Unspecified renal colic; J06.9 Acute upper respiratory infection, unspecified; Z72.0 Tobacco use
CPT/HCPCS: 87086; 87636

== ENCOUNTER 2024-03-04 14:26 | Outpatient (CLI) | payer OTHER, SELFPAY ==
--- NOTE | 2024-03-04 14:29 | XR_ITS ---
FINAL REPORT CLINICAL HISTORY: dyspnea COMPARISON: 01/08/2024 FINDINGS: Two views of the chest were obtained. The heart size and pulmonary vascularity are within normal limits. The mediastinum is normal. Persistent bibasilar atelectasis is present. Biapical scarring is noted as well. There are large lung volumes consistent with changes of chronic obstructive pulmonary disease. There is no pneumothorax. The bony thorax is intact. IMPRESSION: Persistent bibasilar atelectasis when compared to the prior film of December 2023. Changes of chronic obstructive pulmonary disease again noted. Reviewed, Interpreted and Dictated by Kale Valverde III, MD Transcribed by Grace Navas Authenticated and [facility]
== END 2024-03-04 23:59 | disposition home or self-care (01) ==
LOC: RAD 14:26
PROVIDERS: PCP Family Medicine; Visit Provider Family Medicine
DX: J06.9 Acute upper respiratory infection, unspecified (principal); U07.1 COVID-19
CPT/HCPCS: 71046

== ENCOUNTER 2024-04-03 13:04 | Outpatient (POV) | payer OTHER, SELFPAY ==
[2024-04-03 14:12] VITALS: BP 138/72; PULSE 71; RESP 18; O2SAT 97; BMI 20.5
--- NOTE | 2024-04-03 14:13 | A.OFFVIS_ITS ---
HPI Data of Consult Patient: new to practice Consult date: 04/03/24 Requesting Physician: Merlene Darling APRN Primary Care Provider: Darya Watt APRN Consult Narrative Reason for consult: Low back pain, bilateral hip pain, bilateral leg pain History of present illness: Ms. Hirsch is a 53 year old female who presents today as a new patient. She rates her pain today a 5 out of 10. Patient states that she was a patient of ours prior back a few years ago. Patient states this is the same pain that she was seen as for then and that it has been intermittent. She describes it as an aching, throbbing sensation with numbness and tingling into her bilateral lower extremities. Patient states that it is all across to her low back and hips and goes down into her legs and is made worse with any increased activity or prolonged standing. Patient states that she was just wrapping presents while she was standing at the table yesterday and that seemed to really aggravate her overall pain. She does state the pain interferes with her ability to perform activities of daily living such as cooking and cleaning. Patient denies any prior surgery history or injection history. Patient states that previously that they had offered injections however she was not interested in this option. She states that they had even discussed spinal cord stimulator trial. Patient does state that she is still open to some of those options. She has tried oral medication such as Tylenol along with oral medications of gabapentin, Sheldon, oxycodone and Percocet from outside providers in the past. Patient was also tried on tramadol from our office in the past however this caused nausea and dizziness. Patient has been seen by neurosurgery and states that at that time they could not state whether the surgery would be beneficial and she elected not to proceed forward with it. Patient states she did just have physical therapy earlier this year and it made no additional improvement. She has tried home exercising and stretching on a regular basis for more than 12 weeks that was physician guided with no additional improvement. Patient is interested in any help we may be able to provide. Patient denies any recent imaging except for the last 1 in our system. Her Shahbaz has been reviewed and is appropriate. CC: Merlene Darling APRN [facility] Disclaimer: The information contained in this section may have been updated after the patient was seen, as this information can be updated by other users. 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 Edema of soft tissue of right ankle region Dyspnea Foot sprain Right carotid bruit CAD (coronary artery disease) Left arm numbness Surgical History History of cholecystectomy History of abdominal surgery H/O total hysterectomy History of heart artery stent Family History Mother Lung cancer Social History Smoking Status: Current every day smoker tobacco type: cigarettes packs per day: 1 second hand exposure: No alcohol intake: never substance use type: denies use current occupational status: unemployed Travel in the last 8 weeks: None household members: significant other housing: house current occupation: [employer] current occupational exposures/hazards: No caffeine: Yes Review of Systems Review of Systems Review of systems:: pertinent systems reviewed and negative unless documented below Review of systems (narrative): Review of Systems: General: No recent weight changes, no fever, no sleep disturbances Respiratory: No cough, no shortness of air, no recurring pulmonary infections Cardiovascular/peripheral vascular: No chest pain, no palpitations, no edema, no shortness of breath Gastrointestinal: No new onset incontinence, normal bowel movements reported Genitourinary: No new onset incontinence Musculoskeletal: Low back pain, bilateral leg pain, bilateral hip pain Psychiatric: [Normal mood/affect] Neurological: [Denies weakness in extremities], [denies balance issues] Meds Home Medications and Allergies Home Medications ?Medication ?Instructions ?Recorded ?Confirmed ?Type diclofenac sodium 1 % topical gel 2 g topical QID #100 grams 05/02/22 03/15/24 Rx ondansetron 4 mg disintegrating 4 mg PO Q8H PRN nausea and 04/28/23 03/15/24 Rx tablet vomiting 5 days #10 tabs pantoprazole 40 mg tablet,delayed See Rx Instructions .Route 08/14/23 03/15/24 Rx release .COMPLEX #90 tabs ciclopirox 8 % topical solution 1 applic topical DAILY toenail 08/15/23 03/15/24 Rx fungus 3 months #6.6 mL aspirin 81 mg tablet,delayed 81 mg PO DAILY thiiner #90 tabs 08/16/23 03/15/24 Rx release atorvastatin 40 mg tablet 40 mg PO DAILY #90 tabs 08/16/23 03/15/24 Rx bisoprolol fumarate 5 mg tablet 7.5 mg (1.5 x 5 mg) PO DAILY 90 08/16/23 03/15/24 Rx days #135 tabs clopidogrel 75 mg tablet (Plavix) 75 mg PO DAILY #90 tabs 08/16/23 03/15/24 Rx fluticasone propionate 50 2 spray intranasal DAILY 90 days 08/16/23 03/15/24 Rx mcg/actuation nasal #16 grams spray,suspension (Flonase Allergy Relief) lidocaine 5 % topical patch 1 patch topical DAILY pain #30 ea 08/16/23 03/15/24 Rx azelastine 137 mcg (0.1 %) nasal 2 spray intranasal HS 90 days #30 11/10/23 03/15/24 Rx spray mL cetirizine 10 mg tablet (All Day 10 mg PO DAILY #90 tabs 11/10/23 03/15/24 Rx Allergy (cetirizine)) levalbuterol tartrate 45 2 inh inhalation Q6H PRN shortness 11/22/23 03/15/24 Rx mcg/actuation aerosol inhaler of breath or wheezing 90 days #15 (Xopenex HFA) grams gabapentin 300 mg capsule See Rx Instructions .Route 12/13/23 03/15/24 Rx .COMPLEX Pain #120 caps oxycodone-acetaminophen 5 mg-325 1 tab PO DAILY PRN pain #30 tabs 12/14/2302/23 Rx mg tablet (Percocet) mupirocin 2 % topical ointment 1 applic topical BID infection 14 01/10/24 03/15/24 Rx days #15 grams pgsplmslcuqlanh-tuutvsqxbhriouq-BK 10 ml PO Q6H #118 mL 03/04/24 03/15/24 Rx 2 mg-30 mg-10 mg/5 mL oral syrup (Bromfed DM) ipratropium 0.5 mg-albuterol 3 mg 3 ml inhalation QID PRN shortness 03/04/24 03/15/24 Rx (2.5 mg base)/3 mL nebulization of breath or wheezing 90 days #270 soln mL levofloxacin 250 mg tablet 250 mg PO DAILY 10 days #10 tabs 03/04/24 03/15/24 Rx fluticasone fur. 200 mcg-umeclid 1 inh inhalation DAILY 90 days #90 03/25/24 Rx 62.5 mcg-vilant 25 mcg ea inhalat.powder (Trelegy Ellipta) New Prescriptions to Start Prescriptions: Allergies Allergy/AdvReac Type Severity Reaction Status Date / Time fluoxetine (From Signal Patterns) Allergy Intermediate I-RASH Verified 03/15/24 10:21 Penicillins Allergy Intermediate I-RASH Verified 03/15/24 10:21 tramadol AdvReac dizziness, Verified 03/15/24 10:21 sweats Objective Narrative: Physical Exam: General: Alert and oriented x3, no acute distress, pleasant and cooperative Lungs: Respirations even and unlabored, symmetrical chest expansion Eyes: PERRL Musculoskeletal: Flexion and extension of lumbar [spine] somewhat guarded secondary to pain, [antalgic gait noted] positive bilateral leg raise Neurological: Speech clear, no gross sensory deficit Additional findings Additional findings: FINDINGS: Multiplanar MR imaging of the lumbar spine was performed without contrast. On the sagittal T2-weighted images, disc degeneration is seen at several levels. The vertebral alignment is normal. Mild endplate changes are noted at several levels. There is no evidence of fracture. No bony mass is identified. The conus has an unremarkable appearance. No significant canal stenosis is identified. L1-2: An annular bulge is present. There is no significant canal stenosis or neural foraminal narrowing. L2-3: An annular bulge is present. There is no significant canal stenosis or neural foraminal narrowing. L3-4: An annular bulge is present. There is mild bilateral neural foraminal narrowing. L4-5: An annular bulge is present. A right posterolateral annular tear is present. There is moderate to severe bilateral neural foraminal narrowing. L5-S1: An annular bulge is present. A small broad-based left paracentral disc protrusion is present which contacts the left S1 nerve root. There is mild right and moderate left neural foraminal narrowing. IMPRESSION: Multilevel degenerative disc disease and spondylosis as described. Broad-based left paracentral L5-S1 disc protrusion contacting the left S1 nerve root. 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 Patient has tried and failed conservative therapy including recent physical therapy and continued at home stretching and exercise guided by physicians with no additional relief. I did discuss with the patient that I do believe she would benefit from a lumbar epidural steroid injection. Patient did previously have severe narrowing at the L4-L5 level. I have recommended that we go and at this level. Patient is currently on Plavix written by Dr. Coelho's office and we will reach out to him to confirm she can stop this medication prior to this procedure. I will also order a psychological evaluation and if she is deemed an appropriate candidate we will proceed forward with the stimulator trial at a later date. Patient will be scheduled for a LESI L4-L5 under fluoroscopy. Will also order the patient a compounded cream and send in a 2-week dose of baclofen 5 mg 3 times daily. Patient has been instructed to contact the clinic with any concerns before the next appointment. Dr. Crouch has reviewed this note and agrees with this plan of care. This note was dictated using voice recognition software and make contain errors or omissions. All injections are used with Lidocaine or Bupivacaine and Depo Medrol.
== END 2024-04-03 23:59 | disposition home or self-care (01) ==
PROVIDERS: PCP Family Medicine; Visit Provider Nurse Practitioner Family
DX: M47.26 Other spondylosis with radiculopathy, lumbar region (principal); G89.4 Chronic pain syndrome; Z73.89 Other problems related to life management difficulty; F17.210 Nicotine dependence, cigarettes, uncomplicated; Z79.899 Other long term (current) drug therapy
CPT/HCPCS: 99202; G0463

== ENCOUNTER 2024-04-25 10:21 | Outpatient (CLI) | payer OTHER, SELFPAY ==
--- NOTE | 2024-04-25 10:27 | CA_ITS ---
FINAL REPORT CLINICAL HISTORY: Right lower extremity pain and swelling FINDINGS: DUPLEX VENOUS SONOGRAPHY OF THE RIGHT LOWER EXTREMITY Multiple transverse and longitudinal scans were performed of the femoropopliteal deep venous system, with augmentation and compression maneuvers. FINDINGS: Normal phasic flow was noted in the visualized deep venous system. No intraluminal increased echogenicity is noted to suggest thrombus. There is normal compression and augmentation of the venous structures. No abnormal venous collaterals are seen. IMPRESSION: No evidence of deep venous thrombosis of the right lower extremity. Reviewed, Interpreted and Dictated by Leann Ruiz MD Transcribed by Donna Salazar Authenticated and [facility]
== END 2024-04-25 23:59 | disposition home or self-care (01) ==
LOC: RT 10:25
PROVIDERS: PCP Family Medicine; Visit Provider Family Medicine
DX: M79.661 Pain in right lower leg (principal); R60.9 Edema, unspecified
CPT/HCPCS: 93971

== ENCOUNTER 2024-05-07 08:22 | Day surgery (SDC) | payer OTHER, SELFPAY ==
[2024-05-07 08:44] VITALS: BP 138/71; PULSE 61; RESP 16; TEMP 36.4; O2SAT 100; BMI 20.1
[2024-05-07 09:20] VITALS: BP 158/77; PULSE 68; RESP 18; O2SAT 95
[2024-05-07] MEDS: methylPREDNISolone ACETATE 80MG/ML VIAL 80 MG (09:21)
--- NOTE | 2024-05-07 10:43 | EXP.PAIN.PRO ---
Procedure Date: 05/07/24 Time: 09:00 Anesthesiologist:: Chaparro Acuna CRNA Complications:: None Pre-procedure Diagnosis:: Degenerative disc lumbar spine multilevels. Lumbar radiculopathy. Post-procedure Diagnosis:: Same. Indications for Procedure:: Patient is a very pleasant 53-year-old female who comes to clinic today for lumbar epidural steroid injection at the L4-5 level. Patient describes low lumbar back pain as constant, dull, aching. Patient also reports bilateral hip and leg radicular symptoms. She rates her pain 7/10. Procedure Details:: Procedure: Lumbar epidural steroid injection under fluoroscopy Informed consent was obtained and the risks and benefits of the procedure were explained to the patient. The patient was taken to the procedure room and noninvasive monitors placed, including noninvasive blood pressure cuff and pulse oximeter. The back was viewed using C-arm Fluoroscopy and prepped using Chloraprep as a cleansing solution and the L4-L5 interspace was palpated. Skin and subcutaneous tissues were anesthetized using lidocaine 1.5% and a 25-gauge needle. After this, an 18-gauge Touhy epidural needle was placed into the L4-L5 interspace and advanced using fluoroscopic guidance and loss of resistance to air until the epidural space was encountered. After confirmation of needle placement in the epidural space, with dye, a solution containing normal saline, 3 mL and Depo-Medrol 80 mg were incrementally injected into the lumbar epidural space. The patient tolerated the procedure well with no complications. The patient was observed in the Pain Clinic and then discharged home neurologically intact. Plan and Disposition:: Patient was discharged without incident.
== END 2024-05-07 09:24 | disposition home or self-care (01) ==
LOC: SC.PAINP 08:22
PROVIDERS: PCP Family Medicine; Visit Provider Nurse Anesthetist, Certified Registered
DX: M51.16 Intervertebral disc disorders with radiculopathy, lumbar region (principal)
CPT/HCPCS: 62323; J1010

== ENCOUNTER 2024-05-20 10:37 | Outpatient (POV) | payer OTHER, SELFPAY ==
--- NOTE | 2024-05-20 11:04 | A.OFFVIS_ITS ---
[facility] Disclaimer: The information contained in this section may have been updated after the patient was seen, as this information can be updated by other users. Medical History (Updated 04/26/24 @ 15:09 by Kayli Rodgers [facility]) Pre-op evaluation Biliary stent obstruction Bronchitis Nasal congestion Maxillary sinusitis Chronic sinusitis Sprain of right ankle Community acquired pneumonia Acute sinusitis Hypokalemia COPD mixed type Open wound of left great toe Unspecified open wound of left great toe with damage to nail, initial encounter Pain of toe Onychocryptosis Eosinophilia Hyperlipidemia Encounter for screening for malignant neoplasm of lung in current smoker with 30 pack year history or greater Tobacco abuse disorder Tobacco abuse counseling Right middle lobe syndrome History of recurrent pneumonia COPD (chronic obstructive pulmonary disease) Exertional shortness of breath Encounter for Postoperative Care Edema of soft tissue of right ankle region Dyspnea Foot sprain Right carotid bruit CAD (coronary artery disease) Left arm numbness Surgical History History of cholecystectomy History of abdominal surgery H/O total hysterectomy Family History Mother Lung cancer Other Cancer Coronary artery disease Heart attack Hyperlipidemia Hypertension Thyroid disorder Social History Smoking Status: Current every day smoker tobacco type: cigarettes packs per day: 1 years smoked: 40 second hand exposure: No alcohol intake: never substance use type: denies use current occupational status: employed Travel in the last 8 weeks: None household members: family housing: house marital status: current occupation: [employer] current occupational exposures/hazards: No caffeine: Yes Have you lived/traveled outside [place] in past 30 days?: No Contact w/someone who lives/traveled outside [place] past 30 days?: No Exposure to someone with infectious disease in past 14 days?: No Do you have a fever (greater than 100.4 F or 38 C)?: No Have you tested positive for COVID-19: No Exposed to someone with COVID-19 in past 14 days?: No Do you have a sore throat?: No Do you have a cough?: No Do you have any weakness?: No Do you have any diarrhea?: No Are you experiencing any unusual bleeding?: No Do you have any muscle aches/pain?: No Do you have any abdominal pain?: No Are you experiencing loss of taste or smell?: No PM Subjective & Objective Subjective Subjective:: Patient is a pleasant 54-year-old female who presents today for follow-up of lumbar epidural steroid injection L4-L5 on 05/07/2024. She does state that she had about 50% improvement following this injection however it only lasted about 3 days. Patient feels like she is back to her baseline. Patient states she did have a fall on Monday due to the ice however she was having a different pain there in her back prior to this injury. She states that it is more prominent with certain movements such as bending. She denies any radiating symptoms with this pain and states it stays right there in her back. Patient does also state that she did have her psychological evaluation and would like to still proceed forward with the stimulator trial. Patient has tried and failed conservative therapy. Her Shahbaz has been reviewed and is appropriate. Review of Systems: General: No recent weight changes, no fever, no sleep disturbances Respiratory: No cough, no shortness of air, no recurring pulmonary infections Cardiovascular/peripheral vascular: No chest pain, no palpitations, no edema, no shortness of breath Gastrointestinal: No new onset incontinence, normal bowel movements reported Genitourinary: No new onset incontinence Musculoskeletal: Low back pain, leg pain Psychiatric: [Normal mood/affect] Neurological: [Denies weakness in extremities], [denies balance issues] Pain at rest (0-10 scale): 5 Objective Objective:: Physical Exam: General: Alert and oriented x3, no acute distress, pleasant and cooperative Lungs: Respirations even and unlabored, symmetrical chest expansion Eyes: PERRL Musculoskeletal: Flexion and extension of lumbar [spine] somewhat guarded secondary to pain, [antalgic gait noted] Neurological: Speech clear, no gross sensory deficit Has patient had previous pain injection?: Yes Percent improvement in pain since last injection: 50% Conservative treatment options previously tried: Home exercise plan Length of treatment: Longer than 12 weeks Meds Home Medications and Allergies Home Medications ?Medication ?Instructions ?Recorded ?Confirmed ?Type ondansetron 4 mg disintegrating 4 mg PO Q8H PRN nausea and 04/28/23 04/25/24 Rx tablet vomiting 5 days #10 tabs pantoprazole 40 mg tablet,delayed See Rx Instructions .Route 08/14/23 04/25/24 Rx release .COMPLEX #90 tabs aspirin 81 mg tablet,delayed 81 mg PO DAILY thiiner #90 tabs 08/16/23 04/25/24 Rx release atorvastatin 40 mg tablet 40 mg PO DAILY #90 tabs 08/16/23 04/25/24 Rx clopidogrel 75 mg tablet (Plavix) 75 mg PO DAILY #90 tabs 08/16/23 04/25/24 Rx fluticasone propionate 50 2 spray intranasal DAILY 90 days 08/16/23 04/25/24 Rx mcg/actuation nasal #16 grams spray,suspension (Flonase Allergy Relief) azelastine 137 mcg (0.1 %) nasal 2 spray intranasal HS 90 days #30 11/10/23 04/25/24 Rx spray mL cetirizine 10 mg tablet (All Day 10 mg PO DAILY #90 tabs 11/10/23 04/25/24 Rx Allergy (cetirizine)) levalbuterol tartrate 45 2 inh inhalation Q6H PRN shortness 11/22/23 04/25/24 Rx mcg/actuation aerosol inhaler of breath or wheezing 90 days #15 (Xopenex HFA) grams gabapentin 300 mg capsule See Rx Instructions .Route 12/13/23 04/25/24 Rx .COMPLEX Pain #120 caps ipratropium 0.5 mg-albuterol 3 mg 3 ml inhalation QID PRN shortness 03/04/24 04/25/24 Rx (2.5 mg base)/3 mL nebulization of breath or wheezing 90 days #270 soln mL fluticasone fur. 200 mcg-umeclid 1 inh inhalation DAILY 90 days #90 03/25/24 04/25/24 Rx 62.5 mcg-vilant 25 mcg ea inhalat.powder (Trelegy Ellipta) bisoprolol fumarate 5 mg tablet 10 mg PO DAILY 04/23/24 04/25/24 History levocetirizine 5 mg tablet 5 mg PO DAILY 04/25/24 04/25/24 History montelukast 10 mg tablet 10 mg PO DAILY 04/25/24 04/25/24 History oxycodone-acetaminophen 5 mg-325 1 tab PO DAILY PRN pain #30 tabs 05/02/24 Rx mg tablet (Percocet) New Prescriptions to Start Prescriptions: Allergies Allergy/AdvReac Type Severity Reaction Status Date / Time fluoxetine (From Prozac) Allergy Intermediate I-RASH Verified 04/25/24 09:44 Penicillins Allergy Intermediate I-RASH Verified 04/25/24 09:44 tramadol AdvReac dizziness, Verified 04/25/24 09:44 sweats Assessment and Plan *Assessment and plan (1) Chronic pain syndrome: Status: Acute Category: Medical Code(s): G89.4 - Chronic pain syndrome (2) Lumbar radiculopathy: Status: Chronic Category: Medical Code(s): M54.16 - Radiculopathy, lumbar region (3) Degenerative joint disease (DJD) of lumbar spine: Status: Chronic Category: Medical Code(s): M47.816 - Spondylosis without myelopathy or radiculopathy, lumbar region Plan Patient did have significant improvement following her lumbar epidural however it was very temporary. I did review over the patient's psychological evaluation findings and she was deemed an appropriate patient for the spinal cord stimulator trial. Risk and benefits were discussed with the patient and she would like to proceed forward with this plan of care. Patient has tried and failed conservative therapy including oral medications of gabapentin, [place], oxycodone, Percocet and tramadol as well as heat and ice and topicals. Patient has also done physical therapy with continued at home stretching exercise for longer than 12 weeks that was physician guided with no additional relief. Patient was counseled over the spinal cord stimulator trial and she would like to proceed forward. Patient is on blood thinner written by Dr. Coelho's office. We will confirm that she can stop this medication prior to this procedure. Patient will be submitted for a spinal cord stimulator under fluoroscopy. Patient has been instructed to contact the clinic with any concerns before the next appointment. Dr. Crouch has reviewed this note and agrees with this plan of care. This note was dictated using voice recognition software and make contain errors or omissions. All injections are used with Lidocaine, Bupivacaine and Depo Medrol. Occasionally urine drug screen is needed to verify patient's compliance with our office pain contract. This is ordered based off specific treatments related to chronic pain with the potential to abuse certain medications.
[2024-05-20 11:48] VITALS: BP 122/81; PULSE 60; RESP 14; O2SAT 100; BMI 20.1
[2024-05-20 12:57] LABS: Albumin Level 4.6 g/dl (3.5-5.0); Chloride 100 mmol/L (98-107); Potassium 4.2 mmoL/L (3.5-5.1); Sodium 135 mmol/L (136-145)
[2024-05-20 13:00] LABS: Alanine Aminotransferase 12 U/L (12-78); Albumin/Globulin Ratio 1.9 (1.1-1.8); Alkaline Phosphatase 80 U/L (38-126); Anion Gap 13.2 mEq/L (5-15); Aspartate Amino Transferase 25 U/L (14-36); Bilirubin,Total 0.5 mg/dl (0.2-1.3); Blood Urea Nitrogen 8 mg/dl (7-17); Calcium 9.2 mg/dl (8.4-10.2); Carbon Dioxide 26 mmol/L (22.0-30.0); Creatinine Clearance Estimated 92 mL/min (50-200); Estimated Glomerular Filt Rate 104 ml/min (>60); GFR (African American) 126 ML/MIN (>60); Globulin 2.4 g/dL (1.3-3.2); Glucose 78 mg/dl (74-100)
== END 2024-05-20 23:59 | disposition home or self-care (01) ==
LOC: SC.PAIN 10:38
PROVIDERS: PCP Family Medicine; Visit Provider Nurse Practitioner Family
DX: Z00.00 Encounter for general adult medical examination without abnormal findings (principal); G89.4 Chronic pain syndrome; M47.26 Other spondylosis with radiculopathy, lumbar region; F17.210 Nicotine dependence, cigarettes, uncomplicated; Z79.899 Other long term (current) drug therapy
CPT/HCPCS: 36415; 80053; 99212; G0463

== ENCOUNTER 2024-05-23 09:25 | Outpatient (CLI) | payer OTHER, SELFPAY ==
--- NOTE | 2024-05-23 09:26 | CT_ITS ---
FINAL REPORT TECHNIQUE: Axial CT images of the chest were obtained without contrast. Low-dose protocol was utilized. This study was performed with techniques to keep radiation doses as low as reasonably achievable (ALARA). Individualized dose reduction techniques using automated exposure control or adjustment of mA and/or kV according to the patient's size were employed. CLINICAL HISTORY: lung cancer screening current smoker 1 ppd x 40+ years COMPARISON: 05/19/2023 and 04/10/2023 FINDINGS: CT CHEST WITHOUT, LOW DOSE SCREENING CTDl vol(mGy): 2.90 DLP (mGy-cm): 106.03 There is no axillary adenopathy. There is no significant mediastinal mass or adenopathy. The heart size is normal. There is no pericardial or pleural effusion. Lung window images demonstrate no suspicious infiltrate or nodule. There is scarring in the medial upper lobes. There is linear density in the periphery of the right base probably due to atelectasis, which has increased since the previous exam. This is seen on image 55, series 3. Limited images of the upper abdomen reveal the gallbladder is surgically absent. IMPRESSION: Lung RADS category 1S. Recommend 12 month follow-up low-dose chest CT per Fleischner criteria. Modifier S: Atelectasis right base. Reviewed, Interpreted and Dictated by Malcolm Tolliver MD Transcribed by Alicja Mena Authenticated and [facility]
[2024-05-23] MEDS: ALBUTEROL 0.083% 2.5 MG/3 ML NEB IH (10:41)
== END 2024-05-23 23:59 | disposition home or self-care (01) ==
LOC: RAD 09:26
PROVIDERS: PCP Family Medicine; Visit Provider Internal Medicine Pulmonary Disease
DX: R06.09 Other forms of dyspnea (principal); F17.210 Nicotine dependence, cigarettes, uncomplicated
CPT/HCPCS: 71271; 94060; 94618; 94726; 94729; J7613

== ENCOUNTER 2024-08-05 09:55 | Outpatient (CLI) | payer OTHER, SELFPAY ==
[2024-08-05 10:21] VITALS: BMI 20.2
[2024-08-05 10:35] LABS: Basophils # 0.1 K/mm3 (0-0.2); Basophils % 0.8 % (0.1-2.0); Eosinophils # 0.2 K/mm3 (0.0-0.4); Eosinophils % 2.6 % (0.1-12.0); Hematocrit 40.4 % (37.0-47.0); Hemoglobin 13.7 g/dL (12.2-16.2); Lymphocytes % 22.2 % (10-50); Mean Corpuscular HGB Conc 33.9 g/dL (31.8-35.4); Mean Corpuscular Hemoglobin 32.5 pg (27.0-31.2); Mean Platelet Volume 8.8 fl (7.4-10.4); Monocytes # 0.5 K/mm3 (0.1-1.0); Monocytes % 5.2 % (1.7-9.3); Neutrophils # 6.3 K/mm3 (1.8-7.8); Nucleated Red Blood Cells # 0 10^3/uL; Nucleated Red Blood Cells % 0 %; Platelet Count 280 K/mm3 (142-424); Red Blood Count 4.21 M/mm3 (4.20-5.40); Red Cell Distribution Width-SD 46.4 fL; White Blood Count 9.1 K/mm3 (4.8-10.8)
[2024-08-05 11:34] LABS: Anion Gap 17.1 mEq/L (5-15); Blood Urea Nitrogen 6 mg/dl (7-17); Calcium 9.2 mg/dl (8.4-10.2); Carbon Dioxide 25 mmol/L (22.0-30.0); Chloride 103 mmol/L (98-107); Creatinine Clearance Estimated 79 mL/min (50-200); Estimated Glomerular Filt Rate 87 ml/min (>60); GFR (African American) 105 ML/MIN (>60); Glucose 93 mg/dl (74-100); Potassium 4.1 mmoL/L (3.5-5.1); Sodium 141 mmol/L (136-145)
== END 2024-08-05 23:59 | disposition home or self-care (01) ==
LOC: PREOP 09:56
PROVIDERS: PCP Family Medicine; Visit Provider Anesthesiology
DX: Z01.812 Encounter for preprocedural laboratory examination (principal)
CPT/HCPCS: 80048; 85025

== ENCOUNTER 2024-08-15 07:35 | Day surgery (SDC) | payer OTHER, SELFPAY ==
[2024-08-15 07:45] VITALS: BMI 19.8
[2024-08-15 07:51] VITALS: BP 161/82; PULSE 66; RESP 20; O2SAT 96
--- NOTE | 2024-08-15 08:10 | SUR.PREOP ---
Pt left and refused to go through with her procedure. Procedure cancelled, notified.
== END 2024-08-15 08:15 | disposition home or self-care (01) ==
LOC: CATHLAB 07:36
PROVIDERS: PCP Family Medicine; Visit Provider Internal Medicine
DX: I25.119 Atherosclerotic heart disease of native coronary artery with unspecified angina pectoris (principal); Z53.20 Procedure and treatment not carried out because of patient's decision for unspecified reasons; J44.9 Chronic obstructive pulmonary disease, unspecified; E78.5 Hyperlipidemia, unspecified; F17.210 Nicotine dependence, cigarettes, uncomplicated; Z86.16 Personal history of COVID-19; Z79.82 Long term (current) use of aspirin; Z88.0 Allergy status to penicillin; Z88.8 Allergy status to other drugs, medicaments and biological substances; Z79.02 Long term (current) use of antithrombotics/antiplatelets; Z79.899 Other long term (current) drug therapy; Z82.49 Family history of ischemic heart disease and other diseases of the circulatory system
CPT/HCPCS: 93459

== ENCOUNTER 2024-08-20 08:42 | Outpatient (CLI) | payer OTHER, SELFPAY ==
--- NOTE | 2024-08-20 08:30 | MR_ITS ---
FINAL REPORT CLINICAL HISTORY: Headaches. HEADACHE ON LEFT SIDE OF HEAD WHEN WAKING UP COMPARISON: CT dated 11/09/2023 FINDINGS: Multiplanar MR imaging of the brain was performed without and with contrast. There is no evidence of intracranial hemorrhage or mass. There is no Chiari malformation. No abnormal extra-axial fluid collection is seen. The ventricular size is within normal limits. There is no evidence of shift of the midline structures. The posterior fossa and brainstem have an unremarkable appearance. No area of abnormal restricted diffusion is identified. No abnormal contrast enhancement is seen. The paranasal sinuses are clear. The 7th and 8th nerve root complexes are intact. IMPRESSION: No acute intracranial abnormality identified. Reviewed, Interpreted and Dictated by Malcolm Tolliver MD Transcribed by Kelly Gonsales Authenticated and [facility]
[2024-08-20] MEDS: SODIUM CHLORIDE 0.9% 10ML SYR (RAD ONLY) 10 ML IV (09:30)
[2024-08-20] MEDS: GADOTERIDOL INJ 10ML SYRINGE 10 ML IV (09:30)
== END 2024-08-20 23:59 | disposition home or self-care (01) ==
LOC: RAD 08:43
PROVIDERS: PCP Family Medicine; Visit Provider Specialist
DX: R51.9 Headache, unspecified (principal); G89.29 Other chronic pain
CPT/HCPCS: 70553; A9576

== ENCOUNTER 2024-08-20 09:53 | Emergency (ER) | payer OTHER, SELFPAY ==
[2024-08-20 10:01] VITALS: BP 151/68; PULSE 68; RESP 18; TEMP 36.8; O2SAT 98; BMI 20.2
--- NOTE | 2024-08-20 10:04 | XR_ITS ---
FINAL REPORT CLINICAL HISTORY: lewft injury FINDINGS: LEFT ANKLE Three views were obtained. There is no fracture or dislocation. The joint spaces appear normal. No soft tissue abnormality is identified. IMPRESSION: No acute process. Reviewed, Interpreted and Dictated by Malcolm Tolliver MD Transcribed by Kelly Gonsales Authenticated and . [facility]
--- NOTE | 2024-08-20 10:04 | XR_ITS ---
FINAL REPORT CLINICAL HISTORY: left injury FINDINGS: LEFT FOOT Three views were obtained. There is no fracture or dislocation. There is a small accessory navicular. The joint spaces appear normal. No soft tissue abnormality is identified. IMPRESSION: No acute process. Reviewed, Interpreted and Dictated by Malcolm Tolliver MD Transcribed by Kelly Gonsales Authenticated and [facility]
--- NOTE | 2024-08-20 10:52 | ED_ITS ---
Discharge Plan Disposition Patient Disposition: Home, Self-Care Condition: Good Prescriptions Prescriptions: No Action clopidogrel [Plavix] 75 mg tablet 75 mg PO DAILY Qty: 90 11RF fluticasone propionate [Flonase Allergy Relief] 50 mcg/actuation spray,suspension 2 spray intranasal DAILY 90 Days Qty: 16 2RF Rx Instructions: administer into each nostril bisoprolol fumarate 5 mg tablet 10 mg PO DAILY montelukast 10 mg tablet 10 mg PO DAILY Patient Comments: TAKE 1 TABLET BY MOUTH ONCE DAILY levocetirizine 5 mg tablet 5 mg PO DAILY Patient Comments: TAKE 1 TABLET BY MOUTH ONCE DAILY rosuvastatin [Crestor] 40 mg tablet 40 mg PO DAILY Qty: 30 2RF levalbuterol tartrate [Xopenex HFA] 45 mcg/actuation HFA aerosol inhaler 2 inh inhalation Q6H PRN (Reason: shortness of breath or wheezing) 90 Days Qty: 15 3RF ipratropium-albuterol 0.5 mg-3 mg(2.5 mg base)/3 mL solution for nebulization 3 ml inhalation QID PRN (Reason: shortness of breath or wheezing) 90 Days Qty: 270 3RF ammonium lactate 12 % cream 1 applic topical BID 30 Days Qty: 385 2RF gabapentin 300 mg capsule See Rx Instructions .Route .COMPLEX Qty: 60 1RF Rx Instructions: Take one tablet twice dailly and 2 tablets at night; azelastine 137 mcg (0.1 %) spray,non-aerosol 2 spray intranasal HS 90 Days Qty: 30 2RF Rx Instructions: administer into each nostril pantoprazole 40 mg tablet,delayed release (DR/EC) See Rx Instructions .ROUTE BID Qty: 180 3RF Dose Instruction: Take 1 tablet by mouth once daily Rx Instructions: Take 1 tablet by mouth once daily twice a day; oxycodone-acetaminophen [Percocet] 5-325 mg tablet 1 tab PO DAILY PRN (Reason: pain) Qty: 20 0RF cetirizine [All Day Allergy (cetirizine)] 10 mg tablet 10 mg PO DAILY Qty: 90 0RF Trelegy Ellipta 200-62.5-25 mcg blister with device 1 inh inhalation DAILY 90 Days Qty: 90 2RF aspirin 81 mg tablet,delayed release (DR/EC) 81 mg PO DAILY Qty: 90 1RF Rx Instructions: 81 mg orally daily; ondansetron 4 mg tablet,disintegrating 4 mg PO Q8H PRN (Reason: nausea and vomiting) 5 Days Qty: 10 0RF Referrals Follow up/Referrals: Darya Watt APRN [Primary Care Provider] - See instructions Mayi Blanchard DPM [Staff Physician] - See instructions Activity Restrictions/Add. Instructions Additional Instructions/Restrictions: You were evaluated in the emergency department today. Please use the hard sole shoe to help offload weight from your foot and use crutches as needed to support weightbearing. Follow-up closely with podiatry for reassessment of your foot pain. Take Tylenol and ibuprofen as needed for pain. Rest, ice, and elevate your foot to reduce pain and swelling. Return to the emergency department for new or worsening symptoms Clinical Impressions Clinical Impression: Left foot pain Stand Alone Forms Stand Alone Forms: Work/School Release Instructions Patient Instructions: DI for Foot Sprain Print Language Print Language: Singaporean Discharge ED Provider: Merlene Montenegro General Adult HPI General Chief complaint: Extremity Injury, Lower Stated complaint: AO 08/19/24, inj left foot Time Seen by Provider: 08/20/24 10:06 Mode of Arrival: Ambulatory Source of Information: Patient Description of Symptoms (Recalled from ER Triage Doc. by RN): left ankle pain. hurts to put weight on it. pulses good. History of Present Illness HPI narrative: This patient is a 54-year-old female with a history of tobacco abuse, CAD, COPD presenting to the emergency department for evaluation concern for left foot injury. Patient reports that she kicked her lawnmower because part of it was falling off, and she has had pain in her left foot since. It is worse in her midfoot, she has difficulty walking and bearing weight secondary to pain. No numbness, tingling, or other concerns. No open wounds Related Data Home Medications ?Medication ?Instructions ?Recorded ?Confirmed bisoprolol fumarate 5 mg tablet 10 mg PO DAILY 04/23/24 08/05/24 levocetirizine 5 mg tablet 5 mg PO DAILY 04/25/24 08/05/24 montelukast 10 mg tablet 10 mg PO DAILY 04/25/24 08/05/24 Previous Rx's ?Medication ?Instructions ?Recorded ondansetron 4 mg disintegrating 4 mg PO Q8H PRN nausea and 04/28/23 tablet vomiting 5 days #10 tabs clopidogrel 75 mg tablet (Plavix) 75 mg PO DAILY #90 tabs 08/16/23 fluticasone propionate 50 2 spray intranasal DAILY 90 days 08/16/23 mcg/actuation nasal #16 grams spray,suspension (Flonase Allergy Relief) cetirizine 10 mg tablet (All Day 10 mg PO DAILY #90 tabs 11/10/23 Allergy (cetirizine)) ipratropium 0.5 mg-albuterol 3 mg 3 ml inhalation QID PRN shortness 03/04/24 (2.5 mg base)/3 mL nebulization of breath or wheezing 90 days #270 soln mL fluticasone fur. 200 mcg-umeclid 1 inh inhalation DAILY 90 days #90 03/25/24 62.5 mcg-vilant 25 mcg ea inhalat.powder (Trelegy Ellipta) levalbuterol tartrate 45 2 inh inhalation Q6H PRN shortness 05/30/24 mcg/actuation aerosol inhaler of breath or wheezing 90 days #15 (Xopenex HFA) grams rosuvastatin 40 mg tablet (Crestor) 40 mg PO DAILY #30 tabs 06/17/24 ammonium lactate 12 % topical cream 1 applic topical BID dry skin, 07/08/24 callus care 30 days #385 grams aspirin 81 mg tablet,delayed 81 mg PO DAILY thiiner #90 tabs 07/15/24 release azelastine 137 mcg (0.1 %) nasal 2 spray intranasal HS 90 days #30 08/05/24 spray mL gabapentin 300 mg capsule See Rx Instructions .Route 08/05/24 .COMPLEX Pain #60 caps oxycodone-acetaminophen 5 mg-325 1 tab PO DAILY PRN pain #20 tabs 08/05/24 mg tablet (Percocet) pantoprazole 40 mg tablet,delayed See Rx Instructions .Route BID 08/05/24 release #180 tabs Allergies Allergy/AdvReac Type Severity Reaction Status Date / Time fluoxetine (From Prozac) Allergy Intermediate I-RASH Verified 08/05/24 10:02 Penicillins Allergy Intermediate I-RASH Verified 08/05/24 10:02 tramadol AdvReac dizziness, Verified 08/05/24 10:02 sweats [facility] Disclaimer: The information contained in this section may have been updated after the patient was seen, as this information can be updated by other users. Medical History History of recurrent pneumonia Hammertoes of both feet Tailor's bunion of right foot Mass of skin of right foot Angina pectoris Abnormal abdominal CT scan Acute embolism and thrombosis of superficial vein of right arm Hyperglycemia Pre-op evaluation Biliary stent obstruction Bronchitis Nasal congestion Maxillary sinusitis Chronic sinusitis Sprain of right ankle Community acquired pneumonia Acute sinusitis Hypokalemia COPD mixed type Open wound of left great toe Unspecified open wound of left great toe with damage to nail, initial encounter Pain of toe Onychocryptosis Eosinophilia Hyperlipidemia Encounter for screening for malignant neoplasm of lung in current smoker with 30 pack year history or greater Tobacco abuse disorder Tobacco abuse counseling Right middle lobe syndrome History of recurrent pneumonia COPD (chronic obstructive pulmonary disease) Exertional shortness of breath Encounter for Postoperative Care Edema of soft tissue of right ankle region Dyspnea Foot sprain Right carotid bruit CAD (coronary artery disease) Left arm numbness Surgical History History of cholecystectomy History of abdominal surgery H/O total hysterectomy Family History Mother Lung cancer Other Cancer Coronary artery disease Heart attack Hyperlipidemia Hypertension Thyroid disorder Social History Smoking Status: Current every day smoker tobacco type: cigarettes packs per day: 1 years smoked: 40 second hand exposure: No alcohol intake: never substance use type: denies use current occupational status: employed Travel in the last 8 weeks?: None household members: family housing: house marital status: current occupation: [employer] current occupational exposures/hazards: No caffeine: Yes Have you lived/traveled outside US in past 30 days?: No Contact w/someone who lives/traveled outside US past 30 days?: No Exposure to someone with infectious disease in past 14 days?: No Do you have a fever (greater than 100.4 F or 38 C)?: No Have you tested positive for COVID-19?: No Exposed to someone with COVID-19 in past 14 days?: No Do you have a sore throat?: No Do you have a cough?: No Do you have any weakness?: No Do you have any diarrhea?: No Are you experiencing any unusual bleeding?: No Do you have any muscle aches/pain?: Yes Do you have any abdominal pain?: No Are you experiencing loss of taste or smell?: No Other Medical History Have you received the Flu Vaccine for this season: No Have you received the Pneumonia Vaccine: Yes ROS Obtained: Yes All systems reviewed & no additional complaints except as documented Physical Exam General General appearance: alert and in no apparent distress Head Head exam: atraumatic and normocephalic Eye Eye exam: Present normal appearance, PERRL and EOMI ENT ENT exam: Present normal exam, normal oropharynx, mucous membranes moist and normal external ear exam Neck Neck exam: Present normal inspection, full ROM and trachea midline; Absent tenderness Chest Chest inspection: Present normal inspection and symmetric chest wall rise; Absent tenderness Respiratory Respiratory exam: Present normal lung sounds bilaterally; Absent respiratory distress, wheezes, stridor or accessory muscle use Cardiovascular Cardiovascular exam: Present regular rate and normal rhythm Abdominal Exam Abdominal exam: Present soft; Absent distention, tenderness or guarding Extremities Exam Extremities exam: Present tenderness and normal capillary refill; Absent edema Expanded Lower Extremity Exam Left: Top foot image: 2 1. Tenderness to palpation, pain, and swelling. No open wounds. Neurovascularly intact distally Back Exam Back exam: Present normal inspection and full ROM; Absent tenderness Neurological Exam Neurological exam: Present alert, oriented X3 and CN II-XII intact; Absent motor sensory deficit Psychiatric Psychiatric exam: Present normal affect and normal mood Skin Skin exam: Present warm and dry Medical Decision Making Medical Records Medical records reviewed: Yes I reviewed the patient's medical records. Screening: Per USPSTF and CDC recommendations, given the prevalence of disease in our region, it is our hospital?s policy to screen for HIV and viral Hepatitis for all patients aged 18 and over and those with ongoing risk factors. Shahbaz Inquiry Pt receiving controlled substance: No Vital Signs: 08/20/24 10:01 08/20/24 11:00 08/20/24 11:30 Temperature 98.3 F Temperature Source Oral Pulse Rate 62 64 Pulse Rate [Right] 68 Respiratory Rate 18 17 Blood Pressure 139/71 125/69 Blood Pressure [Right Arm] 151/68 H Blood Pressure Mean 97 Blood Pressure Mean [Right Arm] 95 Blood Pressure Source 02 Sat by Pulse Oximetry 98 98 98 Oxygen Delivery Method Room Air Room Air Room Air 08/20/24 11:59 08/20/24 12:00 Temperature 98.3 F Temperature Source Oral Pulse Rate 62 58 L Pulse Rate [Right] Respiratory Rate 18 Blood Pressure 125/69 139/67 Blood Pressure [Right Arm] Blood Pressure Mean 98 Blood Pressure Mean [Right Arm] Blood Pressure Source Automatic Cuff 02 Sat by Pulse Oximetry 99 Oxygen Delivery Method Room Air Room Air Lab Data Lab results reviewed: Yes I reviewed the patient's lab results. Orders (Tests/Meds): ED MEDICATIONS Discontinued Medications Generic Name Dose Route Start Last Admin Trade Name Freq PRN Reason Stop Dose Admin Hydrocodone Bitart/Acetaminophen 1 tab 08/20/24 10:56 08/20/24 11:01 Hydrocodone/Apap 5/325 Mg Tablet PO 08/20/24 10:57 1 tab ONCE ONE Administration Ibuprofen 800 mg 08/20/24 10:56 08/20/24 11:01 Ibuprofen 400 Mg Tablet PO 08/20/24 10:57 800 mg ONCE ONE Administration ORDERS Category Date Time Status Foot XR left minimum 3 views [XR foot LT min 3V] Stat Exams 08/20/24 10:04 Completed XR ankle LT min 3V Stat Exams 08/20/24 10:04 Completed Medical Decision Narrative: In summary, this patient is a 54-year-old female presenting to the Emergency Department for evaluation of foot pain after kicking a part of her lawnmower. Differential diagnoses considered include but are not limited to fracture, contusion, strain/pain, neurovascular injury. Ruling out the most morbid conditions drove assessment. It should be noted patient's history includes cardiovascular history, COPD, tobacco abuse which likely is not at goal therapy. This complicates all aspects of care by increasing patient's risk for morbidity. On exam, the patient has tenderness and swelling to her midfoot of her left foot but no other obvious deformity. She is neurovascularly intact distally. No open wounds. Workup included x-rays of the left foot and ankle. I independently interpreted x-ray prior to the radiologist read and noted no acute fracture. Please see their read for final interpretation. Given that the patient has significant amount of soft tissue swelling and pain, I feel she would benefit from stabilization with hard soled shoe and crutches for supportive care. She was given these as well as instructions for supportive management as an outpatient. I also advised that she follow-up closely with podiatry for reassessment. Strict return precautions were given. Critical Care Critical Care Time Critical Care Time: No
[2024-08-20 11:00] VITALS: BP 139/71; PULSE 62; RESP 17; O2SAT 98
[2024-08-20] MEDS: HYDROCODONE/APAP 5/325 MG TABLET 1 TAB PO (11:01)
[2024-08-20] MEDS: IBUPROFEN 400 MG TABLET 800 MG PO (11:01)
[2024-08-20 11:30] VITALS: BP 125/69; PULSE 64; O2SAT 98
[2024-08-20 11:59] VITALS: BP 125/69; PULSE 62; RESP 18; TEMP 36.8; O2SAT 96
[2024-08-20 12:00] VITALS: BP 139/67; PULSE 58; O2SAT 99
== END 2024-08-20 12:16 | disposition home or self-care (01) ==
PROVIDERS: Emergency Provider Emergency Medicine; PCP Family Medicine
DX: M79.672 Pain in left foot (principal); W22.8XXA Striking against or struck by other objects, initial encounter
CPT/HCPCS: 73610; 73630; 99284

== ENCOUNTER → 2024-09-13 14:46 | Outpatient (CLI) | payer OTHER, SELFPAY | LOC: SL 09-19 14:48 | PROVIDERS: Visit Provider Specialist | DX: G47.33 Obstructive sleep apnea (adult) (pediatric) (principal); R51.9 Headache, unspecified; G89.29 Other chronic pain | CPT/HCPCS: 94762 ==

== ENCOUNTER 2024-09-14 11:38 | Outpatient (CLI) | payer OTHER, SELFPAY | END 2024-09-14 23:59 | disposition home or self-care (01) | LOC: RAD 11:38 | PROVIDERS: Visit Provider Specialist | DX: G47.33 Obstructive sleep apnea (adult) (pediatric) (principal); R51.9 Headache, unspecified; G89.29 Other chronic pain | CPT/HCPCS: 94762 ==

== ENCOUNTER 2024-09-20 08:51 | Outpatient (CLI) | payer OTHER, SELFPAY ==
--- OUTSIDE RECORDS SUMMARY | 2024-10-03 08:56 | XMS_ITS | Clinical Summary ---
Author Organization [facility] Address [address] [place] [address] Care Team Providers Care Group Leader Wafer Polishing Name Role Phone Mario Herrera MD Primary Care Provider + [phone] Allergies Active Allergy Reactions Criticality Noted Date Comments Fluoxetine Swelling High 02/06/2018 Penicillins Rash Low 02/06/2018 Medications albuterol (Ventolin HFA) 108 (90 Base) MCG/ACT inhaler Inhale 2 puffs every 4 (four) hours if needed. 08/30/2019 Active EQ Aspirin Adult Low Dose 81 MG EC tablet Take 81 mg by mouth 1 (one) time each day. 09/11/2020 Active atorvastatin (Lipitor) 40 MG tablet Take 40 mg by mouth every night. 09/11/2020 Active bisoprolol (Zebeta) 5 MG tablet Take 5 mg by mouth 1 (one) time each day. 09/11/2020 Active Anoro Ellipta 62.5-25 MCG/INH aerosol powder Inhale 1 puff every night. 09/11/2020 Active Active Problems Problem Noted Date Diagnosed Date Hypertension 11/17/2020 Motion sickness 11/10/2020 Peripheral vascular disease 11/10/2020 High cholesterol 11/10/2020 Orthopnea 11/10/2020 Gastroesophageal reflux disease 11/10/2020 Recent URI 11/10/2020 Coronary artery disease, ang viry presence unspecified, unspecified vessel or lesion type, unspecified whether [place] or transplanted heart 07/29/2020 Overview (01/24/2022): Regulatory Update January 2022 Intraabdominal mass 06/04/2020 Right middle lobe syndrome 12/11/2018 COPD (chronic obstructive pulmonary disease) Tobacco abuse counseling 02/06/2018 Resolved Problems Problem Noted Date Diagnosed Date Resolved Date Right lower quadrant abdominal mass 11/13/2020 11/15/2020 Family History Medical History Relation Name Comments COPD Mother Emphysema Mother Lung cancer Mother Relation Name Status Comments Mother Social History Tobacco Use Types Packs/Day Years Used Date Smoking Tobacco: Every Day Smokeless Tobacco: Never Alcohol Use Standard Drinks/Week Comments No 0 (1 standard drink = 0.6 oz pure alcohol) Alcoholic Drinks/day: Denies alcohol consumption Comments No Sex and Gender Information Value Date Recorded Sex Assigned at Not on file Legal Sex Female 7:47 PM EDT Gender Identity Not on file Sexual Orientation Straight 11/13/2020 6: 07 AM EDT Last Filed Vital Signs Vital Sign Reading Time Taken Comments Blood Pressure 153/77 12/10/2020 9:10 AM EDT Pulse 71 11/15/2020 7:40 AM EDT Temperature 36.8 C (98.2 F) 11/15/2020 7:40 AM EDT Respiratory Rate 16 11/15/2020 7:40 AM EDT Oxygen Saturation 90% 11/15/2020 7:40 AM EDT Inhaled Oxygen Concentration - - Weight 59.1 kg (130 lb 4.7 oz) 12/10/2020 9:10 A M EDT Height 165.1 cm (5' 5 ) 12/10/2020 9:10 AM EDT Body Mass Index 21.68 12/10/2020 9:10 AM EDT Plan of Treatment Health Maintenance Due Date Last Done Comments [facility]-Depression Screening 1969 [facility]-/Child/Adol SDOH Screenings 1969 [facility]- SDOH Screenings 1987 [facility]-Adult SDOH Screenings 1987 [facility]-Pap Smear 1990 [facility]-Cervical Cancer Screening 1999 [facility]-HPV/Cotest 1999 [facility]-Hepatitis B Vaccines (3 of 3 - 19+ 3-dose series) 06/22/1999 01/27/1999, 12/22/1998 [facility]-DTaP,Tdap,and Td Vaccine s (1 - Tdap) 02/08/2007 02/07/2007, 12/27/1995 CT Colonography 2014 Colonoscopy 2014 FIT-DNA 2014 FIT 2014 FOBT 2014 Sigmoidoscopy 2014 [facility]-Colorectal Cancer Screening 2014 [facility]-Zoster Vaccines (1 of 2) 2019 VDS-IRVWO-27 Vaccine ( - season) 2023 05/06/2020, 04/20/2020 [facility]-Influenza Vaccine ([place] n Ended) 2024 01/23/2020 [facility]-Pneumococcal Vaccine: 50 + Years Completed 07/26/2022 HPV Vaccines Aged Out No longer eligi ble based on patient's age to complete this topic [facility]-HIB Vaccines Aged Out No longer e ligible based on patient's age to complete this topic [facility]-Hepatitis A Vaccines Aged Out No longer eligible based on patient's age to complete this topic [facility]-IPV Vaccines Aged Out No longer e ligible based on patient's age to complete this topic [facility]-Rotavirus Vaccines Aged Out No lo nger eligible based on patient's age to complete this topic Medical Devices Implanted Type Area Software Developer Consultant Device Identifier Shelf Expiration Date Model / Serial / Lot Stent Stent N/A: Other (See Comments) Description:Celiac artery Insurance AETNA [facility] MEDICAID Care Teams Group Leader Wafer Polishing Relationship Specialty Start Date End Date Mario Herrera MD [address] [place], [place] [address] [address] PCP - General 09/04/20
== END 2024-09-20 23:59 | disposition home or self-care (01) ==
LOC: LAB.DROPOF 10-03 08:52
PROVIDERS: PCP Family Medicine; Visit Provider Family Medicine
DX: R69 Illness, unspecified (principal)
CPT/HCPCS: 93005

== ENCOUNTER 2024-09-20 09:21 | Outpatient (CLI) | payer OTHER, SELFPAY ==
--- NOTE | 2024-09-20 09:25 | XR_ITS ---
FINAL REPORT TECHNIQUE: Chest PA & Lateral CLINICAL HISTORY: COPD COMPARISON: 03/04/2024 FINDINGS: 2 views of the chest were performed. The heart size is normal. The mediastinum is within normal limits. The lungs are hyperinflated. Linear scarring is seen at the lung bases, right greater than left. There is no acute cardiopulmonary process. There are no pleural effusions. There is no pneumothorax. The bony thorax appears intact. IMPRESSION: Hyperinflation without acute cardiopulmonary process. Linear scarring at the lung bases, right greater than left. Reviewed, Interpreted and Dictated by Malcolm Tolliver MD Transcribed by Alicja Mena Authenticated and [facility]
[2024-09-20 09:47] LABS: Basophils # 0.1 K/mm3 (0-0.2); Basophils % 0.8 % (0.1-2.0); Eosinophils # 0.3 Kmm3 (0.0-0.4); Eosinophils % 3.3 % (0.1-12.0); Hemoglobin 13.1 g/dL (12.2-16.2); Immature Granulocytes # 0.04 10^3uL; Immature Granulocytes % 0.4 %; Lymphocytes % 21.7 % (10-50); Mean Corpuscular HGB Conc 33.6 g/dL (31.8-35.4); Mean Corpuscular Hemoglobin 31.7 pg (27.0-31.2); Mean Corpuscular Volume 94.4 fl (81-99); Mean Platelet Volume 8.5 fl (7.4-10.4); Monocytes # 0.6 K/mm3 (0.1-1.0); Monocytes % 6.7 % (1.7-9.3); Neutrophils # 6.2 K/mm3 (1.8-7.8); Neutrophils % 67.1 % (37.0-80.0); Nucleated Red Blood Cells # 0 10^3/uL; Nucleated Red Blood Cells % 0 %; Platelet Count 325 K/mm3 (142-424); Red Blood Count 4.13 M/mm3 (4.20-5.40); Red Cell Distribution Width 12.3 % (11.5-17.5); White Blood Count 9.2 K/mm3 (4.8-10.8)
[2024-09-20 10:24] LABS: Alanine Aminotransferase 8 U/L (12-78); Albumin Level 3.8 g/dl (3.5-5.0); Albumin/Globulin Ratio 1.4 (1.1-1.8); Alkaline Phosphatase 70 U/L (38-126); Anion Gap 10.8 mEq/L (5-15); Aspartate Amino Transferase 20 U/L (14-36); Bilirubin,Total 0.4 mg/dl (0.2-1.3); Blood Urea Nitrogen 8 mg/dl (7-17); Calcium 8.9 mg/dl (8.4-10.2); Carbon Dioxide 29 mmol/L (22.0-30.0); Chloride 106 mmol/L (98-107); Estimated Glomerular Filt Rate 74 ml/min (>60); GFR (African American) 90 ML/MIN (>60); Globulin 2.8 g/dL (1.3-3.2); Glucose 57 mg/dl (74-100); Potassium 3.8 mmoL/L (3.5-5.1); Sodium 142 mmol/L (136-145); Total Protein,Serum 6.6 g/dl (6.3-8.2)
[2024-09-20 11:09] VITALS: BMI 21.4
== END 2024-09-20 23:59 | disposition home or self-care (01) ==
LOC: PREOP 09:22
PROVIDERS: PCP Family Medicine; Visit Provider Anesthesiology
DX: Z00.00 Encounter for general adult medical examination without abnormal findings (principal); J44.9 Chronic obstructive pulmonary disease, unspecified; R91.8 Other nonspecific abnormal finding of lung field
CPT/HCPCS: 36415; 71046; 80053; 85025

== ENCOUNTER 2024-09-27 06:06 | Day surgery (SDC) | payer OTHER, SELFPAY ==
[2024-09-20 11:11] VITALS: BMI 21.4
[2024-09-27] MEDS: LACTATED RINGERS 1000ML 1,000 ML 25 ML IV (06:23)
[2024-09-27 06:33] VITALS: BP 107/52; PULSE 63; RESP 18; TEMP 36.4; O2SAT 98
--- NOTE | 2024-09-27 06:57 | EXP.ANES.CKL ---
[facility] Disclaimer: The information contained in this section may have been updated after the patient was seen, as this information can be updated by other users. Medical History TMJ (dislocation of temporomandibular joint) Left ear pain History of recurrent pneumonia Hammertoes of both feet Tailor's bunion of right foot Mass of skin of right foot Angina pectoris Abnormal abdominal CT scan Acute embolism and thrombosis of superficial vein of right arm Hyperglycemia Pre-op evaluation Biliary stent obstruction Bronchitis Nasal congestion Maxillary sinusitis Chronic sinusitis Sprain of right ankle Community acquired pneumonia Acute sinusitis Hypokalemia COPD mixed type Open wound of left great toe Unspecified open wound of left great toe with damage to nail, initial encounter Pain of toe Onychocryptosis Eosinophilia Hyperlipidemia Encounter for screening for malignant neoplasm of lung in current smoker with 30 pack year history or greater Tobacco abuse disorder Tobacco abuse counseling Right middle lobe syndrome History of recurrent pneumonia COPD (chronic obstructive pulmonary disease) Exertional shortness of breath Encounter for Postoperative Care Edema of soft tissue of right ankle region Dyspnea Foot sprain Right carotid bruit CAD (coronary artery disease) Left arm numbness Surgical History History of cholecystectomy History of abdominal surgery H/O total hysterectomy Family History Mother Lung cancer Other Cancer Coronary artery disease Heart attack Hyperlipidemia Hypertension Thyroid disorder Social History Smoking Status: Current every day smoker tobacco type: cigarettes packs per day: 1 years smoked: 40 second hand exposure: No alcohol intake: never substance use type: denies use current occupational status: employed Travel in the last 8 weeks?: None household members: family housing: house marital status: current occupation: [employer] current occupational exposures/hazards: No caffeine: Yes Have you lived/traveled outside [place] in past 30 days?: No Contact w/someone who lives/traveled outside US past 30 days?: No Exposure to someone with infectious disease in past 14 days?: No Do you have a fever (greater than 100.4 F or 38 C)?: No Have you tested positive for COVID-19?: No Exposed to someone with COVID-19 in past 14 days?: No Do you have a sore throat?: No Do you have a cough?: No Do you have any weakness?: No Do you have any diarrhea?: No Are you experiencing any unusual bleeding?: No Do you have any muscle aches/pain?: No Do you have any abdominal pain?: No Are you experiencing loss of taste or smell?: No [facility] Anesthesia Checklist Patient Identification Patient Identification: Arm Band and Family Structural Data Admitted From: Home Planned Operative Procedure/s: Spinal cord trial stimulator. Consent for Planned Operative Procedure(s) Verified: Yes Verified Documents: Surgical Consent and History and Physical NPO Status Verified Time NPO: 00:00 Additional verifications Patient : No Anesthesia Reactions: No Hx Blood Transfusions: No Blood Transfusion Reaction: No Cephalosporin Allergy: No Previous Colonoscopy: No Airway Assessment Mallampati Score:: Class II C-Spine Mobility Assessed: Yes TMJ Mobility Assessed: Yes Dentition: Dentures-good fit Neurological Assessment Level of Consciousness: Awake, Alert, Appropriate and Follows Commands Hx Seizures: No Numbness or tingling in extremities: No Anesthesia Plan Anesthesia Risk discussed: Yes ASA Class: II Anesthesia Type: MAC
[2024-09-27] MEDS: CLINDAMYCIN PHOSPHATE/D5W 900 MG/50 ML PIGGYBACK 100 MG IV (07:43)
[2024-09-27] MEDS: LIDOCAINE 1% W/EPI 1:100,000 20ML VIAL 40 ML (08:00)
[2024-09-27 08:28] VITALS: BP 144/62; PULSE 70; RESP 16; TEMP 36.2; O2SAT 97
--- NOTE | 2024-09-27 08:34 | P.OP_ITS ---
Date of procedure: 09/27/24 Pre-op Diagnosis:: Degenerative disc disease of lumbar spine with lumbar radiculopathy symptoms Post-op Diagnosis:: Same Procedure performed:: Spinal cord stimulator trial with epidural lead placement x 2 Surgeon:: Bryan Crouch MD Anesthesia: MAC Estimated blood loss (mL): 1 Clinical Note:: This patient is a pleasant 54-year-old white female who we are treating for degenerative disease of lumbar spine with lumbar radiculopathy symptoms. She has failed all previous conservative treatments including injections, oral medications, physical therapy and she is not a candidate for surgery. She presents for spinal cord stimulator trial today. She has had a successful psychological evaluation. Operative findings:: None Operative note:: Informed consent was obtained risk and benefits of the procedure were explained to the patient. The patient was taken to the operating room placed prone on the procedure table. She was prepped and draped in sterile fashion. C-arm fluoroscopy was used to view the lumbar spine. The skin and subcutaneous tissues adjacent to the L1-L2 interspace were anesthetized using lidocaine. I placed a 17-gauge epidural needle and advanced into the L1-2 interspace. After confirmation of needle placement in the epidural space a stimulating lead was inserted and advanced to the T6-T7-T8 vertebral bodies. A second needle was inserted and advanced again into the L1-L2 interspace. Again after confirmation of needle placement in the epidural space a second stimulating lead was inserted and advanced very easily to the T6-T7-T8 vertebral bodies. We did test on the table with good stimulation in all areas of pain. The leads were in good position there were posterior and midline left and right of the spinous processes. The needles and stylets were removed. The leads were secured in place. The patient was taken to recovery in stable condition. She was programmed by the [employer] customer relations representative with good stimulation in all areas of pain she was discharged home neurologic intact with good relief of pain symptoms. Will follow-up with this patient in 1 week for lead pull. Will assess efficacy of this spinal cord stimulator trial. The patient is to remain off of her Plavix. If successful we will plan on permanent placement. Plan and disposition: Will follow-up with this patient in 1 week. Condition: stable Disposition: PACU Complications:: none
[2024-09-27 08:38] VITALS: BP 135/70; PULSE 76; RESP 16; O2SAT 99
[2024-09-27 08:48] VITALS: BP 129/68; PULSE 78; RESP 16; O2SAT 99
[2024-09-27 08:58] VITALS: BP 167/68; PULSE 75; RESP 18; O2SAT 99
== END 2024-09-27 09:15 | disposition home or self-care (01) ==
PROVIDERS: PCP Family Medicine; Visit Provider Anesthesiology
PROC: (CPT 63650; principal; 2024-09-27 07:30)
DX: M51.16 Intervertebral disc disorders with radiculopathy, lumbar region (principal); J44.9 Chronic obstructive pulmonary disease, unspecified; F17.210 Nicotine dependence, cigarettes, uncomplicated; Z86.16 Personal history of COVID-19; E78.5 Hyperlipidemia, unspecified; Z86.718 Personal history of other venous thrombosis and embolism; Z88.5 Allergy status to narcotic agent; Z88.0 Allergy status to penicillin; Z88.8 Allergy status to other drugs, medicaments and biological substances; Z79.82 Long term (current) use of aspirin; Z79.899 Other long term (current) drug therapy; Z79.02 Long term (current) use of antithrombotics/antiplatelets
CPT/HCPCS: 63650 ×2; 96374; C1778; J0736; J2004; J2250; J3010; J7120

== ENCOUNTER 2024-09-30 09:27 | Day surgery (SDC) | payer OTHER, SELFPAY ==
[2024-09-27 12:53] VITALS: BMI 21.4
[2024-09-30 10:18] VITALS: BP 123/67; PULSE 61; RESP 18; TEMP 36.2; BMI 21.4
[2024-09-30] MEDS: LACTATED RINGERS 1000ML 1,000 ML 50 ML IV (10:28)
--- NOTE | 2024-09-30 11:12 | EXP.HP ---
History of Present Illness *Admission Date: 09/30/24 *Reason for visit:: Change in bowel habits and family history of colon cancer (brother) *History of present illness: Mrs. Hirsch is a 54-year-old female who is here for diagnostic colonoscopy. She has had a change in her bowel habits. Most of her life she has had diarrhea and urgency. 4 to 6 months ago, she did have a change and is now having constipation. She will occasionally get a little blood which she thinks is hemorrhoidal. Sometimes she will have painful hemorrhoids. Her brother was recently diagnosed with colon cancer in his 60s last year. The examination is deemed medically necessary for diagnostic colonoscopy. The patient has been seen, interviewed and examined prior to the procedure by both myself and the anesthesia provider. [facility] Disclaimer: The information contained in this section may have been updated after the patient was seen, as this information can be updated by other users. Medical History TMJ (dislocation of temporomandibular joint) Left ear pain History of recurrent pneumonia Hammertoes of both feet Tailor's bunion of right foot Mass of skin of right foot Angina pectoris Abnormal abdominal CT scan Acute embolism and thrombosis of superficial vein of right arm Hyperglycemia Pre-op evaluation Biliary stent obstruction Bronchitis Nasal congestion Maxillary sinusitis Chronic sinusitis Sprain of right ankle Community acquired pneumonia Acute sinusitis Hypokalemia COPD mixed type Open wound of left great toe Unspecified open wound of left great toe with damage to nail, initial encounter Pain of toe Onychocryptosis Eosinophilia Hyperlipidemia Encounter for screening for malignant neoplasm of lung in current smoker with 30 pack year history or greater Tobacco abuse disorder Tobacco abuse counseling Right middle lobe syndrome History of recurrent pneumonia COPD (chronic obstructive pulmonary disease) Exertional shortness of breath Encounter for Postoperative Care Edema of soft tissue of right ankle region Dyspnea Foot sprain Right carotid bruit CAD (coronary artery disease) Left arm numbness Surgical History History of cholecystectomy History of abdominal surgery H/O total hysterectomy Family History Mother Lung cancer Other Cancer Coronary artery disease Heart attack Hyperlipidemia Hypertension Thyroid disorder Social History (Updated 09/30/24 @ 10:23 by Alaina Salas RN) Smoking Status: Current every day smoker tobacco type: cigarettes packs per day: 1 years smoked: 40 second hand exposure: No alcohol intake: never substance use type: denies use current occupational status: employed Travel in the last 8 weeks?: None household members: family housing: house marital status: current occupation: [employer] current occupational exposures/hazards: No caffeine: Yes Have you lived/traveled outside US in past 30 days?: No Contact w/someone who lives/traveled outside US past 30 days?: No Exposure to someone with infectious disease in past 14 days?: No Do you have a fever (greater than 100.4 F or 38 C)?: No Have you tested positive for COVID-19?: No Exposed to someone with COVID-19 in past 14 days?: No Do you have a sore throat?: No Do you have a cough?: No Do you have any weakness?: No Are you experiencing any nausea/vomitting?: No Do you have any diarrhea?: No Are you experiencing any unusual bleeding?: No Do you have any muscle aches/pain?: No Do you have any abdominal pain?: No Are you experiencing loss of taste or smell?: No Other Medical History Have you received the Flu Vaccine for this season: No Have you received the Pneumonia Vaccine: Yes Review of Systems Review of Systems Review of systems (narrative): Negative *Cardiovascular Comments: Negative *Gastrointestinal Comments: Negative *Genitourinary Comments: Negative *Musculoskeletal Comments: Negative *Neurologic Comments: Negative Meds Home Medications and Allergies Home Medications ?Medication ?Instructions ?Recorded ?Confirmed ?Type ondansetron 4 mg disintegrating 4 mg PO Q8H PRN nausea and 04/28/23 09/30/24 Rx tablet vomiting 5 days #10 tabs clopidogrel 75 mg tablet (Plavix) 75 mg PO DAILY #90 tabs 08/16/23 09/30/24 Rx fluticasone propionate 50 2 spray intranasal DAILY 90 days 08/16/23 09/30/24 Rx mcg/actuation nasal #16 grams spray,suspension (Flonase Allergy Relief) cetirizine 10 mg tablet (All Day 10 mg PO DAILY #90 tabs 11/10/23 09/30/24 Rx Allergy (cetirizine)) ipratropium 0.5 mg-albuterol 3 mg 3 ml inhalation QID PRN shortness 03/04/24 09/30/24 Rx (2.5 mg base)/3 mL nebulization of breath or wheezing 90 days #270 soln mL fluticasone fur. 200 mcg-umeclid 1 inh inhalation DAILY 90 days #90 03/25/24 09/30/24 Rx 62.5 mcg-vilant 25 mcg ea inhalat.powder (Trelegy Ellipta) bisoprolol fumarate 5 mg tablet 10 mg PO DAILY 04/23/24 09/30/24 History montelukast 10 mg tablet 10 mg PO DAILY 04/25/24 09/30/24 History levalbuterol tartrate 45 2 inh inhalation Q6H PRN shortness 05/30/24 09/30/24 Rx mcg/actuation aerosol inhaler of breath or wheezing 90 days #15 (Xopenex HFA) grams ammonium lactate 12 % topical cream 1 applic topical BID dry skin, 07/08/24 09/30/24 Rx callus care 30 days #385 grams aspirin 81 mg tablet,delayed 81 mg PO DAILY thiiner #90 tabs 07/15/24 09/30/24 Rx release azelastine 137 mcg (0.1 %) nasal 2 spray intranasal HS 90 days #30 08/05/24 09/30/24 Rx spray mL gabapentin 300 mg capsule See Rx Instructions .Route 08/05/24 09/30/24 Rx .COMPLEX Pain #60 caps oxycodone-acetaminophen 5 mg-325 1 tab PO DAILY PRN pain #20 tabs 08/05/24 09/30/24 Rx mg tablet (Percocet) pantoprazole 40 mg tablet,delayed See Rx Instructions .Route BID 08/05/24 09/30/24 Rx release #180 tabs mupirocin 2 % topical ointment 1 applic topical BID infection 14 09/02/24 09/30/24 Rx days #22 grams doxycycline hyclate 100 mg capsule 100 mg PO BID infection 14 days 09/17/24 09/30/24 Rx #28 caps rosuvastatin 40 mg tablet See Rx Instructions .Route 09/17/24 09/30/24 Rx .COMPLEX #90 tabs sodium,potassium,mag sulfates 17.5 See Rx Instructions PO .COMPLEX 09/17/24 09/30/24 Rx gram-3.13 gram-1.6 gram oral soln #354 mL (Suprep Bowel Prep Kit) sulfamethoxazole 800 1 tab PO BID #20 tabs 09/27/24 09/30/24 Rx mg-trimethoprim 160 mg tablet New Prescriptions to Start Prescriptions: Allergies Allergy/AdvReac Type Severity Reaction Status Date / Time fluoxetine (From WatchwithzaElevaate) Allergy Intermediate I-RASH Verified 09/30/24 10:11 Penicillins Allergy Intermediate I-RASH Verified 09/30/24 10:11 tramadol AdvReac dizziness, Verified 09/30/24 10:11 sweats Exam Data for Last 24 hours Vital signs and Labs for Last 24 Hours: Temp Pulse Resp BP O2 Del Method 97.1 F L 61 18 123/67 Room Air 09/30/24 10:18 09/30/24 10:18 09/30/24 10:18 09/30/24 10:18 09/30/24 10:18 I & O for Last 24 hours: Intake & Output 09/27/24 09/28/24 09/29/24 09/30/24 23:59 23:59 23:59 23:59 Weight 121 lb 121 lb *Routine HEENT Exam Head: Present normocephalic Eye: Present EOMI and PERRL ENT: Present mucous membranes moist *Routine Neck Exam Neck: Present supple *Routine Respiratory Exam Respiratory: Present CTA bilaterally *Routine Cardiovascular Exam Cardiovascular: Present RRR *Routine Abdominal Exam Abdominal: Present soft and normoactive bowel sounds; Absent tenderness *Routine Rectal Exam Rectal:: deferred *Routine Genitalia Exam Genitalia:: deferred *Routine Extremities Exam Extremities: Absent cyanosis, clubbing or edema *Routine Skin Exam Skin: Present warm; Absent rash *Routine Neurological Exam Neurological: Present alert and oriented X3 Assessment and Plan *Assessment and plan (1) Change in bowel habits: Status: Acute Category: Medical Code(s): R19.4 - Change in bowel habit (2) Bright red blood per rectum: Status: Acute Category: Medical Code(s): K62.5 - Hemorrhage of anus and rectum (3) Hemorrhoids: Status: Acute Category: Medical Code(s): K64.9 - Unspecified hemorrhoids (4) Family history of colorectal cancer: Status: Acute Category: Medical Code(s): Z80.0 - Family history of malignant neoplasm of digestive organs Plan A/P: 1. Change in bowel habits and family history of colon cancer (brother) is the preprocedural diagnosis. The patient has never had a colonoscopy. She does note some occasional bright red blood which she attributes to hemorrhoids. The patient will be anesthetized/sedated using MAC sedation. The patient has been seen and examined. Cardiac and lung assessment prior to the examination is stable. Proceed with planned diagnostic colonoscopy.
--- NOTE | 2024-09-30 11:16 | HMH.PROCNOTE ---
[facility] Procedure Note Date: 09/30/24 Time: 11:43 Procedure Note:: Colonoscopy Procedure Report: Colonoscopy with cold snare polypectomy and hemorrhoid band ligation Endoscopist: James Jay II, MD Referring physician: JOLANTA Albright Date of Procedure: September 30, 2024 Equipment: Olympus 190 variable stiffness pediatric colonoscope Sedation: MAC sedation Indication: Mrs. Hirsch is a 54-year-old female who is here for diagnostic colonoscopy. The patient has had a history of bowel urgency and diarrhea for most of her life but 4 to 6 months ago she had a change in her bowel habits with constipation and would skip 2 or 3 days without a bowel movement. She was having some bloating and generalized abdominal discomfort and fullness. She occasionally would have hemorrhoidal prolapse. She does state that her brother was diagnosed with colon cancer in his 60s. The patient has never had a colonoscopy. She reports no significant rectal bleeding or weight loss. Procedure: Prior to the procedure, a history and physical exam was performed, and patient's medications and allergies were reviewed. The risks, benefits and alternatives of the sedation and procedure were discussed with the patient. All questions were answered and informed consent was obtained. The patient was brought to the procedure room. Patient identification and proposed procedure were verified by the physician and the nurse. The patient was placed in a left lateral decubitus position and the scope was passed under direct vision. Throughout the procedure, the patient's blood pressure, pulse, and oxygen saturations were monitored continuously. The colonoscopy was accomplished without difficulty. The patient tolerated the procedure well. Findings: On digital rectal examination there was normal rectal tone. There was hemorrhoidal prolapse with grade 3 hemorrhoidal prolapse. The colonoscope was introduced through the anal canal to the rectum and advanced to the cecum. The ileocecal valve and appendiceal orifice were identified. The scope was advanced a short distance into the ileum which appeared grossly normal. The scope was then withdrawn into the colon. There were 3 colon polyps (descending x 1 (7 mm) and rectal x 2 (3 and 6 mm)). These were all removed via cold snare polypectomy. The cecum, ascending, transverse, descending, sigmoid and rectum were grossly normal. There were no mucosal abnormalities identified. Upon retroflexion within the rectum there was 1 larger prolapsing grade 3 internal hemorrhoid. 2 bands were placed on this column with excellent ligation effect. The preparation was excellent throughout with Donnellson Preparation Score of 9. The cecal time was 12 minutes. Impression: 1. Colonic polyps x 3 2. Prolapsing grade 3 internal hemorrhoids status post band ligation x 2 Plan: I will follow-up the polyp histology and recommend repeat surveillance colonoscopy again in 5 years. I would encourage a fiber bowel regimen on a long-term daily maintenance basis. I do feel that she has some outlet dysfunction constipation. She may need pelvic floor physical therapy.
[2024-09-30 11:22] VITALS: BP 123/67; PULSE 61; RESP 18; TEMP 36.2; O2SAT 100
[2024-09-30 11:50] VITALS: BP 80/54; PULSE 84; RESP 17; TEMP 36.2; O2SAT 98
[2024-09-30 12:00] VITALS: BP 87/45; PULSE 81; RESP 17; O2SAT 98
[2024-09-30 12:10] VITALS: BP 105/55; PULSE 70; RESP 17; O2SAT 100
[2024-09-30 12:20] VITALS: BP 114/64; PULSE 73; RESP 17; TEMP 36.2; O2SAT 100
--- NOTE | 2024-09-30 14:40 | P.PNANES_ITS ---
[facility] Disclaimer: The information contained in this section may have been updated after the patient was seen, as this information can be updated by other users. Medical History TMJ (dislocation of temporomandibular joint) Left ear pain History of recurrent pneumonia Hammertoes of both feet Tailor's bunion of right foot Mass of skin of right foot Angina pectoris Abnormal abdominal CT scan Acute embolism and thrombosis of superficial vein of right arm Hyperglycemia Pre-op evaluation Biliary stent obstruction Bronchitis Nasal congestion Maxillary sinusitis Chronic sinusitis Sprain of right ankle Community acquired pneumonia Acute sinusitis Hypokalemia COPD mixed type Open wound of left great toe Unspecified open wound of left great toe with damage to nail, initial encounter Pain of toe Onychocryptosis Eosinophilia Hyperlipidemia Encounter for screening for malignant neoplasm of lung in current smoker with 30 pack year history or greater Tobacco abuse disorder Tobacco abuse counseling Right middle lobe syndrome History of recurrent pneumonia COPD (chronic obstructive pulmonary disease) Exertional shortness of breath Encounter for Postoperative Care Edema of soft tissue of right ankle region Dyspnea Foot sprain Right carotid bruit CAD (coronary artery disease) Left arm numbness Surgical History History of cholecystectomy History of abdominal surgery H/O total hysterectomy Family History Mother Lung cancer Other Cancer Coronary artery disease Heart attack Hyperlipidemia Hypertension Thyroid disorder Social History (Updated 09/30/24 @ 10:23 by Alaina Salas RN) Smoking Status: Current every day smoker tobacco type: cigarettes packs per day: 1 years smoked: 40 second hand exposure: No alcohol intake: never substance use type: denies use current occupational status: employed Travel in the last 8 weeks?: None household members: family housing: house marital status: current occupation: [employer] current occupational exposures/hazards: No caffeine: Yes [facility] Anesthesia Checklist Patient Identification Patient Identification: Arm Band Structural Data Admitted From: Home Planned Operative Procedure/s: Colonoscopy Consent for Planned Operative Procedure(s) Verified: Yes Verified Documents: Surgical Consent and History and Physical NPO Status Verified Time NPO: 00:00 Additional verifications Anesthesia Reactions: No Hx Blood Transfusions: No Blood Transfusion Reaction: No Airway Assessment Mallampati Score:: Class II C-Spine Mobility Assessed: Yes TMJ Mobility Assessed: Yes Neurological Assessment Level of Consciousness: Awake, Alert and Appropriate Anesthesia Plan Anesthesia Risk discussed: Yes Anesthesia Plan: Verified ASA Class: III Anesthesia Type: MAC
== END 2024-09-30 12:29 | disposition home or self-care (01) ==
PROVIDERS: PCP Family Medicine; Visit Provider Internal Medicine Gastroenterology
PROC: 0DJD8ZZ Inspection of Lower Intestinal Tract, Via Natural or Artificial Opening Endoscopic (ICD-10-PCS; CPT 45378; principal; 2024-09-30 11:00)
DX: K63.5 Polyp of colon (principal); K64.2 Third degree hemorrhoids; D12.8 Benign neoplasm of rectum; I25.10 Atherosclerotic heart disease of native coronary artery without angina pectoris; J44.9 Chronic obstructive pulmonary disease, unspecified; E78.5 Hyperlipidemia, unspecified; F17.210 Nicotine dependence, cigarettes, uncomplicated; Z79.899 Other long term (current) drug therapy; Z86.718 Personal history of other venous thrombosis and embolism
CPT/HCPCS: 45385; 45398; C1889; J7120

== ENCOUNTER 2024-10-04 14:19 | Outpatient (POV) | payer OTHER, SELFPAY ==
--- OUTSIDE RECORDS SUMMARY | 2024-10-04 14:21 | XMS_ITS | Clinical Summary ---
Author Organization [facility] Address [address] [place] [address] Care Team Providers Care Outside Parts Salesman Name Role Phone Mario Herrera MD Primary Care Provider + [phone] Allergies Active Allergy Reactions Criticality Noted Date [...] unspecified vessel or lesion type, unspecified whether [place] or transplanted heart 07/29/2020 Overview (01/24/2022): Regulatory Update January 2022 Intraabdominal mass 06/04/2020 Right middle lobe syndrome 12/11/2018 COPD (chronic obstructive pulmonary disease) Tobacco abuse counseling 02/06/2018 Resolved Problems Problem Noted Date Diagnosed Date Resolved Date Right lower quadrant abdominal mass 11/13/2020 11/15/2020 Encounters Date Type Department Care Team Description 10/03/2024 Orders Only [facility] [place] [facility] [address] [place] [address] Ivy Karimi, RN Hyperlipidemia, unspecified hyperlipidemia type (Primary Dx); Bilateral claudication of lower limb; PVD (peripheral vascular disease) (CMS/HCC); Carotid artery stenosis without cerebral infarction, bilateral from Last 3 Months Family History Medical History Relation Name Comments [...] Date Last Done Comments [facility]-Depression Screening 1969 [facility]-Infant/Child/Adol SDOH Screenings 1969 [facility]- SDOH Screenings 1987 [...] 2014 [facility]-Zoster Vaccines (1 of 2) 2019 UOR-IRBGN-15 Vaccine (3 - 2023- season) 2023 05/06/2020, 04/20/2020 [facility]-Influenza Vaccine (Seaso [...] this topic Medical Devices Implanted Type Area Grades 9 Through 12 Teacher Device Identifier Shelf Expiration Date Model / Serial / Lot Stent Stent N/A: Other (See Comments) Description:Celiac artery Insurance AETNA [facility] MEDICAID Care Teams Outside Parts Salesman Relationship Specialty Start Date End Date Mario Herrera MD [address] [place] [address] PCP - General 09/04/20
--- OUTSIDE RECORDS SUMMARY | 2024-10-04 14:21 | XMS_ITS | Encounter Summary ---
Author Organization [facility] Address [address] [place] [address] Care Team Providers Care Acquisition Professional Name Role Phone Mario Herrera MD Primary Care Provider + [phone] Reason for Referral * Consultation (Routine) - Authorized Specialty Diagnoses / Procedures Referred By Contac t Referred To Contact Cardiology Diagnoses Hyperlipidemia, unspecified hyperlipidemia type Bilateral claudication of lower limb PVD (peripheral vascular disease) (CMS/HCC) Carotid artery stenosis without cerebral infarction, bilateral Delisa Burnett APRN [address] [facility] [address] [place] [address] Phone: tel: fax: Referral ID Status Reason Start Date Expiration Date Visits Requested Visits Authorized [id number] Authorized Specialty Services Required 10/03/2024 04/04/2026 1 1 Scheduling Instructions Per Tamara Celaya, not appropriate for Dr. Dee. Please schedule with general cardiology Encounter Details Date Type Department Care Team (Late st Contact Info) Description 10/03/2024 Orders Only [facility] [place] [facility] [address] [place] [address] Ivy Karimi, [facility] ADMI Hyperlipidemia, unspecified hyperlipidemia type (Primary Dx); Bilateral claudication of lower limb; PVD (peripheral vascular disease) (CMS/HCC); Carotid artery stenosis without cerebral infarction, bilateral Social History Tobacco Use Types Packs/Day Years [...] Orientation Straight 11/13/2020 6: 07 AM EDT documented as of this encounter Miscellaneous Notes * Progress Notes - Ivy Karimi RN - 10/03/2024 11:54 AM EDT Patient requesting to transfer her cardiology care to from [place] documented in this encounter Plan of Treatment Scheduled Referrals Name Type Priority Associated Diagnoses Orde r Schedule Ambulatory referral to Cardiology Outpatient Referral Routine Hyperlipidemia, unspecified hyperlipidemia type Bilateral claudication of lower limb (CMS/HCC) PVD (peripheral vascular disease) (CMS/HCC) Carotid artery stenosis without cerebral infarction, bilateral Expected: 10/03/2024 (Approximate), Expires: 04/06/2026 documented as of this encounter Visit Diagnoses Diagnosis Hyperlipidemia, unspecified hyperlipidemia type- Primary Bilateral claudication of lower limb PVD (peripheral vascular disease) (CMS/HCC) Unspecified peripheral vascular disease Carotid artery stenosis without cerebral infarction, bilateral documented in this encounter Additional Health Concerns Assessment Noted Time A fall risk assessment has been complete d for the patient 12/10/2020 9:13 AM EDT documented as of this encounter Care Teams Acquisition Professional Relationship Specialty Start Date End Date Mario Herrera MD [address] [place] [address] PCP - General 09/04/20 documented as of this encounter
[2024-10-04 14:30] VITALS: BP 138/88; PULSE 67; RESP 18; O2SAT 98; BMI 21.2
--- NOTE | 2024-10-04 16:22 | A.OFFVIS_ITS ---
[facility] Disclaimer: The information contained in this section may have been updated after the patient was seen, as this information can be updated by other users. Medical History TMJ (dislocation of temporomandibular joint) Left ear pain History of recurrent pneumonia Hammertoes of both feet Tailor's bunion of right foot Mass of skin of right foot Angina pectoris Abnormal abdominal CT scan Acute embolism and thrombosis of superficial vein of right arm Hyperglycemia Pre-op evaluation Biliary stent obstruction Bronchitis Nasal congestion Maxillary sinusitis right maxillary sinusitis per CT head/brain sd Chronic sinusitis Sprain of right ankle Community acquired pneumonia Acute sinusitis Hypokalemia COPD mixed type Open wound of left great toe Unspecified open wound of left great toe with damage to nail, initial encounter Pain of toe Onychocryptosis Eosinophilia Hyperlipidemia Encounter for screening for malignant neoplasm of lung in current smoker with 30 pack year history or greater Tobacco abuse disorder Smoking cessation Tobacco abuse counseling Right middle lobe syndrome History of recurrent pneumonia COPD (chronic obstructive pulmonary disease) Exertional shortness of breath Encounter for Postoperative Care Both of the lesions removed were consistent with epidermoid cysts. Edema of soft tissue of right ankle region Dyspnea Foot sprain Right carotid bruit CAD (coronary artery disease) Left arm numbness Surgical History History of cholecystectomy History of abdominal surgery H/O total hysterectomy Family History Mother Lung cancer Other Cancer Coronary artery disease Heart attack Hyperlipidemia Hypertension Thyroid disorder Social History Smoking Status: Current every day smoker tobacco type: cigarettes packs per day: 1 years smoked: 40 second hand exposure: No alcohol intake: never substance use type: denies use current occupational status: other Travel in the last 8 weeks?: None household members: family housing: house marital status: current occupation: [employer] current occupational exposures/hazards: No caffeine: Yes PM Subjective & Objective Subjective Subjective:: Patient is a pleasant 54-year-old female who presents today for lead pull of her spinal cord stimulator trial on 09/27/2024. Today she rates her pain a 0 out of 10. Patient does state that she has had a lot going on this past week that did make it somewhat hard to gauge how much improvement. Patient did end up having a colonoscopy towards the beginning of this week and then ended up having her hemorrhoids flareup which caused worsening pain. Patient has had more improvement towards the end however feels like it is hard to gauge based off of everything going on. Patient states she did not really get to move around and put it to good use. Her Shahbaz has been reviewed and is appropriate. Review of Systems: General: No recent weight changes, no fever, no sleep disturbances Respiratory: No cough, no shortness of air, no recurring pulmonary infections Cardiovascular/peripheral vascular: No chest pain, no palpitations, no edema, no shortness of breath Gastrointestinal: No new onset incontinence, normal bowel movements reported Genitourinary: No new onset incontinence Musculoskeletal: Low back pain, left leg pain Psychiatric: [Normal mood/affect] Neurological: [Denies weakness in extremities], [denies balance issues] Pain at rest (0-10 scale): 0 Objective Objective:: Physical Exam: General: Alert and oriented x3, no acute distress, pleasant and cooperative Lungs: Respirations even and unlabored, symmetrical chest expansion Eyes: PERRL Musculoskeletal: Flexion and extension of lumbar [spine] somewhat guarded secondary to pain, [antalgic gait noted] Neurological: Speech clear, no gross sensory deficit Has patient had previous pain injection?: Yes Percent improvement in pain since last injection: Waiting to give a percentage Conservative treatment options previously tried: Home exercise plan Length of treatment: Longer than 12 weeks Meds Home Medications and Allergies Home Medications ?Medication ?Instructions ?Recorded ?Confirmed ?Type ondansetron 4 mg disintegrating 4 mg PO Q8H PRN nausea and 04/28/23 10/04/24 Rx tablet vomiting 5 days #10 tabs clopidogrel 75 mg tablet (Plavix) 75 mg PO DAILY #90 t abs 08/16/23 10/04/24 Rx fluticasone propionate 50 2 spray intranasal DAILY 90 days 08/16/23 10/04/24 Rx mcg/actuation nasal #16 grams spray,suspension (Flonase Allergy Relief) cetirizine 10 mg tablet (All Day 10 mg PO DAILY #90 ta bs 11/10/23 10/04/24 Rx Allergy (cetirizine)) ipratropium 0.5 mg-albuterol 3 mg 3 ml inhalation QID PRN shortness 03/04/24 10/04/24 Rx (2.5 mg base)/3 mL nebulization of breath or wheezing 90 days #270 soln mL fluticasone fur. 200 mcg-umeclid 1 inh inhalation SUNITHA Y 90 days #90 03/25/24 10/04/24 Rx 62.5 mcg-vilant 25 mcg ea inhalat.powder (Trelegy Ellipta) bisoprolol fumarate 5 mg tablet 10 mg PO DAILY 4 10/04/24 History montelukast 10 mg tablet 10 mg PO DAILY 04/25/2409/22 History levalbuterol tartrate 45 2 inh inhalation Q6H PRN jesse rtness 05/30/24 10/04/24 Rx mcg/actuation aerosol inhaler of breath or wheezing 90 days #15 (Xopenex HFA) grams ammonium lactate 12 % topical cream 1 applic topical B ID dry skin, 07/08/24 10/04/24 Rx callus care 30 days #385 grams aspirin 81 mg tablet,delayed 81 mg PO DAILY thiiner #9 0 tabs 07/15/24 10/04/24 Rx release azelastine 137 mcg (0.1 %) nasal 2 spray intranasal HS 90 days #30 08/05/24 10/04/24 Rx spray mL gabapentin 300 mg capsule See Rx Instructions .Route 0 08/05/24 10/04/24 Rx .COMPLEX Pain #60 caps oxycodone-acetaminophen 5 mg-325 1 tab PO DAILY PRN pa in #20 tabs 08/05/24 10/04/24 Rx mg tablet (Percocet) pantoprazole 40 mg tablet,delayed See Rx Instructions .Route BID 08/05/24 10/04/24 Rx release #180 tabs mupirocin 2 % topical ointment 1 applic topical BID in fection 14 09/02/24 10/04/24 Rx days #22 grams doxycycline hyclate 100 mg capsule 100 mg PO BID infec tion 14 days 09/17/24 10/04/24 Rx #28 caps rosuvastatin 40 mg tablet See Rx Instructions .Route 0 09/17/24 10/04/24 Rx .COMPLEX #90 tabs sodium,potassium,mag sulfates 17.5 See Rx Instructions PO .COMPLEX 09/17/24 10/04/24 Rx gram-3.13 gram-1.6 gram oral soln #354 mL (Suprep Bowel Prep Kit) sulfamethoxazole 800 1 tab PO BID #20 tabs 10/04/24 Rx mg-trimethoprim 160 mg tablet amitriptyline 25 mg tablet 25 mg PO HS #30 tabs 10/04/24 Rx New Prescriptions to Start Prescriptions: Allergies Allergy/AdvReac Type Severity Reaction Status Date / Time fluoxetine (From [employer] Estimate) Allergy Intermediate I-RASH Verified 10/02/24 13:27 Penicillins Allergy Intermediate I-RASH Verified 10/02/24 13:27 tramadol AdvReac dizziness, Verified 10/02/24 13:27 sweats Assessment and Plan *Assessment and plan (1) Left foot pain: Status: Acute Category: Medical Code(s): M79.672 - Pain in left foot (2) Lumbar radiculopathy: Status: Chronic Category: Medical Code(s): M54.16 - Radiculopathy, lumbar region (3) Degenerative joint disease (DJD) of lumbar spine: Status: Chronic Category: Medical Code(s): M47.816 - Spondylosis without myelopathy or radiculopathy, lumbar region Plan We were able to remove the leads with no complications and the patient tolerated this procedure well. The area around the leads was examined and there were no signs or symptoms of infection. Leads were complete and intact. I did discuss with the patient that we will allow a 2-week washout. For her symptoms to return and for her to have a better idea of whether or not the stimulator was or was not beneficial and if she would like to proceed forward with the implant. Patient agrees with this plan of care. Patient will return to clinic in 2 weeks. Patient has been instructed to contact the clinic with any concerns before the next appointment. Dr. Crouch has reviewed this note and agrees with this plan of care. This note was dictated using voice recognition software and make contain errors or omissions. All injections are used with Lidocaine, Bupivacaine and dexamethasone. Occasionally urine drug screen is needed to verify patient's compliance with our office pain contract. This is ordered based off specific treatments related to chronic pain with the potential to abuse certain medications.
== END 2024-10-04 23:59 | disposition home or self-care (01) ==
LOC: SC.PAIN 14:20
PROVIDERS: PCP Family Medicine; Visit Provider Nurse Practitioner Family
DX: M47.26 Other spondylosis with radiculopathy, lumbar region (principal); M79.672 Pain in left foot
CPT/HCPCS: 99212; G0463

== ENCOUNTER 2024-10-17 08:55 | Outpatient (POV) | payer OTHER, SELFPAY ==
--- OUTSIDE RECORDS SUMMARY | 2024-10-17 09:03 | XMS_ITS | Encounter Summary ---
Author Organization [facility] Address [address] [place] [address] Care Team Providers Care Plastic Maker Name Role Phone Mario Herrera MD Primary Care Provider + [phone] Reason for Referral * Consultation (Routine) - Authorized Specialty Diagnoses / Procedures Referred By Contac t Referred To Contact Cardiology Diagnoses Hyperlipidemia, unspecified hyperlipidemia type Bilateral claudication of lower limb PVD (peripheral vascular disease) (CMS/HCC) Carotid artery stenosis without cerebral infarction, bilateral Delisa Burnett APRN [address] [facility] [address] [place] [address] Phone: tel: fax: Referral ID Status Reason Start Date Expiration Date Visits Requested Visits Authorized [id number] Authorized Specialty Services Required 10/03/2024 04/04/2026 1 1 Scheduling Instructions Per Tamara Celaya, not appropriate for Dr. Dee. Please schedule with general cardiology Encounter Details Date Type Department Care Team (Late st Contact Info) Description 10/03/2024 Orders Only [facility] [place] [facility] [address] [place] [address] Ivy Karimi, [facility] [...] to transfer her cardiology care to from [place] documented in this encounter Plan of Treatment [...] documented as of this encounter Care Teams Plastic Maker Relationship Specialty Start Date End Date Mario Herrera MD [address] [place] [address] PCP - General 09/04/20 documented as of this encounter
--- OUTSIDE RECORDS SUMMARY | 2024-10-17 09:03 | XMS_ITS | Clinical Summary ---
Author Organization [facility] Address [address] [place] [address] Care Team Providers Care Emergency Room Rn Name Role Phone Mario Herrera MD Primary Care Provider + [phone] Allergies Active Allergy Reactions Criticality Noted Date [...] unspecified vessel or lesion type, unspecified whether [place] or transplanted heart 07/29/2020 Overview (01/24/2022): Regulatory Update January 2022 Intraabdominal mass 06/04/2020 Right middle lobe syndrome 12/11/2018 COPD (chronic obstructive pulmonary disease) Tobacco abuse counseling 02/06/2018 Resolved Problems Problem Noted Date Diagnosed Date Resolved Date Right lower quadrant abdominal mass 11/13/2020 11/15/2020 Encounters Date Type Department Care Team Description 10/03/2024 Orders Only [facility] [place] [facility] [address] [place] [address] Ivy Karimi, RN Hyperlipidemia, unspecified hyperlipidemia type [...] 2014 UKY-Zoster Vaccines (1 of 2) 2019 [id number] Vaccine (3 - 2023- season) 2023 05/06/2020, [...] this topic Medical Devices Implanted Type Area Information Systems Security Specialist Device Identifier Shelf Expiration Date Model / Serial / Lot Stent Stent N/A: Other (See Comments) Description:Celiac artery Insurance AETNA [facility] MEDICAID Care Teams Emergency Room Rn Relationship Specialty Start Date End Date Mario Herrera MD [address] [place] [address] PCP - General 09/04/20
--- NOTE | 2024-10-17 09:49 | EXP.PAIN.SOA ---
[facility] Disclaimer: The information contained in this section may have been updated after the patient was seen, as this information can be updated by other users. Medical History Claudication Swelling Calf pain Upper respiratory infection COVID Nasal congestion Maxillary sinusitis right maxillary sinusitis per CT head/brain sd Bronchitis TMJ (dislocation of temporomandibular joint) Left ear pain History of recurrent pneumonia Hammertoes of both feet Tailor's bunion of right foot Mass of skin of right foot Angina pectoris Abnormal abdominal CT scan Acute embolism and thrombosis of superficial vein of right arm Hyperglycemia Pre-op evaluation Biliary stent obstruction Chronic sinusitis Sprain of right ankle Community acquired pneumonia Acute sinusitis Hypokalemia COPD mixed type Open wound of left great toe Unspecified open wound of left great toe with damage to nail, initial encounter Pain of toe Onychocryptosis Eosinophilia Hyperlipidemia Encounter for screening for malignant neoplasm of lung in current smoker with 30 pack year history or greater Tobacco abuse disorder Smoking cessation Tobacco abuse counseling Right middle lobe syndrome History of recurrent pneumonia COPD (chronic obstructive pulmonary disease) Exertional shortness of breath Encounter for Postoperative Care Both of the lesions removed were consistent with epidermoid cysts. Edema of soft tissue of right ankle region Dyspnea Foot sprain Right carotid bruit CAD (coronary artery disease) Left arm numbness Surgical History History of cholecystectomy History of abdominal surgery H/O total hysterectomy Family History Mother Lung cancer Other Cancer Coronary artery disease Heart attack Hyperlipidemia Hypertension Thyroid disorder Social History Smoking Status: Current every day smoker tobacco type: cigarettes packs per day: 1 years smoked: 40 second hand exposure: No alcohol intake: never substance use type: denies use current occupational status: other Travel in the last 8 weeks?: None household members: family housing: house marital status: current occupation: [employer] current occupational exposures/hazards: No caffeine: Yes PM Subjective & Objective Subjective Subjective:: Patient is a pleasant 54-year-old female who presents today for 2-week follow-up. Patient rates her pain today at a 2 out of 10. She denies any new falls or injuries. Patient does state that she does believe the stimulator really did help however she is still undecided whether or not if she wants to proceed forward with the implant. Patient states she would like a little bit more time. Her Shahbaz has been reviewed and is appropriate. Review of Systems: General: No recent weight changes, no fever, no sleep disturbances Respiratory: No cough, no shortness of air, no recurring pulmonary infections Cardiovascular/peripheral vascular: No chest pain, no palpitations, no edema, no shortness of breath Gastrointestinal: No new onset incontinence, normal bowel movements reported Genitourinary: No new onset incontinence Musculoskeletal: Low back pain, leg pain Psychiatric: [Normal mood/affect] Neurological: [Denies weakness in extremities], [denies balance issues] Pain at rest (0-10 scale): 2 Objective Objective:: Physical Exam: General: Alert and oriented x3, no acute distress, pleasant and cooperative Lungs: Respirations even and unlabored, symmetrical chest expansion Eyes: PERRL Musculoskeletal: Flexion and extension of lumbar [spine] somewhat guarded secondary to pain, [antalgic gait noted] Neurological: Speech clear, no gross sensory deficit Has patient had previous pain injection?: No Conservative treatment options previously tried: Home exercise plan Length of treatment: Longer than 12 weeks Meds Home Medications and Allergies Home Medications ?Medication ?Instructions ?Recorded ?Confirmed ?Type ondansetron 4 mg disintegrating 4 mg PO Q8H PRN nausea and 04/28/23 10/08/24 Rx tablet vomiting 5 days #10 tabs clopidogrel 75 mg tablet (Plavix) 75 mg PO DAILY #90 tabs 08/16/23 10/08/24 Rx fluticasone propionate 50 2 spray intranasal DAILY 90 days 08/16/23 10/08/24 Rx mcg/actuation nasal #16 grams spray,suspension (Flonase Allergy Relief) cetirizine 10 mg tablet (All Day 10 mg PO DAILY #90 tabs 11/10/23 10/08/24 Rx Allergy (cetirizine)) ipratropium 0.5 mg-albuterol 3 mg 3 ml inhalation QID PRN shortness 03/04/24 10/08/24 Rx (2.5 mg base)/3 mL nebulization of breath or wheezing 90 days #270 soln mL fluticasone fur. 200 mcg-umeclid 1 inh inhalation DAILY 90 days #90 12/02/24 06/17/25 Rx 62.5 mcg-vilant 25 mcg ea inhalat.powder (Trelegy Ellipta) bisoprolol fumarate 5 mg tablet 10 mg PO DAILY 04/23/24 10/08/24 History montelukast 10 mg tablet 10 mg PO DAILY 04/25/24 10/08/24 History levalbuterol tartrate 45 2 inh inhalation Q6H PRN shortness 05/30/24 10/08/24 Rx mcg/actuation aerosol inhaler of breath or wheezing 90 days #15 (Xopenex HFA) grams ammonium lactate 12 % topical cream 1 applic topical BID dry skin, 07/08/24 10/08/24 Rx callus care 30 days #385 grams aspirin 81 mg tablet,delayed 81 mg PO DAILY thiiner #90 tabs 07/15/24 10/08/24 Rx release azelastine 137 mcg (0.1 %) nasal 2 spray intranasal HS 90 days #30 08/05/24 10/08/24 Rx spray mL pantoprazole 40 mg tablet,delayed See Rx Instructions .Route BID 08/05/24 10/08/24 Rx release #180 tabs mupirocin 2 % topical ointment 1 applic topical BID infection 14 09/02/24 10/08/24 Rx days #22 grams rosuvastatin 40 mg tablet See Rx Instructions .Route 09/17/24 10/08/24 Rx .COMPLEX #90 tabs sulfamethoxazole 800 1 tab PO BID #20 tabs 09/27/24 10/08/24 Rx mg-trimethoprim 160 mg tablet amitriptyline 25 mg tablet 25 mg PO HS #30 tabs 10/02/24 10/08/24 Rx famotidine 20 mg tablet 20 mg PO DAILY #30 tabs 10/07/24 10/08/24 Rx gabapentin 300 mg capsule See Rx Instructions .Route 10/07/24 10/08/24 Rx .COMPLEX Pain #60 caps levocetirizine 5 mg tablet mg PO 10/07/24 10/08/24 History oxycodone-acetaminophen 5 mg-325 1 tab PO DAILY PRN pain #20 tabs 10/07/24 10/08/24 Rx mg tablet (Percocet) New Prescriptions to Start Prescriptions: Allergies Allergy/AdvReac Type Severity Reaction Status Date / Time fluoxetine (From Prozac) Allergy Intermediate I-RASH Verified 10/08/24 11:06 Penicillins Allergy Intermediate I-RASH Verified 10/08/24 11:06 tramadol AdvReac dizziness, Verified 10/08/24 11:06 sweats Assessment and Plan *Assessment and plan (1) Degenerative joint disease (DJD) of lumbar spine: Status: Chronic Category: Medical Code(s): M47.816 - Spondylosis without myelopathy or radiculopathy, lumbar region (2) Lumbar radiculopathy: Status: Chronic Category: Medical Code(s): M54.16 - Radiculopathy, lumbar region Plan I did discuss with the patient that I do want her happy with her choice and that she can have as much time as she needs to really think on whether or not this was beneficial. We will follow-up with her in 2 months for reevaluation of symptoms and plan of care. Patient agrees with this option. Patient has been instructed to contact the clinic with any concerns before the next appointment. Dr. Crouch has reviewed this note and agrees with this plan of care. This note was dictated using voice recognition software and make contain errors or omissions. All injections are used with Lidocaine, Bupivacaine and dexamethasone. Occasionally urine drug screen is needed to verify patient's compliance with our office pain contract. This is ordered based off specific treatments related to chronic pain with the potential to abuse certain medications.
[2024-10-17 11:45] VITALS: BP 129/72; PULSE 63; RESP 14; O2SAT 100; BMI 21.2
== END 2024-10-17 23:59 | disposition home or self-care (01) ==
PROVIDERS: PCP Family Medicine; Visit Provider Nurse Practitioner Family
DX: M47.26 Other spondylosis with radiculopathy, lumbar region (principal)
CPT/HCPCS: 99212; G0463

== ENCOUNTER 2024-11-07 09:05 | Outpatient (CLI) | payer OTHER, SELFPAY ==
--- NOTE | 2024-11-07 09:08 | XR_ITS ---
FINAL REPORT CLINICAL HISTORY: URI Cough, congestion, chest tight COMPARISON: 09/20/2024 FINDINGS: CHEST 2 VIEWS There are increased markings bilateral lung bases compatible with pneumonia. The findings are worse on the right than the left. There is a tiny right pleural effusion. There are underlying emphysematous changes. The mediastinum has a normal appearance. The cardiac silhouette is unremarkable. IMPRESSION: Bibasilar pneumonia, greater on the right. Reviewed, Interpreted and Dictated by Norma Mittal MD Transcribed by Alicja Mena Authenticated and [facility]
--- OUTSIDE RECORDS SUMMARY | 2024-11-07 09:08 | XMS_ITS | Encounter Summary ---
Author Organization Healthcare Address [address] [place] [address] Care Team Providers Care Cement Boat And Barge Loader Name Role Phone Mario Herrera MD Primary Care Provider + [phone] Encounter Details Date Type Department Care Team (Late st Contact Info) Description 10/03/2024 Orders Only [facility] [place] [facility] [address] [place] [address] Ivy Wright, RN [facility] ADMI Hyperlipidemia, unspecified [...] as of this encounter Miscellaneous Notes * Addendum Note - Ivy Wright RN - 10/03/2024 11:54 AM EDTAddended by: IVY WRIGHT on: 10/31/2024 11:52 AM Modules accepted: Orders * Progress Notes - Ivy Wright RN - 10/03/2024 11:54 AM EDT Patient requesting to transfer her cardiology care to from [place] documented in this encounter Plan of Treatment Not on file documented as of this encounter Visit Diagnoses Diagnosis Hyperlipidemia, unspecified hyperlipidemia type- Primary Bilateral claudication of lower limb PVD (peripheral vascular disease) ([facility]) Unspecified peripheral vascular disease Carotid artery stenosis without cerebral infarction, bilateral documented in this encounter Additional Health Concerns Assessment Noted Time A fall risk assessment has been complete d for the patient 12/10/2020 9:13 AM EDT documented as of this encounter Care Teams Cement Boat And Barge Loader Relationship Specialty Start Date End Date Mario Herrera MD [address] [place] [address] PCP - General 09/04/20 documented as of this encounter
--- OUTSIDE RECORDS SUMMARY | 2024-11-07 09:08 | XMS_ITS | Clinical Summary ---
Author Organization [facility] Address [address] [place] [address] Care Team Providers Care Refinery Pipeline Operator Name Role Phone Mario Herrera MD Primary Care Provider + [phone] Allergies Active Allergy Reactions Criticality Noted Date [...] unspecified vessel or lesion type, unspecified whether [place] or transplanted heart 07/29/2020 Overview (01/24/2022): Regulatory Update January 2022 Intraabdominal mass 06/04/2020 Right middle lobe syndrome 12/11/2018 COPD (chronic obstructive pulmonary disease) Tobacco abuse counseling 02/06/2018 Resolved Problems Problem Noted Date Diagnosed Date Resolved Date Right lower quadrant abdominal mass 11/13/2020 11/15/2020 Encounters Date Type Department Care Team Description 10/03/2024 Orders Only [facility] [place] [facility] [address] [place] [address] Ivy Karimi, RN Hyperlipidemia, unspecified hyperlipidemia type [...] 2014 UKY-Zoster Vaccines (1 of 2) 2019 [id number] Vaccine (3 - 2023- season) 2023 05/06/2020, 04/20/2020 UKY-Influenza Vaccine (#1) 2024 01/23/2020 UKY-Pneumococcal Vaccine: 50 + Years [...] this topic Medical Devices Implanted Type Area Sales Assoc Device Identifier Shelf Expiration Date Model / Serial / Lot Stent Stent N/A: Other (See Comments) Description:Celiac artery Insurance [employer] [facility] MEDICAID Care Teams Refinery Pipeline Operator Relationship Specialty Start Date End Date Mario Herrera MD [address] [place] [address] PCP - General 09/04/20
[2024-11-07 14:33] LABS: Coronavirus 19, PCR Not Detected (NotDetected); Influenza A, PCR Not Detected (NotDetected); Influenza B, PCR Not Detected (NotDetected)
== END 2024-11-07 23:59 | disposition home or self-care (01) ==
LOC: RAD 09:06
PROVIDERS: PCP Family Medicine; Visit Provider Family Medicine
DX: J18.9 Pneumonia, unspecified organism (principal); J02.9 Acute pharyngitis, unspecified
CPT/HCPCS: 71046; 87636

== ENCOUNTER 2024-12-11 11:02 | Outpatient (CLI) | payer OTHER, SELFPAY ==
--- OUTSIDE RECORDS SUMMARY | 2024-12-11 11:17 | XMS_ITS | Encounter Summary ---
Author Organization Healthcare Address [address] [place] [address] Care Team Providers Care Passenger Solicitor Name Role Phone Mario Herrera MD Primary Care Provider + [phone] Encounter Details Date Type Department Care Team (Late st Contact Info) Description 10/03/2024 Orders Only [facility] [place] [facility] [address] [place] [address] Ivy Wright, RN HOSP. SPECIAL DIAGNOSTIC FACILITIES [...] to transfer her cardiology care to from [place] documented in this encounter Plan of Treatment Not on file documented as of this encounter Visit Diagnoses Diagnosis Hyperlipidemia, unspecified hyperlipidemia type- Primary Bilateral claudication of lower limb PVD (peripheral vascular disease) ([facility]) Unspecified peripheral vascular disease Carotid artery stenosis without cerebral infarction, bilateral documented in this encounter Additional Health Concerns Assessment Noted Time A fall risk assessment has been complete d for the patient 12/10/2020 9:13 AM EDT documented as of this encounter Care Teams Passenger Solicitor Relationship Specialty Start Date End Date Mario Herrera MD [address] [place] [address] PCP - General 09/04/20 documented as of this encounter
--- OUTSIDE RECORDS SUMMARY | 2024-12-11 11:17 | XMS_ITS | Clinical Summary ---
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 [place] [id number] Ivy Karimi, RN Hyperlipidemia, unspecified hyperlipidemia type [...] 2014 UKY-Zoster Vaccines (1 of 2) 2019 [id number] Vaccine (3 - 2023- season) 2023 05/06/2020, [...] this topic Medical Devices Implanted Type Area Craps Dealer Device Identifier Shelf Expiration Date Model / Serial / Lot Stent Stent N/A: Other (See Comments) Description:Celiac artery Insurance AETNA [facility] MEDICAID Care Teams Assembly Person Relationship Specialty Start Date End Date Mario Herrera MD [address] [place] [address] [place] [address] PCP - General 09/04/20
[2024-12-11 12:21] LABS: Cholesterol 106 mg/dl (140-200); HDL Cholesterol 50 mg/dl (40-60); Triglycerides 138 mg/dl (30-150)
[2024-12-11 12:55] LABS: Thyroid Stimulating Hormone 2.02 uIU/mL (0.465-4.68)
== END 2024-12-11 23:59 | disposition home or self-care (01) ==
LOC: LAB 11:02
PROVIDERS: PCP Family Medicine; Visit Provider Family Medicine
DX: E78.5 Hyperlipidemia, unspecified (principal); R53.83 Other fatigue
CPT/HCPCS: 80061; 84443

== ENCOUNTER 2024-12-16 08:36 | Outpatient (POV) | payer OTHER, SELFPAY ==
--- OUTSIDE RECORDS SUMMARY | 2024-12-16 08:40 | XMS_ITS | Encounter Summary ---
Author Organization Healthcare Address [address] [place] [address] Care Team Providers Care Literature Teacher Name Role Phone Mario Herrera MD Primary Care Provider + [phone] Reason for Visit * Reason Onset Date Comments [facility] Same Day Appt/Overbook Request 12/11/2024 Encounter Details Date Type Department Care Team (Late st Contact Info) Description 12/11/2024 Telephone [facility] [address] [facility] 5th Floor [address] [place] [address] None, None [address] [place] [address] [facility]CN Same Day Appt/Overbook Request Social History Tobacco Use Types Packs/Day Years [...] as of this encounter Miscellaneous Notes * Telephone Encounter - Addison Garcia - 12/11/2024 11:12 AM EDT Same Day Appt/Overbook Request Reason for Call: [facility]/ Referring office is asking is there any additional info required for thisappt to be scheduled , I did advise her that its Pending images , they have not gotten a image request , please follow-up Best contact number: Other: [phone] Optimal time of day to reach caller: ANYTIME Additional comments/information from caller: None Note: Please do not reply to this message. Follow-up communication and further actions as a result of this message need to be communicated with the patient directly, if the patient is not active onMyChart. If the patient is active on MyChart, they will receive notification of the communication/outcome via [employer]. documented in this encounter Plan of Treatment Not on file documented as of this encounter Visit Diagnoses Not on filedocumented in this encounter Additional Health Concerns Assessment Noted Time A fall risk assessment has been complete d for the patient 12/10/2020 9:13 AM EDT documented as of this encounter Care Teams Literature Teacher Relationship Specialty Start Date End Date Mario Herrera MD [address] [place] [address] PCP - General 09/04/20 documented as of this encounter
--- OUTSIDE RECORDS SUMMARY | 2024-12-16 08:40 | XMS_ITS | Encounter Summary ---
Author Organization Healthcare Address [address] [place] [address] Care Team Providers Care Engagement Specialist Name Role Phone Mario Herrera MD Primary Care Provider + [phone] Encounter Details Date Type Department Care Team (Late st Contact Info) Description 10/03/2024 Orders Only [facility] [place] [facility] [address] [place] [address] Ivy Wright, RN HOSP. SPECIAL DIAGNOSTIC FACILITIES [...] to transfer her cardiology care to from [place] documented in this encounter Plan of Treatment Not on file documented as of this encounter Visit Diagnoses Diagnosis Hyperlipidemia, unspecified hyperlipidemia type- Primary Bilateral claudication of lower limb PVD (peripheral vascular disease) ([facility]) Unspecified peripheral vascular disease Carotid artery stenosis without cerebral infarction, bilateral documented in this encounter Additional Health Concerns Assessment Noted Time A fall risk assessment has been complete d for the patient 12/10/2020 9:13 AM EDT documented as of this encounter Care Teams Engagement Specialist Relationship Specialty Start Date End Date Mario Herrera MD [address] [place] [address] PCP - General 09/04/20 documented as of this encounter
--- OUTSIDE RECORDS SUMMARY | 2024-12-16 08:40 | XMS_ITS | Clinical Summary ---
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 [address] [place] [address] None, None [facility] Same Day Appt/Overbook Request 10/03/2024 Orders Only [facility] [place] [facility] [address] [place] [id number] Ivy Karimi, RN Hyperlipidemia, unspecified hyperlipidemia type [...] 2014 UKY-Zoster Vaccines (1 of 2) 2019 [id number] Vaccine (3 - 2023- season) 2023 05/06/2020, [...] this topic Medical Devices Implanted Type Area Fitting Room Inspector Device Identifier Shelf Expiration Date Model / Serial / Lot Stent Stent N/A: Other (See Comments) Description:Celiac artery Insurance AETNA [facility] MEDICAID Care Teams Machine Feller Relationship Specialty Start Date End Date Mario Herrera MD [address] [place] [address] [place] [address] PCP - General 09/04/20
--- NOTE | 2024-12-16 09:04 | XR_ITS ---
FINAL REPORT CLINICAL HISTORY: Neck pain, altered engraver letter, numbness in hands and arms. FINDINGS: Lateral and odontoid views of the cervical spine were obtained. No AP view was provided. No acute bony abnormality is seen on the lateral view. Vertebral body heights are preserved. There is no significant disc space narrowing seen. IMPRESSION: Limited exam without AP view provided. No acute bony abnormality on the lateral view. Reviewed, Interpreted and Dictated by Leann Ruiz MD Transcribed by Anabel Calderon Authenticated and [facility]
--- NOTE | 2024-12-16 09:04 | A.OFFVIS_ITS ---
[facility] Disclaimer: The information contained in this section may have been updated after the patient was seen, as this information can be updated by other users. Medical History (Updated 12/16/24 @ 09:03 by Merlene Darling APRN) Wheeze Coughing Pneumonia Claudication Swelling Calf pain Upper respiratory infection COVID Nasal congestion Maxillary sinusitis Bronchitis TMJ (dislocation of temporomandibular joint) Left ear pain History of recurrent pneumonia Hammertoes of both feet Tailor's bunion of right foot Mass of skin of right foot Angina pectoris Abnormal abdominal CT scan Acute embolism and thrombosis of superficial vein of right arm Hyperglycemia Pre-op evaluation Biliary stent obstruction Chronic sinusitis Sprain of right ankle Community acquired pneumonia Acute sinusitis Hypokalemia COPD mixed type Open wound of left great toe Unspecified open wound of left great toe with damage to nail, initial encounter Pain of toe Onychocryptosis Eosinophilia Hyperlipidemia Encounter for screening for malignant neoplasm of lung in current smoker with 30 pack year history or greater Tobacco abuse disorder Tobacco abuse counseling Right middle lobe syndrome History of recurrent pneumonia COPD (chronic obstructive pulmonary disease) Exertional shortness of breath Encounter for Postoperative Care Edema of soft tissue of right ankle region Dyspnea Foot sprain Right carotid bruit CAD (coronary artery disease) Left arm numbness Surgical History History of cholecystectomy History of abdominal surgery H/O total hysterectomy Family History Mother Lung cancer Other Cancer Coronary artery disease Heart attack Hyperlipidemia Hypertension Thyroid disorder Social History Smoking Status: Current every day smoker tobacco type: cigarettes packs per day: 1 years smoked: 40 second hand exposure: No alcohol intake: never substance use type: denies use current occupational status: other Travel in the last 8 weeks?: None household members: family housing: house marital status: current occupation: [employer] current occupational exposures/hazards: No caffeine: Yes PM Subjective & Objective Subjective Subjective:: Patient is a pleasant 54-year-old female who presents today for follow-up. She rates her pain today at a 4 or 5 out of 10. Patient does state that she did feel like her stimulator trial did help however she does want to put this on hold because she does not have anyone to help her while she would be on postop restrictions. Patient does make mention that she is having a lot more pain in her neck with altered events and promotions assistant and numbness and tingling. Patient denies any new falls or injuries. Patient states that she just feels like it is continue to get worse and she frequently drops items. Patient does state this is very bothersome. Her Shahbaz has been reviewed and is appropriate. Review of Systems: General: No recent weight changes, no fever, no sleep disturbances Respiratory: No cough, no shortness of air, no recurring pulmonary infections Cardiovascular/peripheral vascular: No chest pain, no palpitations, no edema, no shortness of breath Gastrointestinal: No new onset incontinence, normal bowel movements reported Genitourinary: No new onset incontinence Musculoskeletal: Neck pain, bilateral arm numbness tingling, altered events and promotions assistant Psychiatric: [Normal mood/affect] Neurological: [Denies weakness in extremities], [denies balance issues] Pain at rest (0-10 scale): 5 Objective Objective:: Physical Exam: General: Alert and oriented x3, no acute distress, pleasant and cooperative Lungs: Respirations even and unlabored, symmetrical chest expansion Eyes: PERRL Musculoskeletal: Flexion and extension of cervical [spine] somewhat guarded s econdary to pain, [antalgic gait noted] positive Spurling's test Neurological: Speech clear, no gross sensory deficit Has patient had previous pain injection?: No Conservative treatment options previously tried: Home exercise plan Length of treatment: Longer than 12 weeks Meds Home Medications and Allergies Home Medications ?Medication ?Instructions ?Recorded ?Confirmed ?Type ondansetron 4 mg disintegrating 4 mg PO Q8H PRN nausea and 04/28/23 12/11/24 Rx tablet vomiting 5 days #10 tabs cetirizine 10 mg tablet (All Day 10 mg PO DAILY #90 ta bs 11/10/23 12/11/24 Rx Allergy (cetirizine)) montelukast 10 mg tablet 10 mg PO DAILY 04/25/2411/23 History ammonium lactate 12 % topical cream 1 applic topical B ID dry skin, 07/08/24 12/11/24 Rx callus care 30 days #385 grams aspirin 81 mg tablet,delayed 81 mg PO DAILY thiiner #9 0 tabs 07/15/24 12/11/24 Rx release pantoprazole 40 mg tablet,delayed See Rx Instructions .Route BID 08/05/24 12/11/24 Rx release #180 tabs mupirocin 2 % topical ointment 1 applic topical BID in fection 14 09/02/24 12/11/24 Rx days #22 grams rosuvastatin 40 mg tablet See Rx Instructions .Route 0 09/17/24 12/11/24 Rx .COMPLEX #90 tabs amitriptyline 25 mg tablet 25 mg PO HS #30 tabs 12/11/24 Rx famotidine 20 mg tablet 20 mg PO DAILY #30 tabs 09/2212/11/24 Rx gabapentin 300 mg capsule See Rx Instructions .Route 0 10/07/24 12/11/24 Rx .COMPLEX Pain #60 caps levocetirizine 5 mg tablet 5 mg PO DIRECTED 5 12/11/24 History oxycodone-acetaminophen 5 mg-325 1 tab PO DAILY PRN pa in #20 tabs 10/07/24 12/11/24 Rx mg tablet (Percocet) bisoprolol fumarate 5 mg tablet See Rx Instructions .R oute 11/04/24 12/11/24 Rx .COMPLEX #135 tabs clopidogrel 75 mg tablet See Rx Instructions .Route 0 11/14/24 12/11/24 Rx .COMPLEX #90 tabs azelastine 137 mcg (0.1 %) nasal 2 spray intranasal HS 90 days #30 12/02/24 12/11/24 Rx spray mL fluticasone fur. 200 mcg-umeclid 1 inh inhalation SUNITHA Y 90 days #90 12/02/24 12/11/24 Rx 62.5 mcg-vilant 25 mcg ea inhalat.powder (Trelegy Ellipta) fluticasone propionate 50 2 spray intranasal DAILY 90 days 12/02/24 12/11/24 Rx mcg/actuation nasal #16 grams spray,suspension (Flonase Allergy Relief) ipratropium 0.5 mg-albuterol 3 mg 3 ml inhalation QID PRN shortness 12/02/24 12/11/24 Rx (2.5 mg base)/3 mL nebulization of breath or wheezing 90 days #270 soln mL levalbuterol tartrate 45 2 inh inhalation Q6H PRN jesse rtness 12/02/24 12/11/24 Rx mcg/actuation aerosol inhaler of breath or wheezing 90 days #15 (Xopenex HFA) grams montelukast 10 mg tablet 10 mg PO QPM 90 days #90 tab s 12/02/24 12/11/24 Rx New Prescriptions to Start Prescriptions: Allergies Allergy/AdvReac Type Severity Reaction Status Date / Time fluoxetine (From Prozac) Allergy Intermediate I-RASH Verified 12/11/24 11:32 Penicillins Allergy Intermediate I-RASH Verified 12/11/24 11:32 tramadol AdvReac dizziness, Verified 12/11/24 11:32 sweats Assessment and Plan *Assessment and plan (1) Cervical radiculopathy: Status: Acute Category: Medical Code(s): M54.12 - Radiculopathy, cervical region (2) Cervical pain (neck): Status: Acute Category: Medical Code(s): M54.2 - Cervicalgia Plan I did discuss with the patient that I would like to order updated cervical imaging as this is not a new issue however has progressively worsened. Patient has had chronic neck symptoms that do radiate into her bilateral upper extremities for longer than 6 months. Patient does have altered events and promotions assistant. I will put in an x-ray order as well as an MRI without contrast of her cervical spine. Patient was given physician guided exercises for her neck and radicular symptoms. Patient will return to clinic in 1 month to follow-up on her imaging. We did also discuss the stimulator and we will continue to check in and see how she is doing and if she would like to proceed forward with this option at a later date. Patient agrees with this plan of care. Patient has been instructed to contact the clinic with any concerns before the next appointment. Dr. Crouch has reviewed this note and agrees with this plan of care. This note was dictated using voice recognition software and make contain errors or omissions. All injections are used with Lidocaine, Bupivacaine and dexamethasone. Occasionally urine drug screen is needed to verify patient's compliance with our office pain contract. This is ordered based off specific treatments related to chronic pain with the potential to abuse certain medications.
[2024-12-16 09:17] VITALS: BP 131/67; PULSE 65; RESP 18; O2SAT 95; BMI 21.2
== END 2024-12-16 23:59 | disposition home or self-care (01) ==
PROVIDERS: PCP Family Medicine; Visit Provider Nurse Practitioner Family
DX: M54.12 Radiculopathy, cervical region (principal)
CPT/HCPCS: 72040; 99212; G0463

== ENCOUNTER 2025-01-15 06:07 | Day surgery (SDC) | payer OTHER, SELFPAY ==
[2025-01-07 12:24] VITALS: BMI 21.2
--- NOTE | 2025-01-12 11:51 | EXP.HP ---
History of Present Illness *Admission Date: 01/15/25 *History of present illness: Mrs. Hirsch is a 54-year-old female who is here for diagnostic upper endoscopy. The patient does have dyspepsia with epigastric abdominal discomfort, bloating, early satiety and heartburn. She also has had some dysphagia. She is on Protonix twice daily as well as famotidine. The patient is a long-term smoker since the age of 13. She reports no family history of gastric or esophageal cancer. The patient states that this often feels like a air lock . She reports regular bowel function. She has had no nausea or weight loss. This is her first upper endoscopy. The examination is deemed medically necessary for diagnostic EGD. The patient has been seen, interviewed and examined prior to the procedure by both myself and the anesthesia provider. [facility] Disclaimer: The information contained in this section may have been updated after the patient was seen, as this information can be updated by other users. Medical History Wheeze Coughing Pneumonia Claudication Swelling Calf pain Upper respiratory infection COVID Nasal congestion Maxillary sinusitis right maxillary sinusitis per CT head/brain sd Bronchitis TMJ (dislocation of temporomandibular joint) Left ear pain History of recurrent pneumonia Hammertoes of both feet Tailor's bunion of right foot Mass of skin of right foot Angina pectoris Abnormal abdominal CT scan Acute embolism and thrombosis of superficial vein of right arm Hyperglycemia Pre-op evaluation Biliary stent obstruction Chronic sinusitis Sprain of right ankle Community acquired pneumonia Acute sinusitis Hypokalemia COPD mixed type Open wound of left great toe Unspecified open wound of left great toe with damage to nail, initial encounter Pain of toe Onychocryptosis Eosinophilia Hyperlipidemia Encounter for screening for malignant neoplasm of lung in current smoker with 30 pack year history or greater Tobacco abuse disorder Smoking cessation Tobacco abuse counseling Right middle lobe syndrome History of recurrent pneumonia COPD (chronic obstructive pulmonary disease) Exertional shortness of breath Encounter for Postoperative Care Both of the lesions removed were consistent with epidermoid cysts. Edema of soft tissue of right ankle region Dyspnea Foot sprain Right carotid bruit CAD (coronary artery disease) Left arm numbness Surgical History History of cholecystectomy History of abdominal surgery H/O total hysterectomy Family History Mother Lung cancer Other Cancer Coronary artery disease Heart attack Hyperlipidemia Hypertension Thyroid disorder Social History (Updated 01/15/25 @ 06:21 by Alaina Salas RN) Smoking Status: Current every day smoker tobacco type: cigarettes packs per day: 1 years smoked: 40 second hand exposure: No alcohol intake: never substance use type: denies use current occupational status: other Travel in the last 8 weeks?: None household members: family housing: house marital status: current occupation: [employer] current occupational exposures/hazards: No caffeine: Yes Have you lived/traveled outside [place] in past 30 days?: No Contact w/someone who lives/traveled outside US past 30 days?: No Exposure to someone with infectious disease in past 14 days?: No Do you have a fever (greater than 100.4 F or 38 C)?: No Have you tested positive for COVID-19?: No Exposed to someone with COVID-19 in past 14 days?: No Do you have a sore throat?: No Do you have a cough?: No Do you have any weakness?: No Are you experiencing any nausea/vomitting?: No Do you have any diarrhea?: No Are you experiencing any unusual bleeding?: No Do you have any muscle aches/pain?: No Do you have any abdominal pain?: No Are you experiencing loss of taste or smell?: No Other Medical History Have you received the Flu Vaccine for this season: Yes Have you received the Pneumonia Vaccine: Yes Review of Systems Review of Systems Review of systems (narrative): Negative *Cardiovascular Comments: Negative *Gastrointestinal Comments: Negative *Genitourinary Comments: Negative *Musculoskeletal Comments: Negative *Neurologic Comments: Negative Meds Home Medications and Allergies Home Medications ?Medication ?Instructions ?Recorded ?Confirmed ?Type cetirizine 10 mg tablet (All Day 10 mg PO DAILY #90 tabs 11/10/23 01/15/25 Rx Allergy (cetirizine)) montelukast 10 mg tablet 10 mg PO DAILY 04/25/24 01/15/25 History ammonium lactate 12 % topical cream 1 applic topical BID dry skin, 07/08/24 01/15/25 Rx callus care 30 days #385 grams aspirin 81 mg tablet,delayed 81 mg PO DAILY thiiner #90 tabs 07/15/24 01/15/25 Rx release pantoprazole 40 mg tablet,delayed See Rx Instructions .Route BID 08/05/24 01/15/25 Rx release #180 tabs amitriptyline 25 mg tablet 25 mg PO HS #30 tabs 10/02/24 01/15/25 Rx gabapentin 300 mg capsule See Rx Instructions .Route 10/07/24 01/15/25 Rx .COMPLEX Pain #60 caps levocetirizine 5 mg tablet 5 mg PO DIRECTED 10/07/24 01/15/25 History oxycodone-acetaminophen 5 mg-325 1 tab PO DAILY PRN pain #20 tabs 10/07/24 01/15/25 Rx mg tablet (Percocet) bisoprolol fumarate 5 mg tablet See Rx Instructions .Route 11/04/24 01/15/25 Rx .COMPLEX #135 tabs clopidogrel 75 mg tablet See Rx Instructions .Route 11/14/24 01/15/25 Rx .COMPLEX #90 tabs azelastine 137 mcg (0.1 %) nasal 2 spray intranasal HS 90 days #30 12/02/24 01/15/25 Rx spray mL fluticasone fur. 200 mcg-umeclid 1 inh inhalation DAILY 90 days #90 12/02/24 01/15/25 Rx 62.5 mcg-vilant 25 mcg ea inhalat.powder (Trelegy Ellipta) fluticasone propionate 50 2 spray intranasal DAILY 90 days 12/02/24 01/15/25 Rx mcg/actuation nasal #16 grams spray,suspension (Flonase Allergy Relief) ipratropium 0.5 mg-albuterol 3 mg 3 ml inhalation QID PRN shortness 12/02/24 01/15/25 Rx (2.5 mg base)/3 mL nebulization of breath or wheezing 90 days #270 soln mL levalbuterol tartrate 45 2 inh inhalation Q6H PRN shortness 12/02/24 01/15/25 Rx mcg/actuation aerosol inhaler of breath or wheezing 90 days #15 (Xopenex HFA) grams famotidine 20 mg tablet See Rx Instructions .Route 01/02/25 01/15/25 Rx .COMPLEX #90 tabs rosuvastatin 40 mg tablet (Crestor) See Rx Instructions .Route .COMPLEX 01/07/25 01/15/25 History New Prescriptions to Start Prescriptions: Allergies Allergy/AdvReac Type Severity Reaction Status Date / Time fluoxetine (From Prozac) Allergy Intermediate I-RASH Verified 01/15/25 06:28 Penicillins Allergy Intermediate I-RASH Verified 01/15/25 06:28 tramadol AdvReac dizziness, Verified 01/15/25 06:28 sweats Exam *Routine HEENT Exam Head: Present normocephalic Eye: Present EOMI and PERRL ENT: Present mucous membranes moist *Routine Neck Exam Neck: Present supple *Routine Respiratory Exam Respiratory: Present CTA bilaterally *Routine Cardiovascular Exam Cardiovascular: Present RRR *Routine Abdominal Exam Abdominal: Present soft and normoactive bowel sounds; Absent tenderness *Routine Rectal Exam Rectal:: deferred *Routine Genitalia Exam Genitalia:: deferred *Routine Extremities Exam Extremities: Absent cyanosis, clubbing or edema *Routine Skin Exam Skin: Present warm; Absent rash *Routine Neurological Exam Neurological: Present alert and oriented X3 Assessment and Plan *Assessment and plan (1) Epigastric pain: Status: Acute Category: Medical Code(s): R10.13 - Epigastric pain (2) Generalized abdominal pain: Status: Acute Category: Medical Code(s): R10.84 - Generalized abdominal pain (3) Early satiety: Status: Acute Category: Medical Code(s): R68.81 - Early satiety (4) Bloating: Status: Acute Category: Medical Code(s): R14.0 - Abdominal distension (gaseous) (5) Dysphagia: Status: Acute Category: Medical Code(s): R13.10 - Dysphagia, unspecified (6) Dyspepsia: Status: Acute Category: Medical Code(s): R10.13 - Epigastric pain (7) Heartburn: Status: Acute Category: Medical Code(s): R12 - Heartburn Plan A/P: 1. Heartburn with reflux, epigastric pain and dyspepsia is the preprocedural diagnosis. The patient also has dysphagia. Her GERD and dyspepsia are not controlled with Protonix or famotidine. The patient will be anesthetized/sedated using MAC sedation. The patient has been seen and examined. Cardiac and lung assessment prior to the examination is stable. Proceed with planned diagnostic EGD.
[2025-01-15 06:16] VITALS: BP 153/65; PULSE 62; RESP 18; TEMP 36.6; O2SAT 98; BMI 21.2
[2025-01-15] MEDS: LACTATED RINGERS 1000ML 1,000 ML 50 ML IV (06:35)
--- NOTE | 2025-01-15 07:00 | HMH.PROCNOTE ---
[facility] Procedure Note Date: 01/15/25 Time: 07:46 Procedure Note:: Upper Endoscopy Procedure Report: Esophagogastroduodenoscopy with cold biopsies and TTS balloon dilation Endoscopost: James Jay II, MD Referring Physician: JOLANTA Albright Date of Procedure: January 15, 2025 Equipment: Olympus GIF-1100 standard upper endoscope Sedation: MAC sedation Indications: Mrs. Hirsch is a 54-year-old female who is here for diagnostic upper endoscopy. The patient does have dyspepsia with epigastric abdominal discomfort, bloating, early satiety and heartburn. She also has had some dysphagia. She is on Protonix twice daily as well as famotidine. The patient is a long-term smoker since the age of 13. She reports no family history of gastric or esophageal cancer. The patient states that this often feels like a air lock . She reports regular bowel function. She has had no nausea or weight loss. This is her first upper endoscopy. The examination is deemed medically necessary for diagnostic EGD. The patient did have a colonoscopy with [facility] in September 2024 and had prolapsing grade 3 internal hemorrhoids which were banded. She also had 3 colon polyps (tubular adenoma x 1/hyperplastic polyps x 2) removed. Procedure: Prior to the procedure, a history and physical exam was performed, and patient's medications and allergies were reviewed. The risks, benefits and alternatives of the sedation and procedure were discussed with the patient. All questions were answered and informed consent was obtained. The patient was brought to the procedure room. Patient identification and proposed procedure were verified by the physician and the nurse. The patient was placed in a left lateral decubitus position and the scope was passed under direct vision. Throughout the procedure, the patient's blood pressure, pulse, and oxygen saturations were monitored continuously. The upper GI endoscopy was accomplished without difficulty. The patient tolerated the procedure well. Findings: The scope was passed directly into the upper esophagus and advanced to the third portion of the duodenum. The post bulbar duodenum, ampulla and duodenal bulb were normal with normal mucosa and conniventes. A cold biopsy was taken from the second portion of the duodenum for the disaccharidase assay. The scope was withdrawn through a normal duodenal bulb and pylorus into the stomach. There was some linear reactive gastropathy of the antrum. There was 1 antral nodule. Cold biopsies were taken from the antrum and nodule. The body and fundus of the stomach are normal. Upon retroflexion there was no hiatal hernia. The scope was then withdrawn into the esophagus. There was no evidence of reflux esophagitis or Barron's. There was a serrated Z-line. There were strong tertiary contractions and evidence of moderate esophageal dysmotility. The entire esophagus was dilated to 60 Setswana/20 mm with a TTS hydrostatic balloon. There was some mild resistance at the cricopharyngeus. The remainder of the esophageal mucosa was normal. Impression: 1. Cricopharyngeal spasm status post dilation to 20 mm 2. Nonerosive GERD with moderate esophageal dysmotility 3. Linear reactive gastropathy of antrum/nodular gastropathy Plan: I will follow-up the biopsies and disaccharidase assay. We will discuss treatment options including maintenance on fiber bowel regimen. The patient does have functional dyspepsia and functional GERD. Most of her symptoms of dyspepsia and GERD are related to and driven by lower intestinal gas pressure gradients/high gas pressure buildup resulting in backflow of bile and peptic fluid from the duodenum into the stomach (duodenal reflux). This gas production (carbon dioxide, hydrogen, methane, etc.) from the lower intestinal tract is the byproduct of colonic bacterial fermentation. This colonic fermentation occurs when there is more carbohydrate (dietary starches, sugars and high residue plant fiber) substrate that does not get digested (in the middle or small intestine) or occurs when there is colonic fecal buildup and colonic bacterial overgrowth. This indeed leads to bloating and the gas pressure buildup with gas pressure gradients that do drive backflow and dyspepsia.
--- NOTE | 2025-01-15 07:07 | EXP.ANES.CKL ---
[facility] Disclaimer: The information contained in this section may have been updated after the patient was seen, as this information can be updated by other users. Medical History Wheeze Coughing Pneumonia Claudication Swelling Calf pain Upper respiratory infection COVID Nasal congestion Maxillary sinusitis right maxillary sinusitis per CT head/brain sd Bronchitis TMJ (dislocation of temporomandibular joint) Left ear pain History of recurrent pneumonia Hammertoes of both feet Tailor's bunion of right foot Mass of skin of right foot Angina pectoris Abnormal abdominal CT scan Acute embolism and thrombosis of superficial vein of right arm Hyperglycemia Pre-op evaluation Biliary stent obstruction Chronic sinusitis Sprain of right ankle Community acquired pneumonia Acute sinusitis Hypokalemia COPD mixed type Open wound of left great toe Unspecified open wound of left great toe with damage to nail, initial encounter Pain of toe Onychocryptosis Eosinophilia Hyperlipidemia Encounter for screening for malignant neoplasm of lung in current smoker with 30 pack year history or greater Tobacco abuse disorder Smoking cessation Tobacco abuse counseling Right middle lobe syndrome History of recurrent pneumonia COPD (chronic obstructive pulmonary disease) Exertional shortness of breath Encounter for Postoperative Care Both of the lesions removed were consistent with epidermoid cysts. Edema of soft tissue of right ankle region Dyspnea Foot sprain Right carotid bruit CAD (coronary artery disease) Left arm numbness Surgical History History of cholecystectomy History of abdominal surgery H/O total hysterectomy Family History Mother Lung cancer Other Cancer Coronary artery disease Heart attack Hyperlipidemia Hypertension Thyroid disorder Social History (Updated 01/15/25 @ 06:21 by Alaina Salas RN) Smoking Status: Current every day smoker tobacco type: cigarettes packs per day: 1 years smoked: 40 second hand exposure: No alcohol intake: never substance use type: denies use current occupational status: other Travel in the last 8 weeks?: None household members: family housing: house marital status: current occupation: [employer] current occupational exposures/hazards: No caffeine: Yes Have you lived/traveled outside [place] in past 30 days?: No Contact w/someone who lives/traveled outside [place] past 30 days?: No Exposure to someone with infectious disease in past 14 days?: No Do you have a fever (greater than 100.4 F or 38 C)?: No Have you tested positive for COVID-19?: No Exposed to someone with COVID-19 in past 14 days?: No Do you have a sore throat?: No Do you have a cough?: No Do you have any weakness?: No Are you experiencing any nausea/vomitting?: No Do you have any diarrhea?: No Are you experiencing any unusual bleeding?: No Do you have any muscle aches/pain?: No Do you have any abdominal pain?: No Are you experiencing loss of taste or smell?: No [facility] Anesthesia Checklist Patient Identification Patient Identification: Arm Band and Family Structural Data Admitted From: Home Planned Operative Procedure/s: EGD Consent for Planned Operative Procedure(s) Verified: Yes Verified Documents: Surgical Consent and History and Physical NPO Status Verified Time NPO: 00:00 Additional verifications Patient : No Anesthesia Reactions: No Hx Blood Transfusions: No Blood Transfusion Reaction: No Cephalosporin Allergy: Yes Previous Colonoscopy: Yes Airway Assessment Mallampati Score:: Class II C-Spine Mobility Assessed: Yes TMJ Mobility Assessed: Yes Dentition: Edentulous Neurological Assessment Level of Consciousness: Awake, Alert, Appropriate and Follows Commands Hx Seizures: No Numbness or tingling in extremities: No Anesthesia Plan Anesthesia Risk discussed: Yes ASA Class: II Anesthesia Type: MAC Preoperative Comments Pre-Operative Comments: COPD. burning in throat.
[2025-01-15 07:45] VITALS: BP 97/55; PULSE 75; RESP 14; TEMP 36.1; O2SAT 95
[2025-01-15 07:55] VITALS: BP 92/48; PULSE 68; RESP 15; TEMP 36.1; O2SAT 98
[2025-01-15 08:05] VITALS: BP 103/57; PULSE 64; RESP 15; TEMP 36.1; O2SAT 100
[2025-01-15 08:15] VITALS: BP 110/57; PULSE 72; RESP 18; TEMP 36.1; O2SAT 100
[2025-01-18 14:11] LABS: Interpretation Notes (.); Lactase 29.64 (>/= 14.0); Maltase 283.38 (>/= 110.0); Palatinase 18.89 (>/= 8.5); Reference Notes (.); Sucrase 64.49 (>/= 25.0)
== END 2025-01-15 08:40 | disposition home or self-care (01) ==
PROVIDERS: PCP Family Medicine; Visit Provider Internal Medicine Gastroenterology
PROC: 0DJ08ZZ Inspection of Upper Intestinal Tract, Via Natural or Artificial Opening Endoscopic (ICD-10-PCS; CPT 43239; principal; 2025-01-15 07:30)
DX: K31.89 Other diseases of stomach and duodenum (principal); K22.4 Dyskinesia of esophagus; K21.9 Gastro-esophageal reflux disease without esophagitis; Z86.718 Personal history of other venous thrombosis and embolism; I25.10 Atherosclerotic heart disease of native coronary artery without angina pectoris; F17.210 Nicotine dependence, cigarettes, uncomplicated; Z86.16 Personal history of COVID-19; J44.89 Other specified chronic obstructive pulmonary disease; E78.5 Hyperlipidemia, unspecified; Z87.01 Personal history of pneumonia (recurrent); Z88.5 Allergy status to narcotic agent; Z88.0 Allergy status to penicillin; Z88.8 Allergy status to other drugs, medicaments and biological substances; Z79.02 Long term (current) use of antithrombotics/antiplatelets; Z79.82 Long term (current) use of aspirin; Z79.899 Other long term (current) drug therapy
CPT/HCPCS: 43239; 43249; 82657; C1726; J2003; J2704; J7120

== ENCOUNTER 2025-01-28 08:21 | Outpatient (CLI) | payer OTHER, SELFPAY ==
--- NOTE | 2025-01-28 08:15 | MR_ITS ---
FINAL REPORT TECHNIQUE: Multiplanar and multisequence imaging of the cervical spine was obtained. CLINICAL HISTORY: neck pain, BUE pain. bilateral arm weakness. dropping things. headache COMPARISON: None FINDINGS: Alignment is normal. Vertebral body height is preserved. Signal intensity within the substance of the spinal cord is normal. No acute bone marrow edema. No acute paraspinal abnormality. C2/3: A small central disc protrusion is present with no evidence of canal stenosis or neural foraminal narrowing. C3/4: An annular bulge is present with facet osteoarthropathy and endplate degenerative changes. There is severe left neural foraminal narrowing. C4/5: An annular bulge is present with endplate degenerative changes and facet osteoarthropathy. There is no evidence of canal stenosis or neural foraminal narrowing. C5/6: No focal disc herniation, central canal stenosis, or neural foraminal narrowing. C6/7: No focal disc herniation, central canal stenosis, or neural foraminal narrowing. C7/T1: No focal disc herniation, central canal stenosis, or neural foraminal narrowing. IMPRESSION: Degenerative changes in the upper cervical spine are present, most pronounced at the C3-4 level where there is severe left neural foraminal narrowing. Reviewed, Interpreted and Dictated by Leann Ruiz MD Transcribed by Grace Navas Authenticated and [facility]
== END 2025-01-28 23:59 | disposition home or self-care (01) ==
LOC: RAD 08:22
PROVIDERS: PCP Family Medicine; Visit Provider Nurse Practitioner Family
DX: M47.22 Other spondylosis with radiculopathy, cervical region (principal); M48.02 Spinal stenosis, cervical region
CPT/HCPCS: 72141

== ENCOUNTER 2025-04-04 08:13 | Outpatient (CLI) | payer OTHER, SELFPAY ==
--- OUTSIDE RECORDS SUMMARY | 2025-03-03 10:30 | XMS_ITS | Encounter Summary ---
Author Organization Healthcare Address [address] [place] [address] Care Team Providers Care Patternator Name Role Phone Darya Watt APRN Primary Care Provider [phone] Reason for Visit * Reason Comments Consult * Consultation (Routine) - Closed Specialty Diagnoses / Procedures Referred By Talib vasquez Referred To Contact Pain Medicine Diagnoses Abnormal findings on diagnostic imaging of other specified body structures Darya Watt APRN [address] [place] [address] Phone: tel: fax: [facility] Interventional Pain Medicine [address] [place] [address] Phone: tel: fax: Referral ID Status Reason Start Date Expiration Date V isits Requested Visits Authorized [id number] Closed Specialty Services Required 02/06/2025 08/08/2026 1 1 Encounter Details Date Type Department Care Team (Late st Contact Info) Description 03/03/2025 10:30 AM EST Office Visit Interventional Pain Medicine [address] [place] [address] Casper Becker MD [address] [place] [address] Myofascial pain syndrome (Primary Dx) Social History Tobacco Use Types Packs/Day Years [...] AM EDT documented as of this encounter Last Filed Vital Signs Vital Sign Reading Time Taken Comments Blood Pressure 165/82 03/03/2025 10:35 AM EST Pulse 57 03/03/2025 10:35 AM EST Temperature - - Respiratory Rate 18 03/03/2025 10:35 AM EST Oxygen Saturation 99% 03/03/2025 10:35 AM EST Inhaled Oxygen Concentration - - Weight 58.4 kg (128 lb 12 oz) 03/03/2025 10:35 A M EST Height 165.1 cm (5' 5 ) 03/03/2025 10:35 AM EST Body Mass Index 21.42 03/03/2025 10:35 AM EST documented in this encounter Miscellaneous Notes * Progress Notes - Obed Alamo DO - 03/03/2025 10:30 AM EST Images from the original note were not included. Interventional Pain Medicine New Patient Note Subjective: Referring Physician: Darya Watt APRN [address] [place] [address] Record Review: I personally reviewed PCP records Chief Complaint: neck pain History of Present Illness: Arlin Hirsch is a 54 y.o. female with PMHx of CAD, s/p stents, COPD, Patient referred by Darya Watt APRN for evaluation of intervention of cervical radiculopathy Presents with: Site: left sided neck Onset: 2 months, no inciting event Severity: 08/31 Descriptors: aching, constant Aggravating Factors: house work, walking, standing, stairs, pain in left arm with prolonged overhead activity Relieving Factors: adjusting positions, rest Associated Symptoms: referred pain into left arm down to elbow, multiple falls, bilateral hand numbness at night, denies bowel/bladder incontinence, denies saddle anesthesia Global Pain Score: 80.5/100 Current Disabilities: limitations in ADLs/IADLs Functional Goals of Treatment: improvement in function Current Medication: Current Pain Medications EQ Aspirin Adult Low Dose 81 MG EC tablet Take 81 mg by mouth 1 (one) time each day. Previous Medication: Oxycodone 5mg at night Gabapentin 300mg BID Tylenol prn Flexeril Previous Conservative Treatment: conservative care > 6 weeks within the last 6 months medication trials modified activities rest unable to complete HEP due to increased pain unable to complete physical therapy due to increased pain Previous Interventions/Consults: Follows with Dr. Crouch with Pain Management at [facility] Low back: Spinal cord stimulator trial (10/2024), LESIs (August 2024) Other Medical History Work Status/Pain related to work injury: No reports that she has been smoking. She has never used smokeless tobacco. Anticoagulation: Aspirin 81mg, plavix 75mg daily Review of Systems: CONSTITUTIONAL: denies fevers, chills HEENT: denies swallowing difficulties, sore throat CARDIOVASCULAR: denies chest pain, palpitations, syncope RESPIRATORY: denies shortness of breath, cough, wheezing GI: denies change in bowel habits, nausea, vomiting : denies change in bladder function, frequency, dysuria SKIN: denies rash, skin changes MSK: Per HPI NEURO: Per HPI PSYCH: Per HPI General Physical Exam: Constitutional Appears well-developed and well-nourished Head Normocephalic and atraumatic Neck Neck supple Cardiovascular Minimal to no peripheral edema Pulmonary/Chest Effort normal, no shortness of breath noted Skin Skin is warm and dry on exposed skin Neurologic & Musculoskeletal Exam Upper Extremity Region Exam Left (+/-) Right (+/-) Comments Cervical Musculature Tender w/ palpation + + Cervical Facet Pain w/ extension + + Upper Extremity Spurling's - - Upper Extremity Bakody - - Sensation Left Right Comments Neck Normal Normal C5: Shoulder Normal Normal C6: Thumb, radial aspect of hand/forearm (Radial Nerve) Normal Normal C7: Long finger (Median Nerve) Normal Normal C8: Little finger, ulnar aspect of hand/forearm (Ulnar n.) Normal Normal T1; Medial forearm/arm Normal Normal Motor Strength Left Right Comments C5: Shoulder abduction (Deltoid) 5/5 54 C5: Elbow flexion (Biceps, Brachialis) 08/26 54 C6: Wrist extension (ECRB, ECRL) 08/26 54 C7: Elbow extension (Triceps) 08/26 5/5 C8: Finger flexion (Application Architect Manager strength) 5/5 5/5 T1: Finger abduction 5/5 5/5 Reflexes Left Right C5: Biceps 2/4 2/4 C6: Brachioradialis 2/4 2/4 C7: Triceps 2/4 2/4 Harrison's Absent Absent Clonus Absent Absent Region Exam Left (+/-) Right (+/-) Comments Shoulder Inspection - - Shoulder Tenderness to palpation - - Shoulder ROM Full Full Shoulder Neer's - - Shoulder Hawkin's - - Shoulder Empty Can - - Shoulder Yergason's - - Shoulder Crossover - - Shoulder Lift Off - - Imaging/Studies: Images of the following studies have been personally reviewed and my independent interpretation reveals as written: MRI Cervical Spine 01/28/25: left neural foraminal stenosis at C3-4 Labs: Lab Results Component Value Date PLT 307 11/15/2020 No results found for: INR , PROTIME No results found for: HGBA1C Assessment & Plan: Arlin Hirsch is a 54 y.o. presenting for evaluation of neck pain. MRI C-spine with evidence of left neural foraminal stenosis at C3-4. No evidence of radicular symptoms on exam. Patient was originally referred to Neurosurgery. Her presenting symptoms do not require surgical referral at this time. #Myofascial Pain Syndrome, Chronic Worsening -Trigger points noted in the left cervical paraspinals, left trapezius. -Patient is already established with interventional pain provider, Dr. Crouch, [facility]. Follow up with Dr. Crouch to discuss possible TPIs, other treatment options including PT, OMT, acupuncture - She has a significant smoking history with smoking 1 PPD. Discussed that myofascial pain is worsended and harder to treat while smoking. #Axial Neck Pain, Chronic Worsening #Cervical Spondylosis #Facetogenic pain -Etiology of pain today is primarily due to myofascial pain as detailed above. Follow up with Dr. Crouch to discuss treatment options. - Follow up PRN in the future. Cosigned by Casper Becker MD at 03/03/2025 2:57 PM EST Associated attestation - Casper Becker MD - 03/03/2025 2:57 PM EST I saw and evaluated the patient with the resident/fellow. I discussed the case with the resident/fellow and agree with the findings and plan as documented. documented in this encounter Plan of Treatment Not on file documented as of this encounter Visit Diagnoses Diagnosis Myofascial pain syndrome- Primary Unspecified myalgia and myositis documented in this encounter Additional Health Concerns Assessment Noted Time A fall risk assessment has been complete d for the patient 03/03/2025 10:35 AM EST A Body Mass Index follow-up plan has been documented for the patient 03/03/2025 2:57 PM EST documented as of this encounter Care Teams Patternator Relationship Specialty Start Date End Date Darya Watt APRN [address] [place] [address] PCP - General 02/28/25 documented as of this encounter
--- OUTSIDE RECORDS SUMMARY | 2025-04-04 08:15 | XMS_ITS | Encounter Summary ---
Author Organization Healthcare Address [address] [place] [address] Care Team Providers Care Brush Loader And Handle Attacher Name Role Phone Mario Herrera MD Primary Care Provider [phone] Darya Watt APRN Primary Care Provider [phone] Encounter Details Date Type Department Care Team ([facility] st Contact Info) Description 12/16/2024 Orders Only External Location [address] [place] [address] Provider, External Social History Tobacco Use Types Packs/Day Years [...] AM EDT documented as of this encounter Plan of Treatment Not on file documented as of this encounter Procedures Procedure Name Priority Date/Time Associated Diagnosis Comments XR OUTSIDE IMAGES 12/16/2024 9:13 AM EDT documented in this encounter Results * XR OUTSIDE IMAGES (12/16/2024 9:13 AM EDT) Anatomical Region Laterality Modality Radiographic Jeanine ging 12/16/2024 9:13 AM EDT us External Provider IMG XR PROCEDURES Edited Resul t - Final documented in this encounter Visit Diagnoses Not on filedocumented in this encounter Additional Health Concerns Assessment Noted Time A fall risk assessment has been complete d for the patient 12/10/2020 9:13 AM EDT documented as of this encounter Care Teams Brush Loader And Handle Attacher Relationship Specialty Start Date End Date Mario Herrera MD [address] [place] [address] PCP - General 09/04/20 02/27/25 Darya Watt APRN [address] [place] [address] PCP - General 02/28/25 documented as of this encounter
--- OUTSIDE RECORDS SUMMARY | 2025-04-04 08:15 | XMS_ITS | Encounter Summary ---
Author Organization Healthcare Address [address] [place] [address] Care Team Providers Care Bulkhead Carpenter Name Role Phone Mario Herrera MD Primary Care Provider + [phone] Darya Watt APRN Primary Care Provider [phone] Encounter Details Date Type Department Care Team (Late st Contact Info) Description 01/28/2025 Orders Only External Location [address] [place] [address] Provider, External Social History Tobacco Use Types [...] Procedure Name Priority Date/Time Associated Diagnosis Comments MR NEURO OUTSIDE IMAGES 01/28/2025 8:20 AM EDT documented in this encounter Results * MR NEURO OUTSIDE IMAGES (01/28/2025 8:20 AM EDT) Anatomical Region Laterality Modality Magnetic Resonan ce 01/28/2025 8:20 AM EDT us External Provider IMG MRI PROCEDURES Edited Resu lt - Final documented in this encounter Visit Diagnoses Not on filedocumented in this encounter Additional Health Concerns Assessment Noted Time A fall risk assessment has been complete d for the patient 12/10/2020 9:13 AM EDT documented as of this encounter Care Teams Bulkhead Carpenter Relationship Specialty Start Date End Date Mario Herrera MD [address] [place] [address] PCP - General 09/04/20 02/27/25 Darya Watt APRN [address] [place] [address] PCP - General 02/28/25 documented as of this encounter
--- OUTSIDE RECORDS SUMMARY | 2025-04-04 08:15 | XMS_ITS | Encounter Summary ---
Author Organization Healthcare Address [address] [place] [address] Care Team Providers Care Wound/Ostomy Nurse Name Role Phone Darya Watt APRN Primary Care Provider [phone] Encounter Details Date Type Department Care Team (Latest Contact Info) Description 03/03/2025 Travel Social History Tobacco Use Types Packs/Day Years [...] documented as of this encounter Care Teams Wound/Ostomy Nurse Relationship Specialty Start Date End Date Darya Watt APRN [address] [place] [address] PCP - General 02/28/25 documented as of this encounter
--- OUTSIDE RECORDS SUMMARY | 2025-04-04 08:16 | XMS_ITS | Clinical Summary ---
Author Organization [facility] Address [address] [place] [address] Care Team Providers Care Flat Lock Operator Name Role Phone Darya Watt EULOGIO Primary Care Provider [phone] Allergies Active Allergy Reactions Criticality Noted Date [...] Problem Noted Date Diagnosed Date Hypertension 11/17/2020 Peripheral vascular disease 11/10/2020 High cholesterol 11/10/2020 Orthopnea 11/10/2020 Gastroesophageal reflux disease 11/10/2020 Coronary artery disease, ang viry presence unspecified, unspecified vessel or lesion type, unspecified whether three affiliated or transplanted heart 07/29/2020 Overview (01/24/2022): Regulatory Update January 2022 Intraabdominal mass 06/04/2020 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 [place] [address] Casper Becker MD Myofascial pain syndrome (Primary Dx) 03/03/2025 Travel 01/28/2025 Orders Only External Location [address] [place] [address] Provider, External from Last 3 Months Family History Medical [...] Pulse 57 03/03/2025 10:35 AM EST Temperature 36.8 C (98.2 F) 11/15/2020 7:40 AM EDT Respiratory Rate 18 03/03/2025 10:35 AM EST Oxygen Saturation 99% 03/03/2025 10:35 AM EST Inhaled Oxygen Concentration - - Weight 58.4 kg (128 lb 12 oz) 03/03/2025 10:35 A M EST Height 165.1 cm (5' 5 ) 03/03/2025 10:35 AM EST Body Mass Index 21.42 03/03/2025 10:35 AM EST Plan of Treatment Health Maintenance Due Date Last Done Comments [facility]-Depression Screening 1969 [facility]-HIV Screening 1969 [facility]-Hepatitis C Screening 1969 [facility]-/Child/Adol SDOH Screenings 1969 [facility]- SDOH Screenings 1987 [facility]-Adult SDOH Screenings 1987 [facility]-Hepatitis B Vaccines (3 of 3 - 19+ 3-dose series) 06/22/1999 01/27/1999, 12/22/1998 [facility]-DTaP,Tdap,and Td Vaccine s (1 - Tdap) 02/08/2007 02/07/2007, 12/27/1995 CT Colonography 2014 Colonoscopy 2014 FIT-DNA 2014 FIT 2014 FOBT 2014 Sigmoidoscopy 2014 [facility]-Colorectal Cancer Screening 2014 [facility]-Breast Cancer Screening 2019 [facility]-Zoster Vaccines (1 of 2) 2019 [id number] Vaccine (3 - 2024- season) 2024 05/06/2020, 04/20/2020 [facility]-Pneumococcal Vaccine: 50 + Years Completed 07/26/2022 [facility]-Influenza Vaccine Completed 02/04/2025 , 06/10/2024, 01/23/2020 HPV Vaccines Aged Out No longer eligi [...] this topic Medical Devices Implanted Type Area Scanning Supervisor Device Identifier Shelf Expiration Date Model / Serial / Lot Stent Stent N/A: Other (See Comments) Description:Celiac artery Procedures Procedure Name Priority Date/Time Associated Diagnosis Comments MR NEURO OUTSIDE IMAGES 01/28/2025 8:20 AM EDT from Last 3 Months Results * MR NEURO OUTSIDE IMAGES (01/28/2025 8:20 AM EDT) Anatomical Region Laterality Modality Magnetic Resonan ce 01/28/2025 8:20 AM EDT us External Provider IMG MRI PROCEDURES Edited Resu lt - Final from Last 3 Months Insurance [employer] [facility] MEDICAID Care Teams Flat Lock Operator Relationship Specialty Start Date End Date Darya Watt APRN [address] [place] [address] PCP - General 02/28/25
== END 2025-04-04 23:59 | disposition home or self-care (01) ==
LOC: RT 08:13
PROVIDERS: PCP Family Medicine; Visit Provider Internal Medicine Pulmonary Disease
DX: R06.09 Other forms of dyspnea (principal)
CPT/HCPCS: 94010; 94618

== ENCOUNTER 2025-04-14 21:47 | Emergency (ER) | payer OTHER, SELFPAY ==
--- OUTSIDE RECORDS SUMMARY | 2025-03-03 10:30 | XMS_ITS | Encounter Summary ---
Author Organization Healthcare Address [address] [place] [address] Care Team Providers Care Senior Procurement Specialist Name Role Phone Darya Watt APRN Primary Care Provider [phone] Reason for Visit * Reason Comments Consult * Consultation (Routine) - Closed Specialty Diagnoses / Procedures Referred By Talib vasquez Referred To Contact Pain Medicine Diagnoses Abnormal findings on diagnostic imaging of other specified body structures Darya Watt APRN [address] [place] [address] Phone: tel: fax: [facility] Interventional Pain Medicine [address] [place] [address] Phone: tel: fax: Referral ID Status Reason Start Date Expiration Date V isits Requested Visits Authorized [id number] Closed Specialty Services Required 02/06/2025 08/08/2026 1 1 Encounter Details Date Type Department Care Team (Late st Contact Info) Description 03/03/2025 10:30 AM EST Office Visit Interventional Pain Medicine [address] [place] [address] Casper Becker MD [address] [place] [address] Myofascial pain syndrome (Primary Dx) [...] Note Subjective: Referring Physician: Darya Watt APRN [address] [place] [address] Record Review: I personally reviewed PCP records [...] with Dr. Crouch with Pain Management at [facility] Low back: Spinal cord stimulator trial (10/2024), [...] extension (Triceps) 08/26 5/5 C8: Finger flexion (Head Porter strength) 5/5 5/5 T1: Finger abduction 5/5 [...] established with interventional pain provider, Dr. Crouch, [facility]. Follow up with Dr. Crouch to discuss [...] documented as of this encounter Care Teams Senior Procurement Specialist Relationship Specialty Start Date End Date Darya Watt APRN [address] [place] [address] PCP - General 02/28/25 documented as of this encounter
[2025-04-14] VITALS (9 sets, daily range): BP systolic 125–166; BP diastolic 70–75; PULSE 65–79; RESP 20; TEMP 36.8; O2SAT 97–99; BMI 22.4
--- OUTSIDE RECORDS SUMMARY | 2025-04-14 21:58 | XMS_ITS | Encounter Summary ---
Author Organization Healthcare Address [address] [place] [address] Care Team Providers Care Vp Lab Name Role Phone Mario Herrera MD Primary Care Provider + [phone] Darya Watt APRN Primary Care Provider [phone] Encounter Details Date Type Department Care Team ([facility] st Contact Info) Description 12/16/2024 Orders Only External Location [address] [place] [address] Provider, External Social History Tobacco Use Types [...] documented as of this encounter Care Teams Vp Lab Relationship Specialty Start Date End Date Mario Herrera MD [address] [place] [address] PCP - General 09/04/20 02/27/25 Darya Watt APRN [address] [place] [address] PCP - General 02/28/25 documented as of this encounter
--- OUTSIDE RECORDS SUMMARY | 2025-04-14 21:58 | XMS_ITS | Encounter Summary ---
Author Organization Healthcare Address [address] [place] [address] Care Team Providers Care Sales Office Manager Name Role Phone Darya Watt APRN Primary Care Provider [phone] Encounter Details Date Type Department Care Team [...] documented as of this encounter Care Teams Sales Office Manager Relationship Specialty Start Date End Date Darya Watt APRN [address] [place] [address] PCP - General 02/28/25 documented as of this encounter
--- OUTSIDE RECORDS SUMMARY | 2025-04-14 21:58 | XMS_ITS | Clinical Summary ---
Author Organization [facility] Address [address] [place] [address] Care Team Providers Care Floor Coverer Name Role Phone Darya Watt EULOGIO Primary Care Provider [phone] Allergies Active Allergy Reactions Criticality Noted Date [...] unspecified vessel or lesion type, unspecified whether [place] or transplanted heart 07/29/2020 Overview (01/24/2022): Regulatory [...] Pain Medicine [address] [place] [address] Casper Becker MD Myofascial pain syndrome (Primary Dx) 03/03/2025 Travel 01/28/2025 Orders Only External Location [address] [place] [address] Provider, External from Last 3 Months Family [...] 2019 [facility]-Zoster Vaccines (1 of 2) 2019 [id number] Vaccine (3 - 2024- season) 2024 05/06/2020, 04/20/2020 [facility]-Pneumococcal Vaccine: 50 + Years Completed 07/26/2022 [facility]-Influenza Vaccine Completed 02/04/2025 , 06/10/2024, 01/23/2020 HPV Vaccines (No Doses Required) Completed [facility]-HIB Vaccines Aged Out No longer e [...] this topic Medical Devices Implanted Type Area Sub Plant Manager Device Identifier Shelf Expiration Date Model / Serial / Lot Stent Stent N/A: Other (See Comments) Description:Celiac artery Procedures Procedure Name Priority Date/Time Associated Diagnosis Comments MR NEURO OUTSIDE IMAGES 01/28/2025 8:20 AM EDT from Last 3 Months Results * MR NEURO OUTSIDE IMAGES (01/28/2025 8:20 AM EDT) Anatomical Region Laterality Modality Magnetic Resonan ce 01/28/2025 8:2 0 AM EDT us External Provider IMG MRI PROCEDURES Edited Resu lt - Final from Last 3 Months Insurance AETNA [facility] MEDICAID Care Teams Floor Coverer Relationship Specialty Start Date End Date Darya Watt APRN [address] [place] [address] PCP - General 02/28/25
--- OUTSIDE RECORDS SUMMARY | 2025-04-14 21:58 | XMS_ITS | Encounter Summary ---
Author Organization Healthcare Address [address] [place] [address] Care Team Providers Care Chip Silo Tender Name Role Phone Mario Herrera MD Primary Care Provider + [phone] Darya Watt APRN Primary Care Provider [phone] Encounter Details Date Type Department Care Team (Late st Contact Info) Description 01/28/2025 Orders Only External Location [address] [place] [address] Provider, External Social History Tobacco Use Types [...] documented as of this encounter Care Teams Chip Silo Tender Relationship Specialty Start Date End Date Mario Herrera MD [address] [place] [address] PCP - General 09/04/20 02/27/25 Darya Watt APRN [address] [place] [address] PCP - General 02/28/25 documented as of this encounter
--- NOTE | 2025-04-14 21:59 | XR_ITS ---
PROCEDURE INFORMATION: Exam: XR Left Knee Exam date and time: 04/14/2025 10:05 PM Age: 54 years old Clinical indication: Pain; Knee; Left; Additional info: Fall TECHNIQUE: Imaging protocol: Radiologic exam of the left knee. Views: 4 or more views. COMPARISON: US ARTERIAL LOWER EXT REST 02/20/2023 3:23 PM FINDINGS: Bones/joints: Normal. No fracture evident. Soft tissues: Normal. IMPRESSION: No acute findings.
--- NOTE | 2025-04-14 22:11 | XR_ITS ---
PROCEDURE INFORMATION: Exam: XR Left Tibia and Fibula Exam date and time: 04/14/2025 10:49 PM Age: 54 years old Clinical indication: Injury or trauma; Fall; Other: Pain; Additional info: Left knee/leg injury TECHNIQUE: Imaging protocol: Radiologic exam of the left tibia and fibula. Views: 2 views. COMPARISON: CR XR ANKLE LT MIN 3V 08/20/2024 10:10 AM FINDINGS: Bones/joints: Normal. No acute fracture identified. Soft tissues: Normal. IMPRESSION: No acute findings.
[2025-04-14] MEDS: IBUPROFEN 800 MG TABLET PO (22:25)
--- NOTE | 2025-04-14 22:47 | HMH.EDGENADL ---
Discharge Plan Disposition Patient Disposition: Home, Self-Care Condition: Good Prescriptions Prescriptions: No Action montelukast 10 mg tablet 10 mg PO DAILY Patient Comments: TAKE 1 TABLET BY MOUTH ONCE DAILY fluticasone propionate [Flonase Allergy Relief] 50 mcg/actuation spray,suspension 2 spray intranasal DAILY 90 Days Qty: 16 2RF Rx Instructions: administer into each nostril azelastine 137 mcg (0.1 %) spray,non-aerosol 2 spray intranasal HS 90 Days Qty: 30 2RF Rx Instructions: administer into each nostril ipratropium-albuterol 0.5 mg-3 mg(2.5 mg base)/3 mL solution for nebulization 3 ml inhalation QID PRN (Reason: shortness of breath or wheezing) 90 Days Qty: 270 3RF Trelegy Ellipta 200-62.5-25 mcg blister with device 1 inh inhalation DAILY 90 Days Qty: 90 2RF levalbuterol tartrate [Xopenex HFA] 45 mcg/actuation HFA aerosol inhaler 2 inh inhalation Q6H PRN (Reason: shortness of breath or wheezing) 90 Days Qty: 15 3RF gabapentin 300 mg capsule See Rx Instructions .Route .COMPLEX Qty: 60 1RF Rx Instructions: Take one tablet twice dailly and 2 tablets at night; oxycodone-acetaminophen [Percocet] 5-325 mg tablet 1 tab PO DAILY PRN (Reason: pain) Qty: 20 0RF mupirocin 2 % ointment 1 applic topical BID 14 Days Qty: 22 1RF ammonium lactate 12 % cream 1 applic topical BID 30 Days Qty: 385 2RF pantoprazole 40 mg tablet,delayed release (DR/EC) See Rx Instructions .ROUTE BID Qty: 180 3RF Dose Instruction: Take 1 tablet by mouth once daily Rx Instructions: Take 1 tablet by mouth once daily twice a day; levocetirizine 5 mg tablet 5 mg PO DIRECTED Patient Comments: TAKE 1 TABLET BY MOUTH ONCE DAILY ammonium lactate 12 % cream 1 applic topical BID 30 Days Qty: 385 2RF cetirizine [All Day Allergy (cetirizine)] 10 mg tablet 10 mg PO DAILY Qty: 90 0RF aspirin 81 mg tablet,delayed release (DR/EC) 81 mg PO DAILY Qty: 90 1RF Rx Instructions: 81 mg orally daily; bisoprolol fumarate 5 mg tablet See Rx Instructions .ROUTE .COMPLEX Qty: 135 1RF Dose Instruction: TAKE 1 & 1/2 (ONE & ONE-HALF) TABLETS BY MOUTH ONCE DAILY Rx Instructions: TAKE 1 & 1/2 (ONE & ONE-HALF) TABLETS BY MOUTH ONCE DAILY famotidine 20 mg tablet See Rx Instructions .ROUTE .COMPLEX Qty: 90 2RF Dose Instruction: Take 1 tablet by mouth once daily Rx Instructions: Take 1 tablet by mouth once daily clopidogrel 75 mg tablet See Rx Instructions .ROUTE .COMPLEX Qty: 90 0RF Dose Instruction: Take 1 tablet by mouth once daily Rx Instructions: Take 1 tablet by mouth once daily levocetirizine 5 mg tablet 5 mg PO DAILY PRN (Reason: allergy symptoms) Qty: 30 2RF amitriptyline 25 mg tablet 25 mg PO HS Qty: 30 1RF rosuvastatin [Crestor] 40 mg tablet See Rx Instructions .ROUTE .COMPLEX Rx Instructions: Take 1 tablet by mouth once daily prucalopride 2 mg tablet 2 mg PO DAILY Qty: 30 12RF Rx Instructions: Please take 1 tablet by mouth daily Referrals Follow up/Referrals: Darya Watt APRN [Primary Care Provider, Family Practice] - See instructions Danial Darling DO [Staff Physician, Orthopedics] - See instructions Activity Restrictions/Add. Instructions Additional Instructions/Restrictions: Take Tylenol and ibuprofen [id number] for the next 3 days. Use ice to help with the swelling. You can use heat for comfort. I have sent you with a referral to her orthopedic doctor if you have continued pain that lasts more than a week or if you are having difficulties ambulating still beyond a week. You may need an MRI at the time. You will have to call them to schedule an appointment. Clinical Impressions Clinical Impression: Acute knee pain, Traumatic effusion of knee joint Print Language Print Language: American Discharge ED Provider: Rain Del Valle Adult [facility] General Chief complaint: PAIN Stated complaint: AO 04/14/25 0700 Left Knee injury Time Seen by Provider: 04/14/25 22:47 Mode of Arrival: Ambulatory Source of Information: Patient and Relative Description of Symptoms (Recalled from ER Triage Doc. by RN): patient presents after fall this morning. she tripped over her dogs bed and ever since she has had issues with ehr left knee. she rates the pain 8/10 currently and took tylenol at 1700. History of Present Illness HPI narrative: Patient is a 54-year-old female on aspirin and Plavix who presented to the emergency department after a fall. Patient states that she tripped over the dog bed earlier today. Patient states that she has had some difficulties with pain and walking since that time. Patient states that when she fell she did hit her head but did not lose consciousness. Patient reports some pain on the sides of her neck but denies any pain in the midline of her neck. Patient states that she does not have any chest pain or abdominal pain or back pain. Patient states that she had no prior preceding symptoms. Such as chest pain or shortness of breath. Patient states that her knee has become more swollen over the day which is what brought her here to the emergency department. Related Data Home Medications ?Medication ?Instructions ?Recorded ?Confirmed montelukast 10 mg tablet 10 mg PO DAILY 04/25/24 04/04/25 levocetirizine 5 mg tablet 5 mg PO DIRECTED 10/07/24 04/04/25 rosuvastatin 40 mg tablet (Crestor) See Rx Instructions .Route .COMPLEX 01/07/25 04/04/25 Previous Rx's ?Medication ?Instructions ?Recorded cetirizine 10 mg tablet (All Day 10 mg PO DAILY #90 tabs 11/10/23 Allergy (cetirizine)) ammonium lactate 12 % topical cream 1 applic topical BID dry skin, 07/08/24 callus care 30 days #385 grams aspirin 81 mg tablet,delayed 81 mg PO DAILY thiiner #90 tabs 07/15/24 release pantoprazole 40 mg tablet,delayed See Rx Instructions .Route BID 08/05/24 release #180 tabs bisoprolol fumarate 5 mg tablet See Rx Instructions .Route 11/04/24 .COMPLEX #135 tabs azelastine 137 mcg (0.1 %) nasal 2 spray intranasal HS 90 days #30 12/02/24 spray mL fluticasone propionate 50 2 spray intranasal DAILY 90 days 12/02/24 mcg/actuation nasal #16 grams spray,suspension (Flonase Allergy Relief) ipratropium 0.5 mg-albuterol 3 mg 3 ml inhalation QID PRN shortness 12/02/24 (2.5 mg base)/3 mL nebulization of breath or wheezing 90 days #270 soln mL famotidine 20 mg tablet See Rx Instructions .Route 01/02/25 .COMPLEX #90 tabs prucalopride 2 mg tablet 2 mg PO DAILY #30 tabs 01/15/25 gabapentin 300 mg capsule See Rx Instructions .Route 02/04/25 .COMPLEX Pain #60 caps oxycodone-acetaminophen 5 mg-325 1 tab PO DAILY PRN pain #20 tabs 02/04/25 mg tablet (Percocet) mupirocin 2 % topical ointment 1 applic topical BID infection 14 02/13/25 days #22 grams clopidogrel 75 mg tablet See Rx Instructions .Route 02/28/25 .COMPLEX #90 tabs ammonium lactate 12 % topical cream 1 applic topical BID dry skin, 03/06/25 callus care 30 days #385 grams levocetirizine 5 mg tablet 5 mg PO DAILY PRN allergy symptoms 04/02/25 #30 tabs amitriptyline 25 mg tablet 25 mg PO HS #30 tabs 04/03/25 fluticasone fur. 200 mcg-umeclid 1 inh inhalation DAILY 90 days #90 04/04/25 62.5 mcg-vilant 25 mcg ea inhalat.powder (Trelegy Ellipta) levalbuterol tartrate 45 2 inh inhalation Q6H PRN shortness 04/04/25 mcg/actuation aerosol inhaler of breath or wheezing 90 days #15 (Xopenex HFA) grams Allergies Allergy/AdvReac Type Severity Reaction Status Date / Time fluoxetine (From Prozac) Allergy Intermediate I-RASH Verified 04/04/25 10:27 Penicillins Allergy Intermediate I-RASH Verified 04/04/25 10:27 tramadol AdvReac dizziness, Verified 04/04/25 10:27 sweats PFSH PFSH Disclaimer: The information contained in this section may have been updated after the patient was seen, as this information can be updated by other users. Medical History Wheeze Coughing Pneumonia Claudication Swelling Calf pain Upper respiratory infection COVID Nasal congestion Maxillary sinusitis right maxillary sinusitis per CT head/brain sd Bronchitis TMJ (dislocation of temporomandibular joint) Left ear pain History of recurrent pneumonia Hammertoes of both feet Tailor's bunion of right foot Mass of skin of right foot Angina pectoris Abnormal abdominal CT scan Acute embolism and thrombosis of superficial vein of right arm Hyperglycemia Pre-op evaluation Biliary stent obstruction Chronic sinusitis Sprain of right ankle Community acquired pneumonia Acute sinusitis Hypokalemia COPD mixed type Open wound of left great toe Unspecified open wound of left great toe with damage to nail, initial encounter Pain of toe Onychocryptosis Eosinophilia Hyperlipidemia Encounter for screening for malignant neoplasm of lung in current smoker with 30 pack year history or greater Tobacco abuse disorder Smoking cessation Tobacco abuse counseling Right middle lobe syndrome History of recurrent pneumonia COPD (chronic obstructive pulmonary disease) Exertional shortness of breath Encounter for Postoperative Care Both of the lesions removed were consistent with epidermoid cysts. Edema of soft tissue of right ankle region Dyspnea Foot sprain Right carotid bruit CAD (coronary artery disease) Left arm numbness Surgical History History of cholecystectomy History of abdominal surgery H/O total hysterectomy Family History Mother Lung cancer Other Cancer Coronary artery disease Heart attack Hyperlipidemia Hypertension Thyroid disorder Social History Smoking Status: Current every day smoker tobacco type: cigarettes packs per day: 1 years smoked: 40 second hand exposure: No alcohol intake: never substance use type: denies use current occupational status: other Travel in the last 8 weeks?: None household members: family housing: house marital status: current occupation: [employer] current occupational exposures/hazards: No caffeine: Yes Have you lived/traveled outside [place] in past 30 days?: No Contact w/someone who lives/traveled outside [place] past 30 days?: No Exposure to someone with infectious disease in past 14 days?: No Do you have a fever (greater than 100.4 F or 38 C)?: No Have you tested positive for COVID-19?: No Exposed to someone with COVID-19 in past 14 days?: No Do you have a sore throat?: No Do you have a cough?: No Do you have any weakness?: No Do you have any diarrhea?: No Are you experiencing any unusual bleeding?: No Do you have any muscle aches/pain?: No Do you have any abdominal pain?: No Are you experiencing loss of taste or smell?: No Other Medical History Have you received the Flu Vaccine for this season: Yes Have you received the Pneumonia Vaccine: Yes ROS Obtained: Yes All systems reviewed & no additional complaints except as documented and Yes Systems reviewed as appropriate & no additional complaints except as documented Physical Exam General General appearance: alert and in no apparent distress Head Head exam: atraumatic, normocephalic and normal inspection Eye Eye exam: Present normal appearance, PERRL and EOMI; Absent scleral icterus ENT ENT exam: Present normal exam and normal external ear exam Neck Neck exam: Present normal inspection, full ROM and tenderness (no midline ) Chest Chest inspection: Present normal inspection and symmetric chest wall rise Respiratory Respiratory exam: Present normal lung sounds bilaterally; Absent respiratory distress or wheezes Cardiovascular Cardiovascular exam: Present regular rate, normal rhythm and normal heart sounds Abdominal Exam Abdominal exam: Present soft and distention; Absent tenderness, guarding or rebound Extremities Exam Extremities exam: Present normal inspection, full ROM and other (LLE with some tenderness posterior to the knee, no laxity, suprapatellar effusion, medial knee tenderness, no lateral tenderness) Back Exam Back exam: Present normal inspection and full ROM Neurological Exam Neurological exam: Present alert and oriented X3 Psychiatric Psychiatric exam: Present normal affect and normal mood Skin Skin exam: Present warm and dry Medical Decision Making Medical Records Screening: Per USPSTF and CDC recommendations, given the prevalence of disease in our region, it is our hospital?s policy to screen for HIV and viral Hepatitis for all patients aged 18 and over and those with ongoing risk factors. Shahbaz Inquiry Pt receiving controlled substance: No Vital Signs: 04/14/25 21:56 04/14/25 22:02 04/14/25 22:15 Temperature 98.2 F Temperature Source Oral Pulse Rate 68 73 Pulse Rate [Right Radial] 74 Respiratory Rate 20 Blood Pressure Blood Pressure [Right Arm] 166/70 H Blood Pressure Mean Blood Pressure Mean [Right Arm] 102 Blood Pressure Source [Right Arm] Automatic Cuff Blood Pressure Position [Right Arm] Sitting 02 Sat by Pulse Oximetry 97 98 98 Oxygen Delivery Method Room Air Room Air Room Air 04/14/25 22:30 04/14/25 22:30 04/14/25 22:45 Temperature Temperature Source Pulse Rate 75 68 Pulse Rate [Right Radial] Respiratory Rate Blood Pressure 125/71 Blood Pressure [Right Arm] Blood Pressure Mean 100 Blood Pressure Mean [Right Arm] Blood Pressure Source [Right Arm] Blood Pressure Position [Right Arm] 02 Sat by Pulse Oximetry 97 98 Oxygen Delivery Method Room Air Room Air 04/14/25 23:00 04/14/25 23:00 04/14/25 23:15 Temperature Temperature Source Pulse Rate 68 71 Pulse Rate [Right Radial] Respiratory Rate Blood Pressure 126/75 Blood Pressure [Right Arm] Blood Pressure Mean 99 Blood Pressure Mean [Right Arm] Blood Pressure Source [Right Arm] Blood Pressure Position [Right Arm] 02 Sat by Pulse Oximetry 98 97 Oxygen Delivery Method Room Air Room Air 04/14/25 23:36 Temperature Temperature Source Pulse Rate 79 Pulse Rate [Right Radial] Respiratory Rate Blood Pressure Blood Pressure [Right Arm] Blood Pressure Mean Blood Pressure Mean [Right Arm] Blood Pressure Source [Right Arm] Blood Pressure Position [Right Arm] 02 Sat by Pulse Oximetry 98 Oxygen Delivery Method Room Air Lab Data Lab results reviewed: Yes I reviewed the patient's lab results. Orders (Tests/Meds): ED MEDICATIONS Discontinued Medications Generic Name Dose Route Start Last Admin Trade Name Freq PRN Reason Stop Dose Admin Ibuprofen 800 mg 04/14/25 22:10 04/14/25 22:25 Ibuprofen 800 Mg Tablet PO 04/14/25 22:11 800 mg ONCE ONE Administration ORDERS Category Date Time Status CT cervical spine wo con Stat Cat Scan 04/14/25 23:[address] head/brain wo con Stat Cat Scan 04/14/25 23:17 Completed Knee XR left 4 views [XR knee LT 4V] Stat Exams 04/14/25 21:59 Completed XR tibia fibula LT 2V Stat Exams 04/14/25 22:11 Completed Medical Decision Narrative: Patient is a 54-year-old female with no significant past medical history who is on aspirin and Plavix who presented to the emergency department after mechanical fall. Patient tripped and fell earlier today landed onto her knees somehow as well as her head. Patient did not have any loss of consciousness. Differential includes but not limited to: Intracranial pathology, knee fracture, knee dislocation, cervical spine pathology, amongst others. X-rays of the left knee and leg were obtained as well as CT head and CT cervical spine. X-rays of the left knee showed no acute fractures. Patient was given ibuprofen as she took Tylenol prior to arrival. CT head and CT cervical spine showed no acute pathology. At this time I felt the patient was stable and appropriate for discharge this patient was able to ambulate in the emergency department I recommended the patient use heat and ice for comfort Tylenol and ibuprofen [id number] for the next 3 days. Patient was given an outpatient referral to Dr. Darling if her symptoms were to continue. Patient was otherwise discharged home in stable condition return precautions were discussed. Critical Care Critical Care Time Critical Care Time: No
--- NOTE | 2025-04-14 23:17 | CT_ITS ---
PROCEDURE INFORMATION: Exam: CT Cervical Spine Without Contrast Exam date and time: 04/14/2025 11:33 PM Age: 54 years old Clinical indication: Injury or trauma; Fall; Additional info: Fall on blood thinners TECHNIQUE: Imaging protocol: Computed tomography of the cervical spine without contrast. Radiation optimization: All CT scans at this facility use at least one of these dose optimization techniques: automated exposure control; mA and/or kV adjustment per patient size (includes targeted exams where dose is matched to clinical indication); or iterative reconstruction. COMPARISON: MR CERVICAL SPINE WO CON 01/28/2025 8:20 AM FINDINGS: Bones: No acute fracture. Normal alignment. No significant disc bulge or herniation. No severe spinal canal stenosis. Mild degenerative disc disease noted at the C3-C4 level. Lungs: Lung apices are normal. Soft tissues: Unremarkable. IMPRESSION: No acute cervical spine fracture.
--- NOTE | 2025-04-14 23:17 | CT_ITS ---
PROCEDURE INFORMATION: Exam: CT Head Without Contrast Exam date and time: 04/14/2025 11:31 PM Age: 54 years old Clinical indication: Injury or trauma; Fall; Additional info: Fall on blood thinners TECHNIQUE: Imaging protocol: Computed tomography of the head without contrast. Radiation optimization: All CT scans at this facility use at least one of these dose optimization techniques: automated exposure control; mA and/or kV adjustment per patient size (includes targeted exams where dose is matched to clinical indication); or iterative reconstruction. COMPARISON: 1. MR HEAD/BRAIN WO/W CON 08/20/2024 8:[address] HEAD/BRAIN WO CON 11/09/2023 3:18 PM FINDINGS: Brain: Normal. No hemorrhage. Unremarkable white matter. No mass effect. Cerebral ventricles: No ventriculomegaly. Paranasal sinuses: Visualized sinuses are unremarkable. No fluid levels. Mastoid air cells: Visualized mastoid air cells are well aerated. Bones: Unremarkable. No acute fracture. Soft tissues: Unremarkable. IMPRESSION: Stable noncontrast CT brain. No acute intracranial abnormality.
[2025-04-15] VITALS: BP 125/68; PULSE 65; O2SAT 98
[2025-04-15 00:39] VITALS: BP 125/68; PULSE 65; RESP 16; TEMP 36.8; O2SAT 98
== END 2025-04-15 00:40 | disposition home or self-care (01) ==
PROVIDERS: Emergency Provider Student in an Organized Health Care Education/Training Program; PCP Family Medicine
DX: S89.92XA Unspecified injury of left lower leg, initial encounter (principal); M25.462 Effusion, left knee; F17.210 Nicotine dependence, cigarettes, uncomplicated; W01.10XA Fall on same level from slipping, tripping and stumbling with subsequent striking against unspecified object, initial encounter
CPT/HCPCS: 70450; 72125; 73564; 73590; 99284; 99285

== ENCOUNTER → 2025-04-22 10:02 | Outpatient (RCR) | payer OTHER, SELFPAY | LOC: CR 10:02 | PROVIDERS: PCP Family Medicine; Visit Provider Internal Medicine Pulmonary Disease | DX: I65.23 Occlusion and stenosis of bilateral carotid arteries (principal) ==

== ENCOUNTER → 2025-04-22 13:00 | Outpatient (RCR) | payer OTHER, SELFPAY | LOC: PULREHAB 13:00 | PROVIDERS: PCP Family Medicine; Visit Provider Internal Medicine Pulmonary Disease | DX: J44.9 Chronic obstructive pulmonary disease, unspecified (principal) | CPT/HCPCS: 94626 ==